=== PATIENT | male | born 1955 | race Caucasian/White ===

== ENCOUNTER → 2018-03-23 09:02 | Outpatient (CLI) | payer MEDICARE, OTHER, SELFPAY ==
[2018-03-23 09:40] LABS: Hemoglobin A1C 6.4 % (4.5-6.2)
[2018-03-23 10:36] LABS: ALT 44 U/L (12-78); AST 21 U/L (15-37); Albumin 3.8 g/dL (3.4-5.0); Alkaline Phosphatase 40 U/L (46-116); Anion Gap 7.9 mmol/L (3-11); BUN 16 mg/dL (7-18); Bilirubin, Total 0.5 mg/dL (0.2-1.0); CO2 30.1 mmol/L (21.0-32.0); CREATININE 1.22 mg/dL (0.70-1.30); Chloride 102 mmol/L (98-107); Cholesterol 139 mg/dL (50-200); Estimated GFR 59.62 (mL/min/1.73m2); Glucose 121 mg/dL (70-100); HDL Cholesterol 32 mg/dL (40-60); LDL CHOLESTEROL 90 mg/dL (<100); Potassium 4.6 mmol/L (3.5-5.1); Sodium 140 mmol/L (136-145); Total Protein 6.8 g/dL (6.4-8.2); Triglyceride 160 mg/dL (30-150)
[2018-03-23 10:56] LABS: TSH 2.64 uIU/mL (0.358-3.74)
== END ==
PROVIDERS: PCP Family Medicine; Visit Provider Family Medicine
DX: I10 Essential (primary) hypertension (principal); E78.5 Hyperlipidemia, unspecified; E03.9 Hypothyroidism, unspecified; R73.01 Impaired fasting glucose
CPT/HCPCS: 36415; 80053; 80061; 83721; 83036; 84443

== ENCOUNTER → 2018-04-04 10:09 | Outpatient (CLI) | payer MEDICARE, OTHER, SELFPAY ==
[2018-04-05 11:27] LABS: Hepatitis C Ab w Rflx HCV PCR Negative (NEGAT)
== END ==
PROVIDERS: PCP Family Medicine; Visit Provider Family Medicine
DX: Z11.59 Encounter for screening for other viral diseases (principal)
CPT/HCPCS: 36415; 86803

== ENCOUNTER → 2018-05-01 08:03 | Outpatient (BNVA) | payer MEDICARE, OTHER, SELFPAY | PROVIDERS: Visit Provider Psychiatry & Neurology Neurology | DX: G56.03 Carpal tunnel syndrome, bilateral upper limbs (principal); G56.23 Lesion of ulnar nerve, bilateral upper limbs; I10 Essential (primary) hypertension | CPT/HCPCS: 95911; 99215 ==

== ENCOUNTER → 2018-05-04 08:03 | Outpatient (BNVA) | payer MEDICARE, OTHER, SELFPAY | PROVIDERS: Visit Provider Psychiatry & Neurology Neurology | DX: R69 Illness, unspecified (principal) ==

== ENCOUNTER → 2018-05-14 09:46 | Outpatient (BNVA) | payer MEDICARE, OTHER, SELFPAY | PROVIDERS: PCP Family Medicine; Referring Provider Family Medicine; Visit Provider Orthopaedic Surgery | DX: G56.01 Carpal tunnel syndrome, right upper limb (principal); G56.02 Carpal tunnel syndrome, left upper limb | CPT/HCPCS: 99211; 99213; L3908 ==

== ENCOUNTER → 2018-06-11 08:57 | Outpatient (BNVA) | payer MEDICARE, OTHER, SELFPAY | PROVIDERS: PCP Family Medicine; Referring Provider Family Medicine; Visit Provider Orthopaedic Surgery | DX: G56.03 Carpal tunnel syndrome, bilateral upper limbs (principal); G56.23 Lesion of ulnar nerve, bilateral upper limbs | CPT/HCPCS: 99211; 99213 ==

== ENCOUNTER 2018-07-06 06:09 | Day surgery (SDC) | payer MEDICARE, OTHER, SELFPAY ==
[2018-07-06] VITALS (7 sets, daily range): BP systolic 72–121; BP diastolic 41–70; PULSE 63–68; RESP 11–20; TEMP 36.4–36.7; O2SAT 95–98
[2018-07-06] MEDS: Lactated Ringers 1,000 ML 80 ML IV ×2 (07:07→09:39)
[2018-07-06] MEDS: Bupivacaine 0.5% Pres-Free 30 ML VIAL IJ (08:20)
[2018-07-06] MEDS: Lidocaine 2% Pres-Free 5 ML VIAL (08:20)
--- NOTE | 2018-07-06 08:54 | W.PM.DSUDISC ---
Discharge Plan Disposition Patient Disposition: HOME Condition: Improving Discharge Details Reason For Visit: (L) CTS Attending Provider: Jermaine Mullen Primary Care Provider: Jaky Ritchie Home Meds and New Rx's Prescriptions: No Action aspirin [Aspirin Low-Strength] 81 MG tablet,chewable 81 mg PO DAILY RF: 0 multivitamin 1 EACH capsule 1 cap PO BID RF: 0 riboflavin (vitamin B2) 100 MG tablet 2 cap PO BID RF: 0 multivitamin, stress formula [Stress Formula] 1 EACH tablet 1 tab-cap PO DAILY RF: 0 coenzyme Q10 100 MG capsule 1 cap PO TID RF: 0 omega-3 fatty acids-fish oil 1 EACH capsule 3 cap PO DAILY RF: 0 Lactobacillus acidophilus 1 EACH capsule 2 cap PO DAILY RF: 0 Bioplasme 4 cap PO DAILY RF: 0 calcium carbonate 600 MG tablet 600 tab PO DAILY RF: 0 alpha lipoic acid 300 MG capsule 600 mg PO DAILY RF: 0 naproxen sodium 550 MG tablet 550 mg PO BID PRNRF: 0 magnesium oxide 500 MG tablet 3 tab PO DAILY RF: 0 cholecalciferol (vitamin D3) [Vitamin D3] 1,000 UNIT capsule 1,000 unit PO DAILY RF: 0 Varicella-Zoster Ge/As01b/Pf [Shingrix Vial Kit] 50 MCG INJ 50 mcg IM ONCE Qty: 1 RF: 1 metformin 500 mg tablet 500 mg PO DAILY Qty: 90 RF: 1 metoprolol succinate 50 mg tablet extended release 24 hr 50 mg PO DAILY Qty: 90 RF: 4 levothyroxine 75 mcg tablet 75 mcg PO DAILY Qty: 90 RF: 4 pravastatin 40 mg tablet 40 mg PO DAILY Qty: 90 RF: 4 lisinopril-hydrochlorothiazide 20-12.5 mg tablet 1 tab PO DAILY Qty: 90 RF: 4 duloxetine 60 mg capsule,delayed release(DR/EC) 60 mg PO DAILY RF: 0 gabapentin 300 mg capsule 300 mg PO BID Qty: 180 RF: 2 Discharge Instructions Additional Instructions: KEEP YOUR LEFT ARM IN THE SPLINT/SLING AND WRIST SPLINT FOR THE NEXT [address] AN ICE PACK OVER THE INNER ASPECT OF YOUR ELBOW 20 MINUTES EVERY HOUR FOR DISCOMFORT. YOU MAY LOOSEN THE 6 INCH CAM BANDAGE OVER YOUR LONG ARM SPLINT AND YOUR UNDERLYING WRIST SPLINT IF THEY FEEL TOO TIGHT. YOU MAY USE YOUR LEFT HAND AND FINGERS MUCH COMFORT ALLOWS EVEN TODAY. ON 07/07/18, YOU MAY REMOVE ALL OF YOUR BANDAGES AND GET YOUR WOUNDS WET IN THE SHOWER WITH SOAP AND WATER. GENTLY PAT YOUR STITCHES DRY AND COVER THEM WITH GAUZE. RESUME NORMAL USE OF YOUR LEFT HAND TOLERATED, GOING WITHOUT THE WRIST SPLINT SOON YOU ARE COMFORTABLE. YOU MAY FLEX AND EXTEND YOUR LEFT ELBOW MUCH YOU WANT ON 07/07/18 AFTER SHOWERING. IF YOU FIND THAT UNCOMFORTABLE, YOU MAY USE THE SLING BUT GO WITHOUT THE FIBERGLASS SPLINT. FOR SLEEPING, STARTING MONDAY EVENING, PLACE A FOLDED PILLOW ABOUT THE LEFT ELBOW AND SAFETY PIN IT LOOSELY TO PROTECT THE ELBOW FROM TRAUMA DURING SLEEP.YOU DO NOT NEED TO USE THE PILLOW SPLINT DURING THE DAY. FOLLOW-UP WITH DR. MULLEN IN 1 WEEK FOR WOUND CHECK. Stand Alone Forms: DSU Post op Instructions, Marlene Echols (DSU) Equipment/Supplies: Brace Activity:: Elevate Remove Dressings/Wound Care:: 48 hours Shower/Bathe:: 48 hours Diet:: As Tolerated Discharge Orders Discharge Orders: Discharge Order (Routine); Ordered 07/06/18 Ordered By: Jermaine Mullen
--- NOTE | 2018-07-06 09:10 | W.PM.DS.N ---
Discharge Plan Disposition Patient Disposition: HOME Condition: Improving Discharge Details Reason For Visit: (L) CTS Attending Provider: Jermaine Mullen Primary Care Provider: Jaky Ritchie Home Meds and New Rx's Prescriptions: No Action aspirin [Aspirin Low-Strength] 81 MG tablet,chewable 81 mg PO DAILY RF: 0 multivitamin 1 EACH capsule 1 cap PO BID RF: 0 riboflavin (vitamin B2) 100 MG tablet 2 cap PO BID RF: 0 multivitamin, stress formula [Stress Formula] 1 EACH tablet 1 tab-cap PO DAILY RF: 0 coenzyme Q10 100 MG capsule 1 cap PO TID RF: 0 omega-3 fatty acids-fish oil 1 EACH capsule 3 cap PO DAILY RF: 0 Lactobacillus acidophilus 1 EACH capsule 2 cap PO DAILY RF: 0 Bioplasme 4 cap PO DAILY RF: 0 calcium carbonate 600 MG tablet 600 tab PO DAILY RF: 0 alpha lipoic acid 300 MG capsule 600 mg PO DAILY RF: 0 naproxen sodium 550 MG tablet 550 mg PO BID PRNRF: 0 magnesium oxide 500 MG tablet 3 tab PO DAILY RF: 0 cholecalciferol (vitamin D3) [Vitamin D3] 1,000 UNIT capsule 1,000 unit PO DAILY RF: 0 Varicella-Zoster Ge/As01b/Pf [Shingrix Vial Kit] 50 MCG INJ 50 mcg IM ONCE Qty: 1 RF: 1 metformin 500 mg tablet 500 mg PO DAILY Qty: 90 RF: 1 metoprolol succinate 50 mg tablet extended release 24 hr 50 mg PO DAILY Qty: 90 RF: 4 levothyroxine 75 mcg tablet 75 mcg PO DAILY Qty: 90 RF: 4 pravastatin 40 mg tablet 40 mg PO DAILY Qty: 90 RF: 4 lisinopril-hydrochlorothiazide 20-12.5 mg tablet 1 tab PO DAILY Qty: 90 RF: 4 duloxetine 60 mg capsule,delayed release(DR/EC) 60 mg PO DAILY RF: 0 gabapentin 300 mg capsule 300 mg PO BID Qty: 180 RF: 2 Discharge Instructions Additional Instructions: KEEP YOUR LEFT ARM IN THE SPLINT/SLING AND WRIST SPLINT FOR THE NEXT [address] AN ICE PACK OVER THE INNER ASPECT OF YOUR ELBOW 20 MINUTES EVERY HOUR FOR DISCOMFORT. YOU MAY LOOSEN THE 6 INCH CAM BANDAGE OVER YOUR LONG ARM SPLINT AND YOUR UNDERLYING WRIST SPLINT IF THEY FEEL TOO TIGHT. YOU MAY USE YOUR LEFT HAND AND FINGERS MUCH COMFORT ALLOWS EVEN TODAY. ON 07/07/18, YOU MAY REMOVE ALL OF YOUR BANDAGES AND GET YOUR WOUNDS WET IN THE SHOWER WITH SOAP AND WATER. GENTLY PAT YOUR STITCHES DRY AND COVER THEM WITH GAUZE. RESUME NORMAL USE OF YOUR LEFT HAND TOLERATED, GOING WITHOUT THE WRIST SPLINT SOON YOU ARE COMFORTABLE. YOU MAY FLEX AND EXTEND YOUR LEFT ELBOW MUCH YOU WANT ON 07/07/18 AFTER SHOWERING. IF YOU FIND THAT UNCOMFORTABLE, YOU MAY USE THE SLING BUT GO WITHOUT THE FIBERGLASS SPLINT. FOR SLEEPING, STARTING MONDAY EVENING, PLACE A FOLDED PILLOW ABOUT THE LEFT ELBOW AND SAFETY PIN IT LOOSELY TO PROTECT THE ELBOW FROM TRAUMA DURING SLEEP.YOU DO NOT NEED TO USE THE PILLOW SPLINT DURING THE DAY. FOLLOW-UP WITH DR. MULLEN IN 1 WEEK FOR WOUND CHECK. TAKE YOUR USUAL MEDICATIONS BEFORE. TAKE TYLENOL, ADVIL OR ALEVE FOR MILDER PAIN. TYLENOL JUD BE TAKEN AT THE SAME TIME ADVIL OR AT THE SAME TIME ALEVE THEY ARE METABOLIZED DIFFERENTLY AND ARE NOT CROSS TOXIC. FOR MORE SERIOUS PAIN TAKE NORCO(HYDROCODONE 5/325MG) 1-2 EVERY 4 HOURS NEEDED. [facility] [place] REGULATIONS LIMIT THE AMOUNT OF HYDROCODONE THAT CAN BE PRESCRIBED TO 18 TABLETS. Stand Alone Forms: DSU Post op Jude, Marlene Echols (DSU) Equipment/Supplies: Brace Activity:: Elevate Remove Dressings/Wound Care:: 48 hours Shower/Bathe:: 48 hours Diet:: As Tolerated Discharge Orders Discharge Orders: Discharge Order (Routine); Ordered 07/06/18 Ordered By: Jermaine Mullen DS: Data Vitals/I&O Vitals and I&O: Vital Signs Temperature 98.1 F 07/06/18 06:18 Pulse 63 07/06/18 06:18 Pulse Rhythm Regular 07/06/18 06:18 Respiratory Rate 20 07/06/18 06:18 Respiratory Depth Normal 07/06/18 06:18 Blood Pressure 121/70 07/06/18 06:18 Pulse Oximetry 95 07/06/18 06:18 Oxygen Delivery Method Room Air 07/06/18 06:18 Oxygen Flow Rate 0 07/06/18 06:18 Pain Level 5 07/06/18 06:18 Intake & Output 07/05/18 07/05/18 07/06/18 11:59 23:59 11:59 Intake Total 50 / 50 Balance 50 / 50 Weight 229 lb 0.964 oz Intake: IV 50 50 [facility] Social History Smoking/Tobacco Use Status: Former Tobacco Use alcohol intake: current alcohol intake frequency: 3 or more drinks per day substance use type: does not use
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
== END 2018-07-06 11:15 | disposition home or self-care (01) ==
PROVIDERS: PCP Family Medicine; Visit Provider Orthopaedic Surgery
PROC: (CPT 29848; principal; 2018-07-06 07:30)
PROC: (CPT 64721; 2018-07-06 07:30)
DX: G56.02 Carpal tunnel syndrome, left upper limb (principal); G56.22 Lesion of ulnar nerve, left upper limb
CPT/HCPCS: 29848; 64718; NC; J0690; J1885; L3908

== ENCOUNTER → 2018-07-12 14:33 | Outpatient (BNVA) | payer MEDICARE, OTHER, SELFPAY | PROVIDERS: PCP Family Medicine; Referring Provider Family Medicine; Visit Provider Orthopaedic Surgery | DX: Z47.89 Encounter for other orthopedic aftercare (principal); G56.02 Carpal tunnel syndrome, left upper limb ==

== ENCOUNTER → 2018-07-26 09:08 | Outpatient (BNVA) | payer MEDICARE, OTHER, SELFPAY | PROVIDERS: PCP Family Medicine; Referring Provider Family Medicine; Visit Provider Orthopaedic Surgery | DX: Z47.89 Encounter for other orthopedic aftercare (principal); G56.02 Carpal tunnel syndrome, left upper limb ==

== ENCOUNTER 2018-08-17 06:07 | Day surgery (SDC) | payer MEDICARE, OTHER, SELFPAY ==
[2018-08-17] VITALS (7 sets, daily range): BP systolic 78–128; BP diastolic 41–83; PULSE 54–62; RESP 12–18; TEMP 35.8–36.5; O2SAT 93–96
[2018-08-17] MEDS: Lactated Ringers 1,000 ML 80 ML IV ×2 (06:47→09:48)
[2018-08-17] MEDS: Bupivacaine 0.5% Pres-Free 30 ML VIAL (08:28)
[2018-08-17] MEDS: Lidocaine 2% Multi-Dose 50 ML VIAL (08:28)
--- NOTE | 2018-08-17 08:52 | PDOC.DSDIS_ITS ---
Discharge Plan Disposition Patient Disposition: HOME Condition: Improving Discharge Details Reason For Visit: right cubital tunnel and carpal tunnel syndrome Attending Provider: Jermaine Pack Primary Care Provider: Jaky Ritchie Home Meds and New Rx's Prescriptions: No Action aspirin [Aspirin Low-Strength] 81 MG tablet,chewable 81 mg PO DAILY RF: 0 multivitamin 1 EACH capsule 1 cap PO BID RF: 0 riboflavin (vitamin B2) 100 MG tablet 2 cap PO BID RF: 0 coenzyme Q10 100 MG capsule 1 cap PO TID RF: 0 omega-3 fatty acids-fish oil 1 EACH capsule 3 cap PO DAILY RF: 0 Lactobacillus acidophilus 1 EACH capsule 2 cap PO DAILY RF: 0 Bioplasme 4 cap PO DAILY RF: 0 calcium carbonate 600 MG tablet 600 tab PO DAILY RF: 0 alpha lipoic acid 300 MG capsule 600 mg PO DAILY RF: 0 naproxen sodium 550 MG tablet 550 mg PO BID PRNRF: 0 magnesium oxide 500 MG tablet 3 tab PO DAILY RF: 0 cholecalciferol (vitamin D3) [Vitamin D3] 1,000 UNIT capsule 1,000 unit PO DAILY RF: 0 Varicella-Zoster Ge/As01b/Pf [Shingrix Vial Kit] 50 MCG INJ 50 mcg IM ONCE Qty: 1 RF: 1 metformin 500 mg tablet 500 mg PO DAILY Qty: 90 RF: 1 metoprolol succinate 50 mg tablet extended release 24 hr 50 mg PO DAILY Qty: 90 RF: 4 levothyroxine 75 mcg tablet 75 mcg PO DAILY Qty: 90 RF: 4 pravastatin 40 mg tablet 40 mg PO DAILY Qty: 90 RF: 4 lisinopril-hydrochlorothiazide 20-12.5 mg tablet 1 tab PO DAILY Qty: 90 RF: 4 duloxetine 60 mg capsule,delayed release(DR/EC) 60 mg PO DAILY RF: 0 gabapentin 300 mg capsule 300 mg PO BID Qty: 180 RF: 2 Discharge Instructions Additional Instructions: Keep your long arm splint and wrist splint on for the next 48 hours. However, you may loosen the 6 inch esequiel bandage if it feels too tight. You may loosen the velcro straps of the wrist splint or the 3 inch esequiel bandage below it if they feel too tight as well. Expect a small amount of bloody drainage on the underlying gauze bandages. Use the sling to help suspend the weight of the long arm splint. Remove the sling at night and wrap the arm in a pillow splint (bed pillow folded over the splint with a safety pin to secure it) to help elevate the wounds while you are sleeping. On 08/19/18, you may remove all of your bandages and splint and get your wounds wet in the shower with soap and water. Gently pat the stitches dry and cover them with gauze. Resume normal use of your arm and hand as tolerated. You may use the velcro wrist splint for continued hand pain and you may use the sling for the elbow. Follow up with Dr. Pack in 1 week for stitch removal and wound check. Take your usual medications as before. Take tylenol, advil or aleve for milder pain. Tylenol may be taken at the same time as advil, or at the same time as aleve as they are metabolized differently and are not cros toxic. Take norco (hydrocodone 5/325mg) 1-2 every 4 hours for more serious pain. [facility] [place] limit the amount of norco that can be prescribed to 18 tablets. Equipment/Supplies: Brace Activity:: Elevate Remove Dressings/Wound Care:: 48 hours Shower/Bathe:: 48 hours Diet:: As Tolerated Discharge Orders Discharge Orders: Discharge Order (Routine); Ordered 08/17/18 Ordered By: Jermaine Pack
--- NOTE | 2018-08-17 10:02 | ROE_ITS ---
REPORT OF OPERATIVE PROCEDURE DATE OF SURGERY August 17, 2018 PREOPERATIVE DIAGNOSES Right cubital tunnel syndrome and right carpal tunnel syndrome. POSTOPERATIVE DIAGNOSES Right cubital tunnel syndrome and right carpal tunnel syndrome. PROCEDURES 1. Decompression ulnar nerve at cubital tunnel. 2. Open carpal tunnel release. SURGEON Jermaine Pack M.D. FEATHER WASHER Nurse. ANESTHETIC General via LMA by Yudy Agrawal CRNA PREP ChloraPrep. INDICATIONS This patient has had bilateral elbow symptomatology for several years. He also has diabetic neuropath y. He was seen by Dr. Davidson, who diagnosed cubital tunnel syndrome and carpal tunnel syndrome o f both upper extremities. Approximately 6 weeks ago, he underwent surgery with successful decompress ion of the left ulnar nerve at the cubital tunnel along with open carpal tunnel release. He has had a good result from that. He now returns to have identical procedure done on the right upper extremity. There were symptoms of involvement of the ulnar nerve and it was unclear if the majority of it was c oming from compression of the nerve at the cubital tunnel or at Guyon's canal. I felt that doing a ca rpal tunnel release would also decompress Guyon canal in concert with the cubital tunnel release. I r eviewed the planned procedure with the patient and his in the Day Surgery holding area. I marked his right upper extremity. He consented and wished to proceed. PROCEDURE DESCRIPTION He was brought to the Operating Suite. He underwent general anesthesia via LMA using Propofol only. T his is because he had a history of posttraumatic stress disorder from a closed head injury. This work ed well from his previous procedure with no untoward effects from the anesthesia. 2 grams of Ancef we re given as a prophylactic intravenous antibiotic. A pneumatic tourniquet was applied to the proximal brachium. Timeout was instituted and then the right upper extremity was prepped with ChloraPrep. The tourniquet was elevated after exsanguinating the limb for 2 minutes. I approached the ulnar nerve a t the cubital tunnel first by making a curvilinear incision in between the interval between the media l epicondyle and the olecranon. The skin and subcutaneous tissues were incised and hemostasis control led by electrocautery on a low setting. Loupe magnification was used throughout. The ulnar nerve was identified without difficulty. A no-touch technique was employed and the nerve was encircled with a P enrose drain, with the Eagle drain functioning as a handle on the nerve to prevent instrumentation trauma. The nerve was completely decompressed over the posterior aspect of the humerus and then acros s to the forearm releasing Burch's ligament. After making sure there were no bands of tissue compre ssing the ulnar nerve, I flex and extended the elbow and noted that the nerve was stable and did not tend to subluxate in the groove. I then proceeded to do a [place] Carpal tunnel incision over the h and. This was centered over the ring finger ray. Care was taken to deviate the incision in an ulnar d irection as it crossed the flexion crease of the wrist, so as to prevent injury to the palmar cutaneo us branch and the median nerve. The incision was carried sharply down through the palmar fascia and t he transverse carpal ligament was incised with a #15-scalpel blade under direct vision. There was mod erate flattening of the median nerve in the mid portion of the carpal tunnel. There was mild tenosyno vitis. I did not find any loose bodies, foreign bodies or ganglion cysts within the tunnel. The tourn iquet was then deflated. Hemostasis was under control. I first closed the subcutaneous tissue at the elbow with sutures of #3-0 Vicryl. Then I closed the skin with simple sutures of 4-0 Ethilon. The car pal tunnel incision was closed with sutures of 4-0 Ethilon in an alternating fashion between simple s utures and [id number]-zkk-dyz-near retention sutures. Both wounds were dressed with Xeroform gauze, 4x4s, a nd conforming gauze bandage, followed by the application of a 3-inch Telly wrap for the carpal tunnel, and a commercial wrist immobilizer, a long-arm fiberglass splint with cotton padding was then fabric ated for the elbow, holding the elbow in 90 degrees of flexion and avoiding any direct compression ov er the medial epicondylar area. This was suspended by a sling. The patient tolerated the procedure we ll. ESTIMATED BLOOD LOSS 2 cc. Marcaine was used in the cubital tunnel incision approximately 7 cc and 10 cc of 2% lidocaine was use d in the carpal tunnel incision for postoperative analgesia.
== END 2018-08-17 11:10 | disposition home or self-care (01) ==
PROVIDERS: PCP Family Medicine; Visit Provider Orthopaedic Surgery
PROC: (CPT 64718; principal; 2018-08-17 07:30)
PROC: (CPT 64721; 2018-08-17 07:30)
DX: G56.21 Lesion of ulnar nerve, right upper limb (principal); G56.01 Carpal tunnel syndrome, right upper limb
CPT/HCPCS: 64718; 64721; J1885; L3650; L3908

== ENCOUNTER → 2018-08-23 14:13 | Outpatient (BNVA) | payer MEDICARE, OTHER, SELFPAY | PROVIDERS: PCP Family Medicine; Referring Provider Family Medicine; Visit Provider Orthopaedic Surgery | DX: G56.03 Carpal tunnel syndrome, bilateral upper limbs (principal); Z47.89 Encounter for other orthopedic aftercare ==

== ENCOUNTER 2018-08-25 10:23 | Emergency (ER) | payer MEDICARE, OTHER, SELFPAY ==
[2018-08-25 10:31] VITALS: BP 149/86; PULSE 73; RESP 18; TEMP 36.3; O2SAT 100
--- NOTE | 2018-08-25 11:01 | ED.GENADUL_ITS ---
Discharge Plan Disposition Patient Disposition: HOME Condition: Improving Discharge Details Chief Complaint: Orthopedic Clinical Impression: Dehiscence of surgical wound Primary Care Provider: Jaky Ritchie ED Provider: Garrett Lancaster Home Meds and New Rx's Prescriptions: Continued aspirin [Aspirin Low-Strength] 81 MG tablet,chewable 81 mg PO DAILY RF: 0 multivitamin 1 EACH capsule 1 cap PO BID RF: 0 riboflavin (vitamin B2) 100 MG tablet 2 cap PO BID RF: 0 coenzyme Q10 100 MG capsule 1 cap PO TID RF: 0 omega-3 fatty acids-fish oil 1 EACH capsule 3 cap PO DAILY RF: 0 Lactobacillus acidophilus 1 EACH capsule 2 cap PO DAILY RF: 0 Bioplasme 4 cap PO DAILY RF: 0 calcium carbonate 600 MG tablet 600 tab PO DAILY RF: 0 alpha lipoic acid 300 MG capsule 600 mg PO DAILY RF: 0 naproxen sodium 550 MG tablet 550 mg PO BID PRNRF: 0 magnesium oxide 500 MG tablet 3 tab PO DAILY RF: 0 cholecalciferol (vitamin D3) [Vitamin D3] 1,000 UNIT capsule 1,000 unit PO DAILY RF: 0 Varicella-Zoster Ge/As01b/Pf [Shingrix Vial Kit] 50 MCG INJ 50 mcg IM ONCE Qty: 1 RF: 1 metformin 500 mg tablet 500 mg PO DAILY Qty: 90 RF: 1 metoprolol succinate 50 mg tablet extended release 24 hr 50 mg PO DAILY Qty: 90 RF: 4 levothyroxine 75 mcg tablet 75 mcg PO DAILY Qty: 90 RF: 4 pravastatin 40 mg tablet 40 mg PO DAILY Qty: 90 RF: 4 lisinopril-hydrochlorothiazide 20-12.5 mg tablet 1 tab PO DAILY Qty: 90 RF: 4 duloxetine 60 mg capsule,delayed release(DR/EC) 60 mg PO DAILY RF: 0 gabapentin 300 mg capsule 300 mg PO BID Qty: 180 RF: 2 Discharge Instructions Instructions: Acute Wound Care (ED), Steristrips (ED) Additional Instructions: Return immediately to the emergency department for any signs of infection such as purulent drainage, streaking redness, any significant worsening of swelling o r pain. Otherwise keep wound clean and dry and keep new dressing on for at least the next 24 hours and then you may change dressings as needed. If no signs of infection occur please call orthopedic office for any need of change in your follow-up appointment. Referrals: Jermaine Pack MD [ [facility] STAFF PHYSICIAN] - Discharge Data Discharge Date/Time-TO BE ENTERED AT DEPARTURE: 08/25/18 11:06 Medical Decision Making Patient presenting to the emergency department for chief complaint of postsurgical wound complication. Patient states that he had carpal tunnel surgery a week ago Monday and saw orthopedist 2 days ago which remove stitches and placed on Steri-Strips. Patient states that he excellently got his bandage wet and removed the scabbing causing the wound to open up this morning. Patient denies any fever chills, streaking redness, purulent drainage. Patient has approximately a 4-1/2 cm surgical laceration to the palmar aspect of the right hand. There is no purulent drainage noted on exam no visible deep structure exposure no streaking redness or unexpected erythema postsurgically. Using ster ile technique wound was cleansed with Betadine and irrigated with sterile saline, and reapproximated with Steri-Strips. Wound was then covered with sterile gauze. Patient was encouraged to minimally use hand over the next week and to attempt to protect the wound to minimize further reopening of the wound. I do not see signs of infections I do not feel that patient needs antibiotic therapy at this time but he was encouraged to watch wound closely and return immediately for any signs of infection which were thoroughly discussed. After discussion of diagnosis and plan of care patient has no further needs, questions, or concerns and states clear understanding to return to the emergency department for any worsening symptoms. HPI General Mode of arrival: ambulatory . Date/Time Provider Initiated Documentation: 08/25/18 10:28 . Limitations to Documentation: no limitations . Information obtained by: patient, RN notes reviewed and old records reviewed . History of Present Illness 63 year old M presents to the emergency department with the chief complaint of Postsurgical wound issue, Quality is described as other (denies pain), and is localized to the right and upper extremity. Patient started experiencing this day(s) (1) and it has been constant. No relieving factors improve symptom(s), No exacerbating factors reported . Patient notes no other symptoms.. Patient did receive the following treatments prior to arrival, none Related Data Home Medications Medication Instructions Recorded Confirmed aspirin [Aspirin Low-Strength] 81 mg PO DAILY tab-cap 12/21/12 08/17/18 multivitamin 1 cap PO BID 12/21/12 08/17/18 Bioplasme 4 cap PO DAILY 01/26/17 08/17/18 Lactobacillus acidophilus 2 cap PO DAILY 01/26/17 08/17/18 alpha lipoic acid 600 mg PO DAILY 01/26/17 08/17/18 calcium carbonate 600 tab PO DAILY 01/26/17 08/17/18 coenzyme Q10 1 cap PO TID 01/26/17 08/17/18 naproxen sodium 550 mg PO BID PRN 01/26/17 08/17/18 omega-3 fatty acids-fish oil 3 cap PO DAILY 01/26/17 08/17/18 riboflavin (vitamin B2) 2 cap PO BID 01/26/17 08/17/18 cholecalciferol (vitamin D3) 1,000 unit PO DAILY 02/21/17 08/17/18 [Vitamin D3] magnesium oxide 3 tab PO DAILY 02/21/17 08/17/18 metformin 500 mg tablet 500 mg PO DAILY #90 tab 04/13/18 08/17/18 levothyroxine 75 mcg tablet 75 mcg PO DAILY #90 tab 04/16/18 08/17/18 lisinopril 20 1 tab PO DAILY #90 tab 04/16/18 08/17/18 mg-hydrochlorothiazide 12.5 mg tablet metoprolol succinate ER 50 mg 50 mg PO DAILY #90 tab 04/16/18 08/17/18 tablet,extended release 24 hr pravastatin 40 mg tablet 40 mg PO DAILY #90 tab 04/16/18 08/17/18 duloxetine 60 mg capsule,delayed 60 mg PO DAILY 05/03/18 08/17/18 release gabapentin 300 mg capsule 300 mg PO BID #180 cap 06/26/18 08/17/18 Previous Rx's Medication Instructions Recorded metformin 500 mg tablet 500 mg PO DAILY #90 tab 04/13/18 levothyroxine 75 mcg tablet 75 mcg PO DAILY #90 tab 04/16/18 lisinopril 20 1 tab PO DAILY #90 tab 04/16/18 mg-hydrochlorothiazide 12.5 mg tablet metoprolol succinate ER 50 mg 50 mg PO DAILY #90 tab 04/16/18 tablet,extended release 24 hr pravastatin 40 mg tablet 40 mg PO DAILY #90 tab 04/16/18 gabapentin 300 mg capsule 300 mg PO BID #180 cap 06/26/18 Allergies Allergy/AdvReac Type Severity Reaction Status Date / Time zonisamide AdvReac Mild Verified 08/17/18 06:24 GRASS Allergy Unknown Uncoded 08/17/18 06:24 MOLDS AND SMUTS Allergy Unknown Uncoded 08/17/18 06:24 General Stated Complaint: Orthopedic RADHA: 4 Review of Systems Constitutional Denies chills and Denies fever(s) Musculoskeletal Reports as per HPI and Denies joint swelling Integumentary/Breasts Reports as per HPI, Denies new lesions, Denies rash, Denies skin swelling, Denies sores and Reports wounds [facility] Medical History Sensorineural hearing loss, bilateral (Chronic 07/16/15) Sciatica (Chronic 07/06/01) Postconcussion syndrome (Chronic 12/25/13) Hypothyroidism (Chronic 12/24/12) Hyperlipidemia (Chronic 12/24/12) Essential hypertension (Chronic 08/30/13) Anxiety (Chronic 12/20/11) Allergic rhinitis (Chronic) Acute appendicitis (Resolved) Excessive drinking alcohol (Chronic) Prediabetes (Chronic) Surgical History Appendectomy (07/07/16) Repair, Tendon or Muscle (~06/2010) Tonsillectomy and adenoidectomy (~10/1960) Tooth extraction Family History Mother Essential hypertension Neoplasm Father Essential hypertension Heart disease Hyperlipidemia Sister Blood glucose abnormal Sister Graves' disease Essential hypertension Hyperlipidemia Sister Heart disease Sister Heart disease Brother Stroke Grandfather No problems noted. Grandfather Heart disease Grandmother No problems noted. Grandmother Heart disease Son Essential hypertension Daughter No problems noted. Maternal Uncle Leukemia Social History Smoking/Tobacco Use Status: Never alcohol intake: current alcohol intake frequency: 3 or more drinks per day substance use type: does not use Exam Const General: cooperative, healthy appearing, no acute distress and not ill appearing Orientation: alert, awake and oriented x3 Resp Effort & Inspection: normal respiratory effort and able to speak in complete se ntences Cardio Rate: regular rate Rhythm: regular rhythm Skin Trauma: laceration ( approximately 4-1/2 cm laceration to the palmar aspect R hand) Course Vital Signs Temperature 36.3 C L 08/25/18 10:31 Pulse 73 08/25/18 10:31 Respiratory Rate 18 08/25/18 10:31 Blood Pressure 149/86 H 08/25/18 10:31 Pulse Oximetry 100 08/25/18 10:31 Temperature 36.3 C L 08/25/18 10:31 Temperature Source Temporal Artery Scan 08/25/18 10:31 Pulse 73 08/25/18 10:31 Respiratory Rate 18 08/25/18 10:31 Respiratory Effort 08/25/18 10:33 Blood Pressure 149/86 H 08/25/18 10:31 Blood Pressure Position Sitting 08/25/18 10:31 Pulse Oximetry 100 08/25/18 10:31 Oxygen Delivery Method Room Air 08/25/18 10:31 Oxygen Flow Rate 0 08/25/18 10:31 Pain Level 0 08/25/18 10:31
== END 2018-08-25 11:06 | disposition home or self-care (01) ==
PROVIDERS: Emergency Provider Nurse Practitioner Family; PCP Family Medicine
DX: T81.31XA Disruption of external operation (surgical) wound, not elsewhere classified, initial encounter (principal)
CPT/HCPCS: 99282

== ENCOUNTER → 2018-09-06 11:14 | Outpatient (BNVA) | payer MEDICARE, OTHER, SELFPAY | PROVIDERS: PCP Family Medicine; Referring Provider Family Medicine; Visit Provider Orthopaedic Surgery | DX: Z47.89 Encounter for other orthopedic aftercare (principal); G56.03 Carpal tunnel syndrome, bilateral upper limbs; E11.9 Type 2 diabetes mellitus without complications; Z79.84 Long term (current) use of oral hypoglycemic drugs ==

== ENCOUNTER 2019-02-13 11:10 | Emergency (ER) | payer MEDICARE, OTHER, SELFPAY ==
[2019-02-13 11:14] VITALS: BP 162/94; PULSE 67; RESP 16; TEMP 36.6; O2SAT 94
--- NOTE | 2019-02-13 11:27 | ED.GENADUL_ITS ---
Discharge Plan Disposition Patient Disposition: HOME Condition: Stable Discharge Details Chief Complaint: Orthopedic Clinical Impression: Cellulitis of thumb, left Primary Care Provider: Jaky Ritchie ED Provider: Saul Lopez [place] Meds and New Rx's Prescriptions: New amoxicillin-pot clavulanate [Augmentin] 875-125 mg tablet 1 tab PO BID Qty: 14 RF: 0 Continued Stress B-Complex 500 mg-400 mcg- 24 mg-3 mg tablet 1 tab PO DAILY RF: 0 aspirin [Aspirin Low-Strength] 81 MG tablet,chewable 81 mg PO DAILY RF: 0 multivitamin 1 EACH capsule 1 cap PO BID RF: 0 riboflavin (vitamin B2) 100 MG tablet 2 cap PO BID RF: 0 Lactobacillus acidophilus 1 EACH capsule 2 cap PO DAILY RF: 0 Bioplasme 4 cap PO DAILY RF: 0 calcium carbonate 600 MG tablet 600 tab PO DAILY RF: 0 alpha lipoic acid 300 MG capsule 600 mg PO DAILY RF: 0 naproxen sodium 550 MG tablet 550 mg PO BID PRNRF: 0 cholecalciferol (vitamin D3) [Vitamin D3] 1,000 UNIT capsule 1,000 unit PO DAILY RF: 0 Varicella-Zoster Ge/As01b/Pf [Shingrix Vial Kit] 50 MCG INJ 50 mcg IM ONCE Qty: 1 RF: 1 duloxetine 60 mg capsule,delayed release(DR/EC) 60 mg PO DAILY Qty: 90 RF: 4 gabapentin 300 mg capsule 300 mg PO BID Qty: 180 RF: 2 metformin 500 mg tablet 500 mg PO DAILY Qty: 90 RF: 1 metoprolol succinate 50 mg tablet extended release 24 hr 50 mg PO DAILY Qty: 90 RF: 4 pravastatin 40 mg tablet 40 mg PO DAILY Qty: 90 RF: 4 levothyroxine 75 mcg tablet 75 mcg PO DAILY Qty: 90 RF: 4 lisinopril-hydrochlorothiazide 20-12.5 mg tablet 1 tab PO DAILY Qty: 90 RF: 4 coenzyme Q10 100 mg capsule 400 mg PO DAILY RF: 0 magnesium oxide 500 mg tablet See Patient Comments PO DAILY RF: 0 omega-3 fatty acids-fish oil 300-1,000 mg capsule 3 cap PO DAILY RF: 0 Discharge Instructions Instructions: Cellulitis (ED) Additional Instructions: You are being treated for a skin infection. If not better in 5 days have your primary care providers office reevaluate it. if redness spreads to the hand, you have severe pain or high fevers return to the emergency department Medical Decision Making 63 yo male states for a few days now has had nontraumatic left distal thumb pain. He states he did have a small abrasion of the thumb and has had progressive swelling and pain so came here for an evaluation. He does have redness and mild swelling of left thumb, intact sensation and full rom. It is not significantly warm to touch but given the redness and swelling will tx as cellulitis. Has no severe pain, fevers or crepitus so douubt nec fasc or sepsis at this time. Differential Diagnosis cellulitis, overuse syndrome HPI General Mode of arrival: ambulatory . Date/Time Provider Initiated Documentation: 02/13/19 11:16 . Limitations to Documentation: no limitations . Information obtained by: patient . History of Present Illness 63 year old M presents to the emergency department with the chief complaint of left thumb pain, described as moderate, Quality is described as aching, and is localized to the left and upper extremity. Patient reports no radiation. Patient started experiencing this day(s) (5) and it has been constant. No relieving factors improve symptom(s), No exacerbating factors reported . Patient notes no other symptoms.. Patient did receive the following treatments prior to arrival, none Related Data Home Medications Medication Instructions Recorded Confirmed aspirin [Aspirin Low-Strength] 81 mg PO DAILY tab-cap 12/21/12 09/18/18 multivitamin 1 cap PO BID 12/21/12 09/18/18 Bioplasme 4 cap PO DAILY 01/26/17 09/18/18 Lactobacillus acidophilus 2 cap PO DAILY 01/26/17 09/18/18 alpha lipoic acid 600 mg PO DAILY 01/26/17 09/18/18 calcium carbonate 600 tab PO DAILY 01/26/17 09/18/18 naproxen sodium 550 mg PO BID PRN 01/26/17 09/18/18 riboflavin (vitamin B2) 2 cap PO BID 01/26/17 09/18/18 cholecalciferol (vitamin D3) 1,000 unit PO DAILY 02/21/17 09/18/18 [Vitamin D3] duloxetine 60 mg capsule,delayed 60 mg PO DAILY #90 cap 09/05/18 09/18/18 release gabapentin 300 mg capsule 300 mg PO BID #180 cap 09/05/18 09/18/18 levothyroxine 75 mcg tablet 75 mcg PO DAILY #90 tab 09/05/18 09/18/18 metformin 500 mg tablet 500 mg PO DAILY #90 tab 09/05/18 09/18/18 metoprolol succinate ER 50 mg 50 mg PO DAILY #90 tab 09/05/18 09/18/18 tablet,extended release 24 hr pravastatin 40 mg tablet 40 mg PO DAILY #90 tab 09/05/18 09/18/18 lisinopril 20 1 tab PO DAILY #90 tab 09/17/18 09/18/18 mg-hydrochlorothiazide 12.5 mg tablet B complex-C 500 mg-folic 400 1 tab PO DAILY tab 09/18/18 09/18/18 mcg-zinc 24 mg-copper 3 mg-vit E tablet coenzyme Q10 100 mg capsule 400 mg PO DAILY cap 09/18/18 09/18/18 magnesium oxide 500 mg tablet See Rx Instructions PO DAILY 09/18/18 09/18/18 omega-3 fatty acids-fish oil 300 3 cap PO DAILY 09/18/18 09/18/18 mg-1,000 mg capsule amoxicillin-pot clavulanate 1 tab PO BID #14 tab 02/13/19 [Augmentin] Previous Rx's Medication Instructions Recorded duloxetine 60 mg capsule,delayed 60 mg PO DAILY #90 cap 09/05/18 release gabapentin 300 mg capsule 300 mg PO BID #180 cap 09/05/18 levothyroxine 75 mcg tablet 75 mcg PO DAILY #90 tab 09/05/18 metformin 500 mg tablet 500 mg PO DAILY #90 tab 09/05/18 metoprolol succinate ER 50 mg 50 mg PO DAILY #90 tab 09/05/18 tablet,extended release 24 hr pravastatin 40 mg tablet 40 mg PO DAILY #90 tab 09/05/18 lisinopril 20 1 tab PO DAILY #90 tab 09/17/18 mg-hydrochlorothiazide 12.5 mg tablet amoxicillin-pot clavulanate 1 tab PO BID #14 tab 02/13/19 [Augmentin] Allergies Allergy/AdvReac Type Severity Reaction Status Date / Time zonisamide AdvReac Mild Verified 09/18/18 10:14 GRASS Allergy Unknown Uncoded 09/18/18 10:14 MOLDS AND SMUTS Allergy Unknown Uncoded 09/18/18 10:14 General Stated Complaint: Orthopedic RADHA: 4 Review of Systems Review of Systems All systems reviewed & are unremarkable except as noted in HPI and below Constitutional Denies chills, Denies fever(s) and Denies weakness ENT Denies change in voice Cardiovascular Denies chest pain and Denies dyspnea Respiratory Denies dyspnea Gastrointestinal Denies abdominal pain, Denies nausea and Denies vomiting Musculoskeletal Denies joint swelling Neurologic Denies weakness PFS Social History Smoking/Tobacco Use Status: Never Alcohol Intake: current Alcohol Intake frequency: 3 or more drinks per day Drug use: Never Substance use type: does not use Do you feel safe at home: Yes Do you feel safe in your relationship?: Yes Exam Const General: no acute distress Orientation: alert HENMT Head: normal to inspection Ears: external ears normal General nose exam: external nose normal Mouth: moist mucous membranes Eyes General: appearance normal, both eyes and all related structures Neck Neck: normal visual inspection Resp Effort & Inspection: normal respiratory effort and able to speak in complete sentences Cardio Rate: regular rate Skin General skin exam: elasticity normal Neuro General: alert and oriented x3 Extrem General: full ROM and normal capillary refill Psych Mental Status: mental status grossly normal Course Vital Signs Temperature 36.6 C 02/13/19 11:14 Pulse 67 02/13/19 11:14 Respiratory Rate 16 02/13/19 11:14 Blood Pressure 162/94 H 02/13/19 11:14 Pulse Oximetry 94 L 02/13/19 11:14 Temperature 36.6 C 02/13/19 11:14 Temperature Source Temporal Artery Scan 02/13/19 11:14 Pulse 67 02/13/19 11:14 Respiratory Rate 16 02/13/19 11:14 Respiratory Effort Non-Labored 02/13/19 11:16 Blood Pressure 162/94 H 02/13/19 11:14 Pulse Oximetry 94 L 02/13/19 11:14 Oxygen Delivery Method Room Air 02/13/19 11:14 Oxygen Flow Rate 0 02/13/19 11:14 Pain Level 7 02/13/19 11:17
[2019-02-13 15:27] VITALS: BP 162/94; PULSE 67; RESP 16; TEMP 36.6; O2SAT 94
== END 2019-02-13 11:40 | disposition home or self-care (01) ==
LOC: ER 11:51
PROVIDERS: Emergency Provider Emergency Medicine; PCP Family Medicine
DX: L03.012 Cellulitis of left finger (principal); I10 Essential (primary) hypertension
CPT/HCPCS: 99283

== ENCOUNTER 2019-03-21 07:39 | Outpatient (CLI) | payer MEDICARE, OTHER, SELFPAY ==
[2019-03-21 08:46] LABS: Hemoglobin A1C 6.5 % (4.5-6.2)
[2019-03-21 08:49] LABS: COMMENT (LAB VIEW ONLY) 173.56 mg/dL
[2019-03-21 09:29] LABS: ALT 47 U/L (12-78); AST 22 U/L (15-37); Albumin 3.9 g/dL (3.4-5.0); Alkaline Phosphatase 48 U/L (46-116); Anion Gap 11.2 mmol/L (3-11); BUN 19 mg/dL (7-18); Bilirubin, Total 0.4 mg/dL (0.2-1.0); CO2 27.8 mmol/L (21.0-32.0); Calcium 8.9 mg/dL (8.5-10.1); Chloride 102 mmol/L (98-107); Glucose 120 mg/dL (70-100); Potassium 4.5 mmol/L (3.5-5.1); Sodium 141 mmol/L (136-145); TSH 5.01 uIU/mL (0.36-3.74); Total Protein 7.2 g/dL (6.4-8.2)
[2019-03-23 07:18] LABS: Gabapentin 1.2 mcg/mL (2.0-20.0)
== END 2019-03-21 07:59 ==
PROVIDERS: PCP Family Medicine; Visit Provider Family Medicine
DX: E03.9 Hypothyroidism, unspecified (principal); R73.03 Prediabetes; G43.909 Migraine, unspecified, not intractable, without status migrainosus
CPT/HCPCS: 36415; 80053; 80171; 82043; 82570; 83036; 84443

== ENCOUNTER → 2019-04-25 09:58 | Outpatient (BNVA) | payer MEDICARE, OTHER, SELFPAY | PROVIDERS: PCP Family Medicine; Visit Provider Nurse Practitioner Adult Health | DX: G56.03 Carpal tunnel syndrome, bilateral upper limbs (principal); G56.23 Lesion of ulnar nerve, bilateral upper limbs | CPT/HCPCS: 95911; 99213 ==

== ENCOUNTER 2019-05-27 13:48 | Outpatient (CLI) | payer MEDICARE, OTHER, SELFPAY ==
[2019-05-27 15:08] LABS: TSH 2.48 uIU/mL (0.36-3.74)
== END 2019-05-27 14:08 ==
PROVIDERS: PCP Family Medicine; Visit Provider Family Medicine
DX: E03.9 Hypothyroidism, unspecified (principal); I10 Essential (primary) hypertension; G56.03 Carpal tunnel syndrome, bilateral upper limbs; G56.23 Lesion of ulnar nerve, bilateral upper limbs; Z47.89 Encounter for other orthopedic aftercare
CPT/HCPCS: 36415; 99214; 84443

== ENCOUNTER 2019-07-15 11:28 | Outpatient (CLI) | payer MEDICARE, OTHER, SELFPAY ==
--- NOTE | 2019-07-15 11:24 | DI.RAD_ITS ---
EXAM: XR CHEST 2V PA LATERAL INDICATION: cough, upper respiratory infection acute, J06.9. COMPARISON: CHEST 2 VIEWS PA,LAT from 10/16/2013 TECHNIQUE: 2D digital imaging was performed. FINDINGS: The heart size is normal. The lungs are clear. No infiltrate or effusion is seen. There are no vis ible emphysematous or fibrotic changes. IMPRESSION: Negative chest x-ray.
[2019-07-15 11:59] LABS: Abs Immature Grans 0.11 k/cumm (0.0-0.09); Absolute Basophil Count 0.08 k/cumm (0.0-0.2); Absolute Eosinophil Count 0.25 k/cumm (0.0-0.7); Absolute Lymphocyte Count 2.06 k/cumm (1.2-3.4); Absolute Monocyte Count 0.55 k/cumm (0.11-0.7); Absolute Neutrophil Count 3.04 k/cumm (1.2-6.7); Basophils % 1.3; Eosinophils % 4.1; HCT 41.4 % (40.0-50.0); HGB 14.7 g/dL (13.5-17.5); Immature Grans % 1.8; Lymphocytes % 33.8; Mean Corp. HGB Concentration 35.5 g/dL (32.0-36.0); Mean Corpuscular Hemoglobin 32.5 pg (27.0-33.0); Mean Corpuscular Volume 91.4 fL (80-95); Mean Platelet Volume 9.8 fL (8.0-11.0); Platelet Count 282 x1000/uL (130-400); RBC 4.53 m/cumm (4.50-6.00); RBC Distribution Width 12.2 % (11.8-14.1); White Blood Cell Count 6.09 k/cumm (4.4-10.8)
== END 2019-07-15 11:48 ==
PROVIDERS: PCP Family Medicine; Visit Provider Internal Medicine
DX: R05 Cough (principal); R50.9 Fever, unspecified; J06.9 Acute upper respiratory infection, unspecified
CPT/HCPCS: 36415; 71046; 85025

== ENCOUNTER 2019-08-10 01:03 | Outpatient (CLI) | payer MEDICARE, OTHER, SELFPAY ==
[2019-08-11 08:13] LABS: Hemoglobin A1C 6.7 % (3.8-5.6)
== END 2019-08-10 01:23 ==
PROVIDERS: PCP Family Medicine; Visit Provider Family Medicine
DX: E11.9 Type 2 diabetes mellitus without complications (principal)
CPT/HCPCS: 36415; 83036

== ENCOUNTER 2019-12-25 01:09 | Outpatient (CLI) | payer MEDICARE, OTHER, SELFPAY ==
[2019-12-25 09:48] LABS: Hemoglobin A1C 6.5 % (3.8-5.6)
[2019-12-25 10:17] LABS: ALT 52 U/L (16-63); AST 28 U/L (15-37); Albumin 4.1 g/dL (3.4-5.0); Alkaline Phosphatase 50 U/L (46-116); BUN 23 mg/dL (7-18); Bilirubin, Total 0.7 mg/dL (0.2-1.0); CREATININE 1.12 mg/dL (0.70-1.30); Calcium 8.9 mg/dL (8.5-10.1); Calculated LDL 86 mg/dL (<100); Chloride 100 mmol/L (98-107); Cholesterol 163 mg/dL (<200); Glucose 124 mg/dL (74-106); HDL Cholesterol 37 mg/dL (40-60); Potassium 4.2 mmol/L (3.5-5.1); Sodium 138 mmol/L (136-145); TSH 3.48 uIU/mL (0.36-3.74); Total Protein 7.3 g/dL (6.4-8.2); Triglyceride 204 mg/dL (<150)
== END 2019-12-25 01:29 ==
PROVIDERS: PCP Family Medicine; Visit Provider Family Medicine
DX: E03.9 Hypothyroidism, unspecified (principal); E11.9 Type 2 diabetes mellitus without complications; F41.9 Anxiety disorder, unspecified
CPT/HCPCS: 36415; 80053; 80061; 83036; 84443

== ENCOUNTER 2020-04-23 04:24 | Outpatient (CLI) | payer MEDICARE, OTHER, SELFPAY ==
[2020-04-23 10:40] LABS: Hemoglobin A1C 6.4 % (<5.7)
[2020-04-23 10:57] LABS: Anion Gap 5.2 mmol/L (3-11); BUN 19 mg/dL (7-18); CO2 32.8 mmol/L (21.0-32.0); CREATININE 1.15 mg/dL (0.70-1.30); Chloride 102 mmol/L (98-107); Glucose 117 mg/dL (74-106); Potassium 4.7 mmol/L (3.5-5.1); Sodium 140 mmol/L (136-145)
[2020-04-23 11:30] LABS: COMMENT (LAB VIEW ONLY) 51.97 mg/dL; Microalb ug/mg Crea 7.5 ug/mg Cr
== END 2020-04-23 04:44 ==
PROVIDERS: PCP Family Medicine; Visit Provider Family Medicine
DX: E11.9 Type 2 diabetes mellitus without complications (principal)
CPT/HCPCS: 36415; 80048; 82043; 82570; 83036

== ENCOUNTER 2020-06-02 00:41 | Outpatient (CLI) | payer MEDICARE, SELFPAY ==
--- NOTE | 2020-06-02 09:00 | ETT_ITS ---
APPROVED REPORT Exam: Exercise Treadmill Patient Location: Out-Patient Room/Bed: Stress Nurse: Ruby Carson RN BMI: 34.20 Baseline Rhythm: Sinus Rhythm Comment: occ PVC Indications: Dyspnea on exertion with new onset 4/10 dull right lower chest discomfort. Medical History Medical History: HTN. HLD. Prediabetes. Hx Smoking. Anxiety. ETOH. Post concussion Syndrome. Neuropat hy. Sleep apnea. Cardiac Medications: ASA. Co-Q 10. Magnesium Oxide. Lisinopril - Hydrochlorothiazide. Metformin. Meto prolol Succinate. Pravastatin. , Allergies: Zonisamide. Cardiac Risk Factors: HTN, Hyperlipidemia, FHX of CAD, Diabetes (non-insulin), Smoking (former) Previous Cardiac Procedures: None. Pretest Chest Pain Characteristics: None. Exercise History: Physically active Physical Disabilities: None. Lung Sounds: Clear to auscultation Heart Sounds: Regular Stress Test Details Test: Exercise stress testing was performed using a Aren protocol. Rest Stress HR Resting HR Supine: 70 bpm Max Heart Rate (APMHR): 153 bpm Resting HR Standin bpm Target HR (85% APMHR): 130 bpm Max HR Achieved: 154 bpm % of APMHR: 100 Recovery HR: 92 bpm HR response to stress: Normal HR response to stress BP Resting BP Supine: 160/88 mmHg Resting BP Standin/90 mmHg Max BP: 218/68 mmHg Recovery BP: 174/80 mmHg BP response to stress: Normal blood pressure response to stress. ECG Resting ECG: Sinus Rhythm Ectopy: occasional PVC Stress ECG: Sinus Tachycardia ST Change: no significant ST segment changes Arrhythmia: occasional PVC Recovery ECG: Sinus Rhythm Recovery ST Change: no significant ST segment changes Recovery Arrhythmia: PVCs Clinical Reason for Termination: Fatigue Exercise duration: 12 min12 sec Highest Stage Reached: Stage 5: 5.0 mph at 18% grade. Exercise capacity: 13.62 METs Stress ECG Conclusion 1. Resting electrocardiogram shows left anterior fascicular block 2. The patient exercised on the Aren protocol. He completed a workload of 13.62 METS 3. Normal heart rate response to exercise. The patient achieved 100% of predicted heart rate for age 4. Hypertensive blood pressure response to exercise 5. Sporadic PVCs were seen 6. Electrocardiographically the test was negative for myocardial ischemia 7. Ramirez treadmill score is 12, low probability Stress Test Summary STAGE Time (mins) Speed (mph) Grade (%) HR BP SYMPTOMS METS Supine 70 160/88 Standing 77 154/90 1 3 1.7 10 103 162/86 4.6 2 6 2.5 12 121 174/78 7 3 9 3.4 14 130 190/72 10.2 4 12 4.2 16 150 SOB 12.9 1 min recovery 145 218/68 3 min recovery 104 210/70 6 min recovery 92 174/80
== END 2020-06-02 01:01 ==
PROVIDERS: PCP Family Medicine; Visit Provider Nurse Practitioner Family
DX: R07.9 Chest pain, unspecified (principal); R06.09 Other forms of dyspnea; I10 Essential (primary) hypertension; E78.5 Hyperlipidemia, unspecified; Z82.49 Family history of ischemic heart disease and other diseases of the circulatory system; Z87.891 Personal history of nicotine dependence; E11.9 Type 2 diabetes mellitus without complications
CPT/HCPCS: 93016; 93018; 93017

== ENCOUNTER 2020-06-22 04:13 | Outpatient (CLI) | payer MEDICARE, SELFPAY ==
[2020-06-24 17:23] LABS: SARS-CoV-2 RNA Not Detected (NotDetected); SARS-CoV-2 RNA Source Nasal/Nares
== END 2020-06-22 04:33 ==
PROVIDERS: PCP Family Medicine; Visit Provider Family Medicine
DX: Z11.59 Encounter for screening for other viral diseases (principal); Z01.811 Encounter for preprocedural respiratory examination
CPT/HCPCS: U0003

== ENCOUNTER 2020-06-25 05:16 | Outpatient (CLI) | payer MEDICARE, SELFPAY ==
[2020-06-25] MEDS: Albuterol HFA 18 GM 200 PUFF INH IH (09:24)
[2020-06-25] MEDS: Inhaler, Assist Device 1 EACH MC (09:25)
--- NOTE | 2020-06-29 08:19 | W.PFT ---
Date of service: 06/25/20 Time of Service: 08:10 Pulmonary Function Test Result Interpretation Spirometry: No evidence of obstructive airways disease, no bronchodilator response. Somewhat suboptimal patient effort for prebronchodilator testing Lung Volumes: No evidence of restriction Diffusion Capacity: Normal Airway Pressure: Normal Impression Normal pulmonary function study. Somewhat suboptimal patient effort for prebronchodilator Spirometry Clinical Correlation therefore is recommended.
== END 2020-06-25 05:36 ==
PROVIDERS: PCP Family Medicine; Visit Provider Nurse Practitioner Family
DX: R06.02 Shortness of breath (principal)
CPT/HCPCS: 94060; 94726; 94729

== ENCOUNTER 2020-08-04 08:10 | Outpatient (CLI) | payer MEDICARE, SELFPAY ==
[2020-08-05 14:50] LABS: COVID-19 RT-PCR UVMMC Result Negative (Negative)
== END 2020-08-04 08:30 ==
PROVIDERS: PCP Family Medicine; Visit Provider Nurse Practitioner Family
DX: Z20.828 Contact with and (suspected) exposure to other viral communicable diseases (principal)
CPT/HCPCS: U0003

== ENCOUNTER → 2020-08-20 12:31 | Outpatient (BNVA) | payer MEDICARE, SELFPAY | PROVIDERS: PCP Family Medicine; Referring Provider Family Medicine; Visit Provider Internal Medicine Cardiovascular Disease | DX: R06.02 Shortness of breath (principal); R07.89 Other chest pain; I10 Essential (primary) hypertension; F41.9 Anxiety disorder, unspecified; Z87.820 Personal history of traumatic brain injury | CPT/HCPCS: 99203; 99214 ==

== ENCOUNTER 2021-05-31 09:46 | Outpatient (CLI) | payer MEDICARE, SELFPAY ==
[2021-05-31 12:33] LABS: Microalb ug/mg Crea 5.9 ug/mg Cr
[2021-05-31 12:45] LABS: ALT 54 U/L (16-63); AST 27 U/L (15-37); Albumin 4.1 g/dL (3.4-5.0); Alkaline Phosphatase 54 U/L (46-116); Anion Gap 11.7 mmol/L (3-11); BUN 23 mg/dL (7-18); Bilirubin, Total 0.3 mg/dL (0.2-1.0); CO2 26.3 mmol/L (21.0-32.0); CREATININE 1.1 mg/dL (0.70-1.30); Calculated LDL 72 mg/dL (<100); Chloride 104 mmol/L (98-107); Cholesterol 173 mg/dL (<200); Glucose 109 mg/dL (74-106); HDL Cholesterol 33 mg/dL (40-60); Potassium 4.8 mmol/L (3.5-5.1); Sodium 142 mmol/L (136-145); TSH 2.56 uIU/mL (0.36-3.74); Total Protein 7.4 g/dL (6.4-8.2); Triglyceride 342 mg/dL (<150)
[2021-05-31 12:55] LABS: Hemoglobin A1C 6.8 % (<5.7)
[2021-05-31 22:33] LABS: PSA, Screening 0.8 ng/mL (0.0-4.5)
== END 2021-05-31 09:47 | disposition home or self-care (01) ==
LOC: LOS 09:47
PROVIDERS: PCP Family Medicine; Referring Provider Family Medicine; Visit Provider Family Medicine
DX: E03.9 Hypothyroidism, unspecified (principal); E11.9 Type 2 diabetes mellitus without complications; N40.0 Benign prostatic hyperplasia without lower urinary tract symptoms; Z12.5 Encounter for screening for malignant neoplasm of prostate
CPT/HCPCS: 36415; 80053; 80061; 84153; 82043; 82570; 83036; 84443

== ENCOUNTER 2021-09-14 02:01 | Outpatient (CLI) | payer MEDICARE, SELFPAY ==
[2021-09-14 14:16] LABS: Hemoglobin A1C 6.8 % (<5.7)
[2021-09-14 15:34] LABS: Anion Gap 8.6 mmol/L (3-11); BUN 20 mg/dL (7-18); CO2 29.4 mmol/L (21.0-32.0); CREATININE 1.2 mg/dL (0.70-1.30); Calcium 9.2 mg/dL (8.5-10.1); Chloride 100 mmol/L (98-107); Glucose 117 mg/dL (74-106); Potassium 4.6 mmol/L (3.5-5.1); Sodium 138 mmol/L (136-145)
== END 2021-09-14 02:02 | disposition home or self-care (01) ==
LOC: LBO 02:01
PROVIDERS: PCP Family Medicine; Visit Provider Family Medicine
DX: E11.9 Type 2 diabetes mellitus without complications (principal)
CPT/HCPCS: 36415; 80048; 83036

== ENCOUNTER 2022-01-10 14:54 | Outpatient (REF) | payer MEDICARE, SELFPAY ==
[2022-01-10 15:40] LABS: Uric Acid 7.6 mg/dL (3.5-7.2)
== END 2022-01-10 14:55 | disposition home or self-care (01) ==
LOC: LBN 14:54
PROVIDERS: PCP Nurse Practitioner Family; Visit Provider Nurse Practitioner Family
DX: M25.562 Pain in left knee (principal)
CPT/HCPCS: 84550

== ENCOUNTER → 2022-01-13 01:52 | Outpatient (CLI) | payer MEDICARE, SELFPAY ==
--- NOTE | 2022-01-13 06:45 | DI.US_ITS ---
Exam(s) US LOWER EXTREMITY VENOUS LT EXAM: US LOWER EXTREMITY VENOUS LT CLINICAL HISTORY: new left leg ededma/pain, ? DVT,r60.0 TECHNIQUE: Grayscale, color, and doppler imaging of the deep venous system of the left lower extremi ty was performed. COMPARISON: No exams were available for comparison FINDINGS: There is no evidence of intraluminal thrombus and there is normal compression and augmentation demons trated within the common femoral vein, femoral vein, and popliteal vein. In the ipsilateral calf the interrogated veins also exhibit normal compression/ augmentation properti es. The ipsilateral saphenofemoral junction is patent. IMPRESSION: 1. No evidence of DVT in the left lower extremity. DATA REPOSITORY:
== END ==
PROVIDERS: PCP Nurse Practitioner Family; Visit Provider Family Medicine
DX: R60.0 Localized edema (principal); M79.605 Pain in left leg
CPT/HCPCS: 93971

== ENCOUNTER 2022-02-16 14:46 | Outpatient (REF) | payer MEDICARE, SELFPAY ==
--- NOTE | 2022-02-16 14:15 | LIPBX_PTH ---
PATIENT: Jeff Mullins LOC: [facility] U#:[id number] AGE/SX: 66/M ROOM: RE02/16/[address]: Anselmo Champagne MD : [id number] BED: DIS: 02/16/2022 SPEC #: [id number] RECD: 02/16/22 17:09 STATUS: NINA REBharat #: [id number] CAROLE: 02/16/22 14:[address]: Anselmo Champagne DEPT: Surgical Specimen RECD BY: Rosa Elena Cordon ENTERED: 02/16/22 17:10 SP TYPE: LIPBX OTHR DR: Sgiifredo Ray, CONCEPCIÓN Tissues: 1 - LIP BIOPSY/RESECTION Procedures: GROSS AND MICRO LEVEL 4 Comments: [id number]
== END 2022-02-16 14:47 | disposition home or self-care (01) ==
LOC: LBN 14:46
PROVIDERS: PCP Nurse Practitioner Family; Visit Provider Otolaryngology
DX: D10.0 Benign neoplasm of lip (principal)
CPT/HCPCS: 88305

== ENCOUNTER 2022-03-04 14:09 | Emergency (ER) | payer MEDICARE, SELFPAY ==
[2022-03-04 14:13] VITALS: BP 151/77; PULSE 65; RESP 14; TEMP 36.8; O2SAT 97
--- NOTE | 2022-03-04 15:06 | DI.CT_ITS ---
Exam(s) CT ABDOMEN PELVIS WO EXAM: CT ABDOMEN PELVIS WO CLINICAL HISTORY: LLQ pain, diarrhea, concern for diverticulitis. TECHNIQUE: Imaging Protocol: Axial computed tomography images with coronal and sagittal reformatted images were created and reviewed. COMPARISON: CT ABD PELVIS WITH CONTRAST from 07/07/2016 FINDINGS: ABDOMEN: Lung Bases: Normal where visualized. Liver: Fatty infiltration. No measurable mass. Gallbladder and biliary tract: No radiodense calculus or biliary ductal dilation. Pancreas: Normal density, no abnormal calcifications or inflammatory process. Spleen: Normal. Kidneys: Normal size, contour and axis.No radiodense stones or obstructive uropathy. There is again s een a left renal cyst. No follow-up is recommended. Adrenal glands: No mass is seen. Lymph nodes: Within normal limits. Abdominal Aorta: Abdominal portion non-dilated. Atherosclerosis is present. PELVIS: Bladder:Symmetric distention, no gross wall thickening. Bowel: No evidence of obstruction. There is bowel wall thickening seen in the proximal sigmoid colon . Associated diverticula are noted. There is also inflammatory changes around this segment of bowel . Findings are most suggestive of acute diverticulitis. No abscess or free air. No evidence of maite endicitis. Peritoneal cavity: No ascites, collection or mesenteric inflammatory response. No free air. Reproductive organs: Unremarkable as visualized. Bones: Within normal limits. Soft Tissues: Within normal limits. IMPRESSION: 1. Acute proximal sigmoid diverticulitis. No abscess or free air. A follow-up examination may be co nsidered to document resolution. 2. Results of this exam have been verbally communicated with provider. RADIATION DOSE DELIVERED: 1,147.9mGy.cm Total DLP DATA REPOSITORY: All CT scans at this facility are submitted to the National Radiology Data Registry (NRDR) Dose Index Registry (DIR) with the [employer] (ACR). RADIATION OPTIMIZATION: All CT scans at this facility use at least one of these dose optimization te chniques: automated exposure control; mA and/or kV adjustment per patient size (includes targeted exa ms where dose is matched to clinical indication); or iterative reconstruction.
--- NOTE | 2022-03-04 15:25 | W.ED.GENAD ---
Discharge Plan Disposition Patient Disposition: STILL A PATIENT Condition: Stable Discharge Details Chief Complaint: Abd Prob Primary Care Provider: Sigifredo Ray ED Provider: James Bowie Home Meds and New Rx's Prescriptions: No Action levothyroxine 88 mcg tablet 88 mcg PO DAILY Qty: 90 3RF Rx Instructions: /take one tablet daily mometasone 0.1 % cream 1 applic TP DAILY PRN (Reason: skin irritation) Qty: 15 2RF Rx Instructions: local application in thin layer on ear once a day as needed aspirin [Aspirin Low-Strength] 81 MG tablet,chewable 81 mg PO DAILY multivitamin 1 EACH capsule 1 cap PO BID riboflavin (vitamin B2) 100 MG tablet 2 cap PO BID Lactobacillus acidophilus 1 EACH capsule 2 cap PO DAILY Bioplasme 4 cap PO DAILY alpha lipoic acid 300 MG capsule 600 mg PO DAILY naproxen sodium 550 MG tablet 550 mg PO BID PRN cholecalciferol (vitamin D3) [Vitamin D3] 1,000 UNIT capsule 1,000 unit PO DAILY duloxetine 60 mg capsule,delayed release(DR/EC) 60 mg PO DAILY Qty: 90 4RF coenzyme Q10 100 mg capsule 400 mg PO DAILY omega-3 fatty acids-fish oil 300-1,000 mg capsule 3 cap PO DAILY Label Comments: 1000 units EPA ascorbic acid (vitamin C) 1,000 mg tablet 2 g PO DAILY calcium carbonate 600 mg calcium (1,500 mg) tablet 1,800 mg PO DAILY magnesium glycinate 100 mg tablet 200 mg PO DAILY Qty: 7 0RF Rx Instructions: otc gabapentin 300 mg capsule 300 mg PO BID Qty: 180 3RF hydrochlorothiazide 25 mg tablet 25 mg PO QAM Qty: 90 3RF lisinopril 40 mg tablet 40 mg PO DAILY Qty: 90 3RF metoprolol succinate 50 mg tablet extended release 24 hr 50 mg PO DAILY Qty: 90 3RF pravastatin 40 mg tablet 40 mg PO DAILY Qty: 90 3RF metformin 500 mg tablet 500 mg PO DAILY Qty: 90 3RF Medical Decision Making 66-year-old male presents with left lower abdominal pain over the past several days, associate with diarrhea. Tender on examination without guarding or rebounding, denies urinary symptoms denies back pain. Generally nontoxic well-hydrated. Patient does not want any medication for pain or nausea at this time. Clinical suspicion for diverticulitis versus colitis versus less likely kidney stone versus unlikely pyelonephritis. Screening labs imaging disposition pending results. Consider home with p.o. antibiotics if in fact diverticulitis uncomplicated. 15: 59 patient resting comfortably nontoxic awaiting labs and imaging. HPI General Date/Time Provider Initiated Documentation: 03/04/22 14:43. HPI Narrative: 66-year-old male history of diabetes hypertension hyperlipidemia, presents with left lower quadrant abdominal discomfort and diarrhea over the past several days, history of appendectomy, denies urinary symptoms denies back pain. Related Data Home Medications Medication Instructions Recorded Confirmed aspirin 81 mg chewable tablet 81 mg PO DAILY 12/21/12 03/04/22 (Aspirin Low-Strength) multivitamin 1 cap PO BID 12/21/12 03/04/22 Bioplasme 4 cap PO DAILY 01/26/17 03/04/22 Lactobacillus acidophilus 100 2 cap PO DAILY 01/26/17 03/04/22 million cell capsule alpha lipoic acid 300 mg capsule 600 mg PO DAILY 01/26/17 03/04/22 naproxen sodium 550 mg tablet 550 mg PO BID PRN 01/26/17 03/04/22 riboflavin (vitamin B2) 100 mg 2 cap PO BID 01/26/17 03/04/22 tablet cholecalciferol (vitamin D3) 25 1,000 unit PO DAILY 02/21/17 03/04/22 mcg (1,000 unit) capsule (Vitamin D3) duloxetine 60 mg capsule,delayed 60 mg PO DAILY #90 caps 09/05/18 03/04/22 release coenzyme Q10 100 mg capsule 400 mg PO DAILY 09/18/18 03/04/22 omega-3 fatty acids-fish oil 300 3 cap PO DAILY 09/18/18 03/04/22 mg-1,000 mg capsule mometasone 0.1 % topical cream 1 applic topical DAILY PRN skin 01/08/20 03/04/22 irritation #15 grams ascorbic acid (vitamin C) 1,000 mg 2 g PO DAILY 11/27/20 03/04/22 tablet calcium carbonate 600 mg calcium 1,800 mg PO DAILY 11/27/20 03/04/22 (1,500 mg) tablet magnesium glycinate 100 mg tablet 200 mg PO DAILY #7 tabs 11/27/20 03/04/22 gabapentin 300 mg capsule 300 mg PO BID #180 caps 08/16/21 03/04/22 hydrochlorothiazide 25 mg tablet 25 mg PO QAM #90 tabs 08/16/21 03/04/22 lisinopril 40 mg tablet 40 mg PO DAILY #90 tabs 08/16/21 03/04/22 metoprolol succinate 50 mg 50 mg PO DAILY #90 tabs 08/16/21 03/04/22 tablet,extended release 24 hr pravastatin 40 mg tablet 40 mg PO DAILY #90 tabs 08/16/21 03/04/22 metformin 500 mg tablet 500 mg PO DAILY #90 tabs 08/20/21 03/04/22 levothyroxine 88 mcg tablet 88 mcg PO DAILY #90 tabs 09/20/21 03/04/22 Previous Rx's Medication Instructions Recorded duloxetine 60 mg capsule,delayed 60 mg PO DAILY #90 caps 09/05/18 release mometasone 0.1 % topical cream 1 applic topical DAILY PRN skin 01/08/20 irritation #15 grams magnesium glycinate 100 mg tablet 200 mg PO DAILY #7 tabs 11/27/20 gabapentin 300 mg capsule 300 mg PO BID #180 caps 08/16/21 hydrochlorothiazide 25 mg tablet 25 mg PO QAM #90 tabs 08/16/21 lisinopril 40 mg tablet 40 mg PO DAILY #90 tabs 08/16/21 metoprolol succinate 50 mg 50 mg PO DAILY #90 tabs 08/16/21 tablet,extended release 24 hr pravastatin 40 mg tablet 40 mg PO DAILY #90 tabs 08/16/21 metformin 500 mg tablet 500 mg PO DAILY #90 tabs 08/20/21 levothyroxine 88 mcg tablet 88 mcg PO DAILY #90 tabs 09/20/21 Allergies Allergy/AdvReac Type Severity Reaction Status Date / Time zonisamide AdvReac Mild Verified 03/04/22 14:16 GRASS Allergy Unknown Uncoded 03/04/22 14:16 MOLDS AND SMUTS Allergy Unknown Uncoded 03/04/22 14:16 General Stated Complaint: Abd Prob RADHA: 4 Review of Systems Narrative: Review of Systems Constitutional: negative Eyes: negative ENT: negative Cardiovascular: negative Respiratory: negative Gastrointestinal: Abdominal pain, diarrhea : negative Musculoskeletal: negative Skin: negative Neurologic: negative Psych: negative PFSH All Active Problems Lip lesion (Acute) COVID-19 (Acute) 12/01/21, URI symptoms Type 2 diabetes mellitus with diabetic neuropathy, unspecified (Acute) Atypical chest pain (Acute) 2020-negative ETT Diabetes mellitus (Chronic) Sensorineural hearing loss, bilateral (Chronic 07/16/15) Sciatica (Chronic 07/06/01) Postconcussion syndrome (Chronic 12/25/13) managed at [facility] Hypothyroidism (Chronic 12/24/12) Hyperlipidemia (Chronic 12/24/12) Essential hypertension (Chronic 08/30/13) Anxiety (Chronic 12/20/11) s/p concussion Allergic rhinitis (Chronic) Medical History Acute appendicitis Excessive drinking alcohol Prediabetes Smoker hist tobacco abuse Surgical History Appendectomy (07/07/16) History of carpal tunnel surgery bilat Repair, Tendon or Muscle (~06/2010) repair of right achilles tendon Tonsillectomy and adenoidectomy (~10/1960) Tooth extraction 07/2014; TOOTH EXTRACTION Family History Mother Essential hypertension Breast cancer Father Essential hypertension Heart disease MURMUR Hyperlipidemia Sister Blood glucose abnormal Sister Graves' disease Essential hypertension Hyperlipidemia Sister Heart disease MURMUR Sister Heart disease MURMUR Brother Stroke Maternal Grandfather No problems noted. Paternal Grandfather Heart disease Maternal Grandmother No problems noted. Paternal Grandmother Heart disease Son Essential hypertension Daughter No problems noted. Maternal Uncle Leukemia Social History Smoking/Tobacco Use Status: Former Tobacco Use Quit Date: 08/07/13 Tobacco: How many years used: 10 Second Hand Exposure: Yes Smoking risk assessment performed?: Yes Alcohol Intake: current Alcohol Intake frequency: 0-2 drinks per day Alcohol type: beer and wine Drug use: Daily Substance use type: marijuana Caregiver/Support person: No Household members: spouse Housing: house Communication Needs: Hard of Hearing Do you need help understanding health information?: Rarely Pets and animals: Yes Pets and animals: cat(s) Sexually active: Yes Do you think of yourself as: straight/heterosexual Current gender identity: female What is your relationship status?: How often do you talk on the phone with friends or family?: twice per week How often do you get together with friends or relatives?: once per week How often do you attend sikhism or buddhist services?: decline to answer Do you belong to any clubs or organized social groups?: no Panel score (0-1 are the most socially isolated patients): 2 What type of physical activity do you participate in: walking Duration: 45-60 minutes/day Frequency: daily Na/Oriental Orthodox: None Special na needs: No Seatbelt use: always Helmet use: Yes Helmet use: always Drive intox or ride w/intox taxicab driver: No Do you feel safe at home: Yes Do you feel safe in your relationship?: Yes Exam Narrative Exam Narrative: Physical Examination General: alert, awake, cooperative, resting comfortably, no acute distress HEENT: normocephalic, atraumatic; PERRL, EOM intact, conjunctiva normal; no nasal discharge; moist mucous membranes, oral and pharyngeal mucosa normal, tolerating secretions Neck: supple, trachea midline; full ROM Chest: normal to inspection Respiratory: normal respiratory effort, speaking in full sentences, clear to auscultation, no wheezing, rales or rhonchi Cardiac: regular rate, regular rhythm, S1S2 intact, no murmurs rubs or gallops GI: abdomen soft, Left lower quadrant abdominal pain nonperitoneal, non-distended; no palpable mass or hepatosplenomegaly Skin: no lesions, rashes or trauma appreciated Neuro: AAOx3, normal speech, moving all extremities Extremities: Psych: Appropriate mood and affect Course Vital Signs Vital signs: Vital Signs Temperature 36.8 C 03/04/22 14:13 Pulse 65 03/04/22 14:13 Respiratory Rate 14 03/04/22 14:13 Blood Pressure 151/77 H 03/04/22 14:13 Pulse Oximetry 97 03/04/22 14:13 Temperature 36.8 C 03/04/22 14:13 Temperature Source Temporal Artery Scan 03/04/22 14:13 Pulse 65 03/04/22 14:13 Respiratory Rate 14 03/04/22 14:13 Blood Pressure 151/77 H 03/04/22 14:13 Blood Pressure Position Sitting 03/04/22 14:13 Pulse Oximetry 97 03/04/22 14:13 Oxygen Delivery Method Room Air 03/04/22 14:13 Oxygen Flow Rate 0 03/04/22 14:13 Pain Level 7 03/04/22 14:13
[2022-03-04] MEDS: Amoxicillin 875/Clav. 125 TAB PO (16:28)
== END 2022-03-04 16:28 | disposition home or self-care (01) ==
PROVIDERS: Emergency Provider Student in an Organized Health Care Education/Training Program; PCP Nurse Practitioner Family
DX: K57.92 Diverticulitis of intestine, part unspecified, without perforation or abscess without bleeding (principal); I10 Essential (primary) hypertension; E11.9 Type 2 diabetes mellitus without complications; Z79.84 Long term (current) use of oral hypoglycemic drugs; Z90.49 Acquired absence of other specified parts of digestive tract; Z87.891 Personal history of nicotine dependence; Z77.22 Contact with and (suspected) exposure to environmental tobacco smoke (acute) (chronic)
CPT/HCPCS: 80053; 96360; 99284; 74176; 85025

== ENCOUNTER → 2022-03-18 00:16 | Outpatient (CLI) | payer MEDICARE, SELFPAY ==
--- NOTE | 2022-03-18 07:00 | DI.CT_ITS ---
Exam(s) CT ABDOMEN PELVIS WO EXAM: CT ABDOMEN PELVIS WO CLINICAL HISTORY: F/U DIVERTICULITIS, K57.92. TECHNIQUE: Imaging Protocol: Axial computed tomography images with coronal and sagittal reformatted images were created and reviewed. Oral: yes / COMPARISON: CT CT ABDOMEN PELVIS WO from 03/04/2022 FINDINGS: ABDOMEN: Lung Bases: Normal where visualized. Liver: Severe hepatic steatosis. No measurable mass. Gallbladder and biliary tract: No radiodense calculus or dilation. Pancreas: Normal density, no abnormal calcifications or inflammatory process. Spleen: Normal. Kidneys: Normal size, contour and axis. No radiodense stones or obstructive uropathy. Left renal cyst . No masses seen. Adrenal glands: No masses seen. Lymph nodes: Within normal limits. Abdominal Aorta: Abdominal portion non-dilated. Mild calcification. PELVIS: Bladder: Symmetric distention, no gross wall thickening. Bowel: Status post appendectomy. Diverticulosis lower descending and proximal sigmoid colon. Resolu tion of previously noted diverticulitis. No obstruction or bowel wall thickening. Peritoneal cavity: No ascites, collection or mesenteric inflammatory response. Reproductive organs: Within normal limits. Bones: Degenerative changes. IMPRESSION: Interval clearing of previously noted diverticulitis. RADIATION DOSE DELIVERED: 1,117.8mGy.cm Total DLP DATA REPOSITORY: All CT scans at this facility are submitted to the National Radiology Data Registry (NRDR) Dose Index Registry (DIR) with the [employer] ([employer]). RADIATION OPTIMIZATION: All CT scans at this facility use at least one of these dose optimization te chniques: automated exposure control; mA and/or kV adjustment per patient size (includes targeted exa ms where dose is matched to clinical indication); or iterative reconstruction.
[2022-03-18] MEDS: Barium Sulfate 2% W/V-Berry Smoothie 450 ML BTL 900 ML PO (09:38)
== END ==
PROVIDERS: PCP Family Medicine; Visit Provider Nurse Practitioner Family
DX: K57.92 Diverticulitis of intestine, part unspecified, without perforation or abscess without bleeding (principal)
CPT/HCPCS: 74176

== ENCOUNTER 2022-06-07 03:59 | Outpatient (CLI) | payer MEDICARE, SELFPAY ==
[2022-06-07 14:18] LABS: COMMENT (LAB VIEW ONLY) 86.59 mg/dL; Microalb ug/mg Crea 1.8 ug/mg Cr
[2022-06-07 14:28] LABS: Anion Gap 7.4 mmol/L (3-11); BUN 20 mg/dL (7-18); CO2 29.6 mmol/L (21.0-32.0); CREATININE 1.2 mg/dL (0.70-1.30); Calcium 9.5 mg/dL (8.5-10.1); Chloride 100 mmol/L (98-107); Estimated GFR 65.46 (mL/min/1.73m2); Glucose 131 mg/dL (74-106); Potassium 3.9 mmol/L (3.5-5.1); Sodium 137 mmol/L (136-145)
== END 2022-06-07 04:00 | disposition home or self-care (01) ==
PROVIDERS: PCP Family Medicine; Visit Provider Family Medicine
DX: E11.40 Type 2 diabetes mellitus with diabetic neuropathy, unspecified (principal); E03.9 Hypothyroidism, unspecified
CPT/HCPCS: 36415; 80048; 82043; 82570; 84443

== ENCOUNTER → 2022-07-14 15:10 | Outpatient (CLI) | payer MEDICARE, SELFPAY ==
--- NOTE | 2022-07-14 14:15 | DI.RAD_ITS ---
Exam(s) XR FOOT LT COMPLETE EXAM: XR FOOT LT COMPLETE CLINICAL HISTORY: Red/swollen foot/signif neuropathy, lt foot pain, M79.672. TECHNIQUE: 2D digital imaging was performed of the left foot. Three images were obtained. AP, obli que and lateral views were obtained. COMPARISON: No exams were available for comparison FINDINGS: BONES: No acute fracture is present. No bony destructive lesion is seen. JOINTS: No dislocation present. Mild degenerative changes are present. SOFT TISSUE: There is diffuse soft tissue swelling of the foot. Vascular calcifications are present. IMPRESSION: No acute fracture or dislocation. DATA REPOSITORY: RADIATION DOSE DELIVERED:
--- NOTE | 2022-07-14 15:15 | DI.US_ITS ---
Exam(s) US LOWER EXTREMITY VENOUS LT EXAM: US LOWER EXTREMITY VENOUS LT CLINICAL HISTORY: Acute swelling/discoloration/neg xr, lt foot pain, M79.672 TECHNIQUE: Left lower extremity venous ultrasound performed using grayscale, color-flow, and spectra l Doppler analysis. COMPARISON: US US LOWER EXTREMITY VENOUS LT from 01/13/2022 FINDINGS: The left common femoral, femoral and popliteal veins demonstrate normal compressibility, augmentation , and color Doppler. The posterior tibial veins are patent. There is thrombus seen in the left peron eal vein approximately 2.2 cm in length. It does appear to be calcific and may be chronic. The saph enofemoral junction is unremarkable. There is no evidence of a Yuen cyst. The soft tissues are unr emarkable. IMPRESSION: 1. 2.2 cm thrombus in the left peroneal vein. It is partially calcific and may be chronic. 2. No other thrombus is seen in the deep veins of the left lower extremity. DATA REPOSITORY:
== END ==
PROVIDERS: PCP Family Medicine; Visit Provider Nurse Practitioner Family
DX: I82.452 Acute embolism and thrombosis of left peroneal vein (principal)
CPT/HCPCS: 73630; 93971

== ENCOUNTER 2022-07-17 11:23 | Emergency (ER) | payer MEDICARE, SELFPAY ==
[2022-07-17 11:27] VITALS: BP 135/97; PULSE 87; RESP 18; TEMP 37; O2SAT 98
--- NOTE | 2022-07-17 12:00 | DI.RAD_ITS ---
Exam(s) XR KNEE LT 3V AP,LAT,CRISTIANA EXAM: XR KNEE LT 3V AP,LAT,CRISTIANA CLINICAL HISTORY: pain. TECHNIQUE: 2D digital imaging was performed of the left knee. Four images were obtained. AP, later al and PA tunnel views were obtained. COMPARISON: CR XR CHEST 2V PA LATERAL from 07/15/2019 FINDINGS: BONES: No acute fracture is present. No bony destructive lesion is seen. JOINTS: The knee is normally aligned. There may be a small joint effusion. SOFT TISSUE: Normal. IMPRESSION: 1. No acute fracture or dislocation. 2. Small joint effusion. DATA REPOSITORY: RADIATION DOSE DELIVERED:
--- NOTE | 2022-07-17 12:08 | W.ED.GENAD ---
Discharge Plan Disposition Patient Disposition: Home Condition: Stable Discharge Details Clinical Impression: Left knee pain Primary Care Provider: Nany Mao ED Provider: Saul Lopez Home Meds and New Rx's Prescriptions: Continued B-100 Complex 100 mg tablet extended release PO DAILY metformin 500 mg tablet 500 mg PO BID Qty: 180 3RF mometasone 0.1 % cream 1 applic TP DAILY PRN (Reason: skin irritation) Qty: 15 2RF Rx Instructions: local application in thin layer on ear once a day as needed aspirin [Aspirin Low-Strength] 81 MG tablet,chewable 81 mg PO DAILY multivitamin 1 EACH capsule 1 cap PO BID riboflavin (vitamin B2) 100 MG tablet 2 cap PO BID Lactobacillus acidophilus 1 EACH capsule 2 cap PO DAILY Bioplasme 4 cap PO DAILY alpha lipoic acid 300 MG capsule 600 mg PO DAILY naproxen sodium 550 MG tablet 550 mg PO BID PRN cholecalciferol (vitamin D3) [Vitamin D3] 1,000 UNIT capsule 1,000 unit PO DAILY duloxetine 60 mg capsule,delayed release(DR/EC) 60 mg PO DAILY Qty: 90 4RF coenzyme Q10 100 mg capsule 400 mg PO DAILY omega-3 fatty acids-fish oil 300-1,000 mg capsule 3 cap PO DAILY Label Comments: 1000 units EPA ascorbic acid (vitamin C) 1,000 mg tablet 2 g PO DAILY calcium carbonate 600 mg calcium (1,500 mg) tablet 1,800 mg PO DAILY magnesium glycinate 100 mg tablet 200 mg PO DAILY Qty: 7 0RF Rx Instructions: otc gabapentin 300 mg capsule 300 mg PO BID Qty: 180 3RF lisinopril 40 mg tablet 40 mg PO DAILY Qty: 90 3RF metoprolol succinate 50 mg tablet extended release 24 hr 50 mg PO DAILY Qty: 90 3RF pravastatin 40 mg tablet 40 mg PO DAILY Qty: 90 3RF hydrochlorothiazide 25 mg tablet 25 mg PO QAM Qty: 90 3RF pantoprazole 40 mg tablet,delayed release (DR/EC) 40 mg PO DAILY Qty: 30 1RF levothyroxine 88 mcg tablet 88 mcg PO DAILY Qty: 90 3RF Rx Instructions: /take one tablet daily apixaban 5 mg tablet 5 mg PO BID Qty: 120 0RF Discharge Instructions Instructions: Knee Pain (ED) Additional Instructions: your xray shows a small joint effusion and you likely have arthritis follow up with your primary care provider within 1-2 weeks if you feel more ill, have severe worsening pain, fevers or difficulty breathing return to the emergency department Medical Decision Making 67 yo male with hx of t2dm, hypothyroidism, who has had left foot and left knee pain for over a week. denies any falls or trauma, no fevers or chills. He saw his pcp and had an xray of his left foot that was negative on 07/14 and also had a dvt study of his left leg and found to have chronic appearing clot in the left peroneal vein. He comes in with continued left knee pain. He has no redness or noticeable swelling of the knee and no warmth to touch of the knee. He has full rom. He has tenderness to the anterior patella, medial and lateral joint lines, intact distal sensation and pulses. Suspect arthritis, will obtain xray, no findings on exam to suggest infectious etiology such as septic joint. Differential Diagnosis Differential Diagnosis: arthritis, strain, sprain Imaging Data Radiologic Study: Attestation: I personally reviewed and interpreted this imaging study as follows: Imaging: X-Ray Radiologist's impression: IMPRESSION: 1. No evidence for acute bony injury. If clinical symptoms persist recommend followup film in 7-10 days. 2. Small joint effusion Sign Out No HPI General Mode of arrival: ambulatory. Date/Time Provider Initiated Documentation: 07/17/22 11:37. Limitations to Documentation: no limitations. Information obtained by: patient. History of Present Illness 67 year old M presents to the emergency department with the chief complaint of left knee pain, described as moderate, Quality is described as aching, Patient started experiencing this week(s) (1) and it has been constant. No relieving factors improve symptom(s), No exacerbating factors reported . Patient notes denies fever/chills. Patient did receive the following treatments prior to arrival, none Related Data Home Medications Medication Instructions Recorded Confirmed aspirin 81 mg chewable tablet 81 mg PO DAILY 12/21/12 07/17/22 (Aspirin Low-Strength) multivitamin 1 cap PO BID 12/21/12 07/17/22 Bioplasme 4 cap PO DAILY 01/26/17 07/17/22 Lactobacillus acidophilus 100 2 cap PO DAILY 01/26/17 07/17/22 million cell capsule alpha lipoic acid 300 mg capsule 600 mg PO DAILY 01/26/17 07/17/22 naproxen sodium 550 mg tablet 550 mg PO BID PRN 01/26/17 07/17/22 riboflavin (vitamin B2) 100 mg 2 cap PO BID 01/26/17 07/17/22 tablet cholecalciferol (vitamin D3) 25 1,000 unit PO DAILY 02/21/17 07/17/22 mcg (1,000 unit) capsule (Vitamin D3) duloxetine 60 mg capsule,delayed 60 mg PO DAILY #90 caps 09/05/18 07/17/22 release coenzyme Q10 100 mg capsule 400 mg PO DAILY 09/18/18 07/17/22 omega-3 fatty acids-fish oil 300 3 cap PO DAILY 09/18/18 07/17/22 mg-1,000 mg capsule mometasone 0.1 % topical cream 1 applic topical DAILY PRN skin 01/08/20 07/17/22 irritation #15 grams ascorbic acid (vitamin C) 1,000 mg 2 g PO DAILY 11/27/20 07/14/22 tablet calcium carbonate 600 mg calcium 1,800 mg PO DAILY 11/27/20 07/17/22 (1,500 mg) tablet magnesium glycinate 100 mg tablet 200 mg PO DAILY #7 tabs 11/27/20 07/17/22 gabapentin 300 mg capsule 300 mg PO BID #180 caps 08/16/21 07/17/22 lisinopril 40 mg tablet 40 mg PO DAILY #90 tabs 08/16/21 07/17/22 metoprolol succinate 50 mg 50 mg PO DAILY #90 tabs 08/16/21 07/17/22 tablet,extended release 24 hr pravastatin 40 mg tablet 40 mg PO DAILY #90 tabs 08/16/21 07/17/22 metformin 500 mg tablet 500 mg PO BID #180 tabs 06/03/22 07/17/22 vit B complex 100 combo no.2 100 tab PO DAILY 06/03/22 07/14/22 mg tablet,extended release (B-100 Complex ER) hydrochlorothiazide 25 mg tablet 25 mg PO QAM #90 tabs 06/09/22 07/17/22 pantoprazole 40 mg tablet,delayed 40 mg PO DAILY #30 tabs 06/20/22 07/17/22 release levothyroxine 88 mcg tablet 88 mcg PO DAILY #90 tabs 07/08/22 07/17/22 apixaban 5 mg tablet 5 mg PO BID #120 tabs 07/15/22 07/17/22 Previous Rx's Medication Instructions Recorded duloxetine 60 mg capsule,delayed 60 mg PO DAILY #90 caps 09/05/18 release mometasone 0.1 % topical cream 1 applic topical DAILY PRN skin 01/08/20 irritation #15 grams magnesium glycinate 100 mg tablet 200 mg PO DAILY #7 tabs 11/27/20 gabapentin 300 mg capsule 300 mg PO BID #180 caps 08/16/21 lisinopril 40 mg tablet 40 mg PO DAILY #90 tabs 08/16/21 metoprolol succinate 50 mg 50 mg PO DAILY #90 tabs 08/16/21 tablet,extended release 24 hr pravastatin 40 mg tablet 40 mg PO DAILY #90 tabs 08/16/21 metformin 500 mg tablet 500 mg PO BID #180 tabs 06/03/22 hydrochlorothiazide 25 mg tablet 25 mg PO QAM #90 tabs 06/09/22 pantoprazole 40 mg tablet,delayed 40 mg PO DAILY #30 tabs 06/20/22 release levothyroxine 88 mcg tablet 88 mcg PO DAILY #90 tabs 07/08/22 apixaban 5 mg tablet 5 mg PO BID #120 tabs 07/15/22 Allergies Allergy/AdvReac Type Severity Reaction Status Date / Time zonisamide AdvReac Mild Verified 07/17/22 11:31 GRASS Allergy Unknown Uncoded 07/17/22 11:31 MOLDS AND SMUTS Allergy Unknown Uncoded 07/17/22 11:31 General Stated Complaint: Vascular RADHA: 3 Review of Systems All systems reviewed & are unremarkable except as noted in HPI and below Constitutional Constitutional: Denies chills and Denies fever(s) Cardiovascular Cardiovascular: Denies chest pain and Denies dyspnea Respiratory Respiratory: Denies cough and Denies dyspnea Gastrointestinal Gastrointestinal: Denies abdominal pain, Denies nausea and Denies vomiting Musculoskeletal Musculoskeletal: Denies joint swelling PFSH All Active Problems (Updated 07/17/22 @ 13:17 by Saul Lopez MD) Left knee pain (Acute) Foot pain, left (Acute) Anxiety (Chronic 12/20/11) s/p concussion Essential hypertension (Chronic 08/30/13) Hyperlipidemia (Chronic 12/24/12) Hypothyroidism (Chronic 12/24/12) Postconcussion syndrome (Chronic 12/25/13) [place] [facility] [place]ensorineural hearing loss, bilateral (Chronic 07/16/15) has hearing aids Type 2 diabetes mellitus with diabetic neuropathy, unspecified (Acute) Medical History (Updated 07/17/22 @ 13:17 by Saul Lopez MD) Allergic rhinitis Atypical chest pain 2020-negative ETT COVID-19 12/01/21, URI symptoms Excessive drinking alcohol History of tobacco use quit 2013 Sciatica (07/06/01) Surgical History (Updated 06/03/22 @ 10:30 by Nany Mao MD) History of carpal tunnel surgery bilat S/P Achilles tendon repair S/P appendectomy S/P carpal tunnel release S/P cubital tunnel release S/P tonsillectomy and adenoidectomy Family History (Updated 06/03/22 @ 10:31 by Nany Mao MD) Mother , age 90 Essential hypertension Breast cancer Father , age 85 Essential hypertension Heart disease MURMUR Hyperlipidemia Sister Blood glucose abnormal Sister Graves' disease Essential hypertension Hyperlipidemia Sister Heart disease MURMUR Sister Heart disease MURMUR Brother Stroke Maternal Grandfather No problems noted. Paternal Grandfather Heart disease Maternal Grandmother No problems noted. Paternal Grandmother Heart disease Son Essential hypertension Daughter No problems noted. Maternal Uncle Leukemia Social History (Updated 06/09/22 @ 08:02 by Cecelia Chavarria) Smoking/Tobacco Use Status: Former Tobacco Use tobacco type: cigarettes and cigars Quit Date: 08/07/13 Tobacco: How many years used: 10 Second Hand Exposure: Yes Smoking risk assessment performed?: Yes Alcohol Intake: current Alcohol Intake frequency: a few times a week Alcohol type: beer, wine and hard liquor Drug use: Occasionally Substance use type: marijuana Caregiver/Support person: No Household members: spouse Housing: house Number of Children: 2 Communication Needs: Hard of Hearing and Corrective Lenses Do you need help understanding health information?: Rarely current occupation: Retired banker at [employer] Pets and animals: Yes Pets and animals: cat(s) Sexually active: Yes Do you think of yourself as: straight/heterosexual Current gender identity: male What is your relationship status?: How often do you talk on the phone with friends or family?: once per week How often do you get together with friends or relatives?: once per week Do you belong to any clubs or organized social groups?: no Panel score (0-1 are the most socially isolated patients): 1 What type of physical activity do you participate in: walking and yoga Duration: 60-90 minutes/day Frequency: 1-2 times per week Na/Evangelical: None Special na needs: No Seatbelt use: always Helmet use: Yes Helmet use: always Drive intox or ride w/intox cmv driver: No Do you feel safe at home: Yes Do you feel safe in your relationship?: Yes Additional Social history: Enjoys being outside; hopes to start travelling more. Exam Const General: no acute distress Orientation: alert HENMT Head: normal to inspection Ears: external ears normal General nose exam: external nose normal Mouth: moist mucous membranes Eyes General: appearance normal, both eyes and all related structures Neck Neck: normal visual inspection Resp Effort & Inspection: normal respiratory effort and able to speak in complete sentences Cardio Rate: regular rate Neuro General: patient alert and patient oriented x3 Extrem General: normal to inspection, full ROM and capillary refill normal Psych Mental Status: mental status grossly normal Course Vital Signs Vital signs: Vital Signs Temperature 37.0 C 07/17/22 11:27 Pulse 87 07/17/22 11:27 Respiratory Rate 18 07/17/22 11:27 Blood Pressure 135/97 H 07/17/22 11:27 Pulse Oximetry 98 07/17/22 11:27 Temperature 37.0 C 07/17/22 11:27 Temperature Source Temporal Artery Scan 07/17/22 11:27 Pulse 87 07/17/22 11:27 Respiratory Rate 18 07/17/22 11:27 Respiratory Effort Non-Labored 07/17/22 11:32 Blood Pressure 135/97 H 07/17/22 11:27 Blood Pressure Position Sitting 07/17/22 11:27 Pulse Oximetry 98 07/17/22 11:27 Oxygen Delivery Method Room Air 07/17/22 11:27 Oxygen Flow Rate 0 07/17/22 11:27
--- NOTE | 2022-07-17 13:05 | DI.VRAD_ITS ---
PROCEDURE INFORMATION: Exam: XR Left Knee Exam date and time: 07/17/2022 12:38 PM Age: 67 years old Clinical indication: Pain; Knee; Left TECHNIQUE: Imaging protocol: Radiologic exam of the Left knee. Views: 3 views. COMPARISON: No relevant comparison study. FINDINGS: Bones/joints: Small joint effusion. No fracture or dislocation. Soft tissues: Unremarkable. Vasculature: Atherosclerotic disease. IMPRESSION: 1. No evidence for acute bony injury. If clinical symptoms persist recommend followup film in 7-10 days. 2. Small joint effusion. Dictated and Authenticated by: Mary Alice Self MD. Ordering:MARK Hughes MD
[2022-07-17 13:26] VITALS: RESP 18
[2022-07-17 13:27] VITALS: BP 154/86; PULSE 86; RESP 18; O2SAT 96
== END 2022-07-17 13:26 | disposition home or self-care (01) ==
PROVIDERS: Emergency Provider Emergency Medicine; PCP Family Medicine
DX: M25.562 Pain in left knee (principal); E11.9 Type 2 diabetes mellitus without complications; Z79.82 Long term (current) use of aspirin; Z86.16 Personal history of COVID-19; Z79.84 Long term (current) use of oral hypoglycemic drugs
CPT/HCPCS: 73562; 99283; 99281

== ENCOUNTER 2023-03-24 16:31 | Emergency (ER) | payer MEDICARE, SELFPAY ==
--- NOTE | 2023-03-24 16:32 | W.ED.GENAD ---
Discharge Plan Disposition Patient Disposition: Home Discharge Details Clinical Impression: Localized swelling of left lower leg Primary Care Provider: Nany Mao ED Provider: Joel Nichols Brewer Meds and New Rx's Prescriptions: New rivaroxaban 15 mg tablet 15 mg PO BID 21 Days Qty: 42 0RF Rx Instructions: must administer with evening meal Continued B-100 Complex 100 mg tablet extended release 1 tab PO DAILY metformin 500 mg tablet 500 mg PO BID Qty: 180 3RF pravastatin 40 mg tablet 40 mg PO DAILY Qty: 90 3RF lisinopril 40 mg tablet 40 mg PO DAILY Qty: 90 3RF gabapentin 300 mg capsule 300 mg PO BID Qty: 180 3RF galcanezumab-gnlm 120 mg/mL pen injector 120 mg subcut QMONTH metoprolol succinate 100 mg tablet extended release 24 hr 100 mg PO DAILY Qty: 90 3RF mometasone 0.1 % cream 1 applic TP DAILY PRN (Reason: skin irritation) Qty: 15 2RF Rx Instructions: local application in thin layer on ear once a day as needed Nurtec ODT 75 mg tablet,disintegrating 75 mg PO ONCE PRN Rx Instructions: as a single dose aspirin [Aspirin Low-Strength] 81 MG tablet,chewable 81 mg PO DAILY multivitamin 1 EACH capsule 1 cap PO BID riboflavin (vitamin B2) 100 MG tablet 2 cap PO BID Lactobacillus acidophilus 1 EACH capsule 2 cap PO DAILY Bioplasme 4 cap PO DAILY alpha lipoic acid 300 MG capsule 600 mg PO DAILY cholecalciferol (vitamin D3) [Vitamin D3] 1,000 UNIT capsule 1,000 unit PO DAILY duloxetine 60 mg capsule,delayed release(DR/EC) 60 mg PO DAILY Qty: 90 4RF coenzyme Q10 100 mg capsule 400 mg PO DAILY omega-3 fatty acids-fish oil 300-1,000 mg capsule 3 cap PO DAILY Patient Comments: 1000 units EPA ascorbic acid (vitamin C) 1,000 mg tablet 2 g PO DAILY calcium carbonate 600 mg calcium (1,500 mg) tablet 1,800 mg PO DAILY hydrochlorothiazide 25 mg tablet 25 mg PO QAM Qty: 90 3RF levothyroxine 88 mcg tablet 88 mcg PO DAILY Qty: 90 3RF Rx Instructions: /take one tablet daily magnesium glycinate 100 mg tablet 200 mg PO TID Rx Instructions: otc Discharge Instructions Additional Instructions: Please read all of the information that accompanies these instructions. You were seen in the emergency department for your leg pain and swelling. Your blood work was concerning for the possibility of a DVT for which an outpatient ultrasound has been ordered next week. You are also starting back on rivaroxaban (Xarelto). Please take 15 mg twice a day for 21 days. Please please schedule an appointment with your primary care provider next week as your dose of rivaroxaban well change after 21 days. Please take your rivaroxaban with food. Please also discuss following up with a steamboat captain after seeing her primary care provider. Please return to the emergency department if chest pain shortness of breath or any other difficulties. Discharge Data Discharge Date/Time-TO BE ENTERED AT DEPARTURE: 03/24/23 18:47 Medical Decision Making This is an overall very well-appearing normothermic and not tachycardic nor hypoxic 68-year-old male with left calf pain swelling and history of DVT concerning for recurrent DVT. No pain out of proportion to suggest necrotizing soft tissue infection. Left foot warm and well perfused so I am not concerned for critical limb ischemia so I did not feel that the patient required a CT angiogram of his lower extremities. Patient is not hypoxic nor tachycardic so my suspicion is low for PE. If his ultrasound is negative and if his D-dimer is negative will defer empiric rivaroxaban however if his ultrasound or DVT is positive we will treat with rivaroxaban. No chest pain to suggest ACS. No reported trauma to ankle so will defer plain films. Compartment soft so I am not concerned for compartment syndrome. No fluctuance to suggest abscess. No significant erythema to suggest cellulitis.No bilateral lower extremity swelling to suggest CHF and no crackles on lungs. No phlegmasia changes. 5:53 PM Negative troponin. Comprehensive metabolic panel with no DANISH mild hyperglycemia no anion gap. Not consistent with DKA. No LFT abnormalities. Venous blood gas with no hypercarbia nor any acidemia. Reassuring negative proBNP. positive D-dimer. CBC with no anemia and mild normocytic anemia and thrombocytosis. 7:24 PM Given positive dimer and concerning clinical exam will treat empirically for DVT with rivaroxaban 15 mg twice daily for 21 days. I have requested that health mechanical unit repairer [place] have the patient seen within the next week by his primary care provider. I have also ordered the patient a left lower extremity duplex study to be performed on Monday, in 3 days. I did advise him to return to the emergency department if he developed shortness of breath or chest pain. I do feel that given his lack of malignancy and now 2 unprovoked DVTs he will likely benefit from an evaluation with hematology and possibly a contralateral right lower extremity ultrasound but will defer this decisions to his primary care provider pending reassessment next week. Patient understood his return indications and he was discharged with an empiric trial of expectant management. Chronic conditions affecting the care of the patient: Mild cognitive impairment borderline diabetes History obtained from an outside historian: N/A External record review: [facility] [place] EMR Diagnostic interpretations performed by me: [Per my independent interpretation chest x-ray shows:] No acute cardiopulmonary process Per my independent interpretation EKG shows: Narrow complex normal sinus rhythm at a rate of 65. Normal axis. Intervals within normal limits. No ST segment abnormalities. No T wave inversions. No prior for comparison. Medications: Rivaroxaban Social determinants of health affecting disposition: N/A Management discussed with: N/A Treatment/interventions considered: Hospitalization but deferred given low suspicion for PE given no chest pain no tachycardia no hypoxia Response to therapies provided: N/A HPI General Date/Time Provider Initiated Documentation: 03/24/23 16:32. HPI Narrative: This is a 68-year-old male with a history of hypertension and prior DVT now in the emergency department in the setting of left ankle swelling. Patient swabbed positive at home for COVID 9 days ago. For the past 1 week he has had left ankle swelling. He reports that his swelling is reminiscent of prior episode of DVT which he had 9 months ago for which he was treated initially with apixaban and subsequently with rivaroxaban. He is not currently on anticoagulants. He took a total of 90 days of rivaroxaban. He never saw hematology. He has no history of malignancy and cancer. He endorses chest congestion but denies shortness of breath. He denies chest pain and history of heart failure. He denies any trauma to his left lower extremity. He has received his COVID vaccines. He denies any trauma to his left lower extremity. He has had no fevers nor chills. Related Data Home Medications Medication Instructions Recorded Confirmed aspirin 81 mg chewable tablet 81 mg PO DAILY 12/21/12 03/24/23 (Aspirin Low-Strength) multivitamin 1 cap PO BID 12/21/12 03/24/23 Bioplasme 4 cap PO DAILY 01/26/17 02/23/23 Lactobacillus acidophilus 100 2 cap PO DAILY 01/26/17 03/24/23 million cell capsule alpha lipoic acid 300 mg capsule 600 mg PO DAILY 01/26/17 03/24/23 riboflavin (vitamin B2) 100 mg 2 cap PO BID 01/26/17 03/24/23 tablet cholecalciferol (vitamin D3) 25 1,000 unit PO DAILY 02/21/17 03/24/23 mcg (1,000 unit) capsule (Vitamin D3) duloxetine 60 mg capsule,delayed 60 mg PO DAILY #90 caps 09/05/18 03/24/23 release coenzyme Q10 100 mg capsule 400 mg PO DAILY 09/18/18 03/24/23 omega-3 fatty acids-fish oil 300 3 cap PO DAILY 09/18/18 03/24/23 mg-1,000 mg capsule mometasone 0.1 % topical cream 1 applic topical DAILY PRN skin 01/08/20 03/24/23 irritation #15 grams ascorbic acid (vitamin C) 1,000 mg 2 g PO DAILY 11/27/20 03/24/23 tablet calcium carbonate 600 mg calcium 1,800 mg PO DAILY 11/27/20 03/24/23 (1,500 mg) tablet metformin 500 mg tablet 500 mg PO BID #180 tabs 06/03/22 03/24/23 vit B complex 100 combo no.2 100 1 tab PO DAILY 06/03/22 03/24/23 mg tablet,extended release (B-100 Complex ER) hydrochlorothiazide 25 mg tablet 25 mg PO QAM #90 tabs 06/09/22 03/24/23 levothyroxine 88 mcg tablet 88 mcg PO DAILY #90 tabs 07/08/22 03/24/23 gabapentin 300 mg capsule 300 mg PO BID #180 caps 09/30/22 03/24/23 lisinopril 40 mg tablet 40 mg PO DAILY #90 tabs 09/30/22 03/24/23 pravastatin 40 mg tablet 40 mg PO DAILY #90 tabs 09/30/22 03/24/23 rimegepant 75 mg disintegrating 75 mg PO ONCE PRN 12/21/22 03/24/23 tablet (Nurtec ODT) galcanezumab-gnlm 120 mg/mL 120 mg subcut QMONTH Headaches 01/03/23 03/24/23 subcutaneous pen injector from concussion metoprolol succinate 100 mg 100 mg PO DAILY #90 tabs 01/03/23 03/24/23 tablet,extended release 24 hr magnesium glycinate 100 mg tablet 200 mg PO TID 03/24/23 03/24/23 rivaroxaban 15 mg tablet 15 mg PO BID 21 days #42 tabs 03/24/23 Previous Rx's Medication Instructions Recorded duloxetine 60 mg capsule,delayed 60 mg PO DAILY #90 caps 09/05/18 release mometasone 0.1 % topical cream 1 applic topical DAILY PRN skin 01/08/20 irritation #15 grams metformin 500 mg tablet 500 mg PO BID #180 tabs 06/03/22 hydrochlorothiazide 25 mg tablet 25 mg PO QAM #90 tabs 06/09/22 levothyroxine 88 mcg tablet 88 mcg PO DAILY #90 tabs 07/08/22 gabapentin 300 mg capsule 300 mg PO BID #180 caps 09/30/22 lisinopril 40 mg tablet 40 mg PO DAILY #90 tabs 09/30/22 pravastatin 40 mg tablet 40 mg PO DAILY #90 tabs 09/30/22 metoprolol succinate 100 mg 100 mg PO DAILY #90 tabs 01/03/23 tablet,extended release 24 hr rivaroxaban 15 mg tablet 15 mg PO BID 21 days #42 tabs 03/24/23 Allergies Allergy/AdvReac Type Severity Reaction Status Date / Time apixaban [From Eliquis] AdvReac Intermediate Swelling/Ed Verified 03/24/23 16:39 caroline zonisamide AdvReac Mild Verified 03/24/23 16:39 General RADHA: 3 PFSH All Active Problems (Updated 03/24/23 @ 18:04 by Joel Nichols MD) Localized swelling of left lower leg (Acute) Anxiety (Chronic 12/20/11) s/p concussion Essential hypertension (Chronic 08/30/13) Hyperlipidemia (Chronic 12/24/12) Hypothyroidism (Chronic 12/24/12) Postconcussion syndrome (Chronic 12/25/13) managed at [facility] [place] Sensorineural hearing loss, bilateral (Chronic 07/16/15) has hearing aids Type 2 diabetes mellitus with diabetic neuropathy, unspecified (Acute) Medical History (Updated 03/24/23 @ 18:04 by Joel Nichols MD) Allergic rhinitis Atypical chest pain 2020-negative ETT COVID-19 12/01/21, URI symptoms Deep venous thrombosis of left peroneal vein (~07/2022) managed with 3 mos of xarelto Excessive drinking alcohol History of tobacco use quit 2013 Sciatica (07/06/01) Surgical History (Updated 06/03/22 @ 10:30 by Nany Mao MD) History of carpal tunnel surgery bilat S/P Achilles tendon repair S/P appendectomy S/P carpal tunnel release S/P cubital tunnel release S/P tonsillectomy and adenoidectomy Family History (Updated 06/03/22 @ 10:31 by Nany Mao MD) Mother , age 90 Essential hypertension Breast cancer Father , age 85 Essential hypertension Heart disease MURMUR Hyperlipidemia Sister Blood glucose abnormal Sister Graves' disease Essential hypertension Hyperlipidemia Sister Heart disease MURMUR Sister Heart disease MURMUR Brother Stroke Maternal Grandfather No problems noted. Paternal Grandfather Heart disease Maternal Grandmother No problems noted. Paternal Grandmother Heart disease Son Essential hypertension Daughter No problems noted. Maternal Uncle Leukemia Social History (Updated 06/09/22 @ 08:02 by Cecelia Chavarria) Smoking/Tobacco Use Status: Former Tobacco Use tobacco type: cigarettes and cigars Quit Date: 08/07/13 Tobacco: How many years used: 10 Second Hand Exposure: Yes Smoking risk assessment performed?: Yes Alcohol Intake: current Alcohol Intake frequency: a few times a week Alcohol type: beer, wine and hard liquor Drug use: Occasionally Substance use type: marijuana Caregiver/Support person: No Household members: spouse Housing: house Number of Children: 2 Communication Needs: Hard of Hearing and Corrective Lenses Do you need help understanding health information?: Rarely current occupation: Retired banker at [employer] Pets and animals: Yes Pets and animals: cat(s) Sexually active: Yes Do you think of yourself as: straight/heterosexual Current gender identity: male What is your relationship status?: How often do you talk on the phone with friends or family?: once per week How often do you get together with friends or relatives?: once per week Do you belong to any clubs or organized social groups?: no Panel score (0-1 are the most socially isolated patients): 1 What type of physical activity do you participate in: walking and yoga Duration: 60-90 minutes/day Frequency: 1-2 times per week Na/Sikh: None Special na needs: No Seatbelt use: always Helmet use: Yes Helmet use: always Drive intox or ride w/intox courtesy car driver: No Do you feel safe at home: Yes Do you feel safe in your relationship?: Yes Additional Social history: Enjoys being outside; hopes to start travelling more. Exam Narrative Exam Narrative: General: Well-appearing in no acute distress speaking in complete sentences. Head: Normocephalic, atraumatic. Eye: Extraocular eye movements intact. No conjunctival injection. No scleral icterus. Ear, nose, mouth, throat: Grossly normal inspection. Normal voice, handling secretions normally. Neck: Trachea midline. Cardiovascular: Well-perfused distal extremities. Respiratory: Nonlabored respiration. Gastrointestinal: Nondistended abdomen. Musculoskeletal: Left lower extremity with diffuse swelling below knee. Left lower extremity with 2+ PT and DP pulses. Left foot warm and well-perfused. No pain out of proportion. 5 out of 5 strength in dorsi and plantarflexion. No palpable cords. Negative Homans' sign. Sensation slightly decreased in the dorsal webspace between the left first and second toes compared to contralateral foot. No pain in knee. No fluctuance. No erythema. Skin: Normal for age and race, grossly normal temperature and turgor. No acute rash. Neurologic: Alert and appropriate, no apparent acute deficits. Psychiatric: Mood and manner are appropriate. Grooming and personal hygiene are appropriate. POCUS Exam (ED) Limited Vascular Exam DATE OF EXAM: 03/24/23 TIME OF EXAM: 17:39 Vascular Exam: Left lower extremity REASON FOR EXAM: Concern for DVT left lower extremity VISUALIZED STRUCTURES: Left common femoral vein, Left popliteal vein and Left greater saphenous vein PERTINENT FINDINGS/IMPRESSION: Compressible veins left leg and Other impression: Negative limited bedside left lower extremity DVT study Exam Complete
[2023-03-24 16:36] VITALS: BP 149/64; PULSE 68; RESP 16; O2SAT 96
--- NOTE | 2023-03-24 16:45 | RT.EKG_ITS ---
APPROVED REPORT Exam: Resting ECG Reason for Exam: Shortness of breath Patient Location: E HR:65 bpm ECG Measurements Heart Rate 65 AXIS UT 160 P 54 QRSd 97 QRS -11 QT 400 T 19 QTc 413 Conclusion Sinus rhythm...normal P axis, V-rate 60- 99 Atrial premature complex...SV complex w/ short R-R interval Narrow complex normal sinus rhythm at a rate of 65. Normal axis. Intervals within normal limits. N o ST segment abnormalities. No T wave inversions. No prior for comparison.
--- NOTE | 2023-03-24 16:45 | DI.RAD_ITS ---
Exam(s) XR PORTABLE CHEST AP EXAM: XR PORTABLE CHEST AP CLINICAL HISTORY: Shortness of breath TECHNIQUE: 2D digital imaging was performed. COMPARISON: CR XR CHEST 2V PA LATERAL from 07/15/2019 FINDINGS: LUNGS: Clear. No pleural abnormality seen. HEART: Enlarged. AORTA: Normal diameter. BONES: Unremarkable for age. Soft tissues: Unremarkable. IMPRESSION: No acute findings. DATA REPOSITORY: RADIATION DOSE DELIVERED:
[2023-03-24 17:14] LABS: BE (Venous) 2 mmol/L (-2-3); HCO3 (Venous) 28 mmol/L (23-28); O2 Sat (Venous) 45 %; TCO2 (Venous) 26 mmol/L (24-29); pCO2 (Venous) 49 mmHg (41-51); pH (Venous) 7.36 (7.31-7.41); pO2 (Venous) 28 mmHg
[2023-03-24 17:15] LABS: Abs Immature Grans 0.17 10^3/uL (0.0-0.06); Absolute Basophil Count 0.07 10^3/uL (0.0-0.2); Absolute Eosinophil Count 0.24 10^3/uL (0.0-0.7); Absolute Lymphocyte Count 2.19 10^3/uL (1.2-3.4); Absolute Monocyte Count 0.78 10^3/uL (0.1-0.8); Absolute Neutrophil Count 8.03 10^3/uL (1.2-6.7); Basophils % 0.6; Eosinophils % 2.1; HCT 33.6 % (40.0-50.0); HGB 11.5 g/dL (13.5-17.5); Immature Grans % 1.5; Lymphocytes % 19.1; MCH 32.6 pg (27.0-33.0); MCHC 34.2 % (32.0-36.0); MCV 95 fL (80-95); MPV 9.7 fL (8.0-11.0); Monocytes % 6.8; Neutrophils % 69.9; Platelet Count 407 10^3/uL (130-400); RBC 3.53 10^6/uL (4.36-5.78); RDW 12.3 % (11.8-14.1); RDW-SD 43.3 fL; WBC 11.49 10^3/uL (4.4-10.8)
[2023-03-24 17:42] LABS: ALT 47 U/L (16-63); AST 17 U/L (15-37); Albumin 3.1 g/dL (3.4-5.0); Alkaline Phosphatase 87 U/L (46-116); Anion Gap 10.3 mmol/L (3-11); BUN 27 mg/dL (7-18); Bilirubin, Total 0.4 mg/dL (0.2-1.0); CO2 27.7 mmol/L (21.0-32.0); CREATININE 1.2 mg/dL (0.70-1.30); Calcium 9.4 mg/dL (8.5-10.1); Chloride 98 mmol/L (98-107); Estimated GFR 65.06 (mL/min/1.73m2); Glucose 111 mg/dL (74-106); NT-proBNP 63 pg/mL (<300); Potassium 4.4 mmol/L (3.5-5.1); Sodium 136 mmol/L (136-145); Total Protein 8.1 g/dL (6.4-8.2); Troponin I < 50 ng/L (<or=60)
[2023-03-24 17:46] LABS: D-Dimer 1361 ng/mlFEU (<500)
--- NOTE | 2023-03-24 18:03 | NUR.NOTE ---
Nursing Note: PT needs follow up with PCP next week for Left Lower extremity swelling; concern for DVT. Corrina, ED
[2023-03-24 18:44] VITALS: RESP 16; TEMP 37.1
[2023-03-24] MEDS: Rivaroxaban 15 MG TABLET PO (18:50)
== END 2023-03-24 18:47 | disposition home or self-care (01) ==
PROVIDERS: Emergency Provider Emergency Medicine; PCP Family Medicine
DX: R22.42 Localized swelling, mass and lump, left lower limb (principal)
CPT/HCPCS: 80053; 82805; 93005; 93971; 99285; 71045; 83880; 84484; 85025; 85379; 93010; 99284

== ENCOUNTER → 2023-03-28 03:28 | Outpatient (CLI) | payer MEDICARE, SELFPAY ==
--- NOTE | 2023-03-28 | DI.US_ITS ---
Exam(s) US LOWER EXTREMITY VENOUS LT EXAM: US LOWER EXTREMITY VENOUS LT CLINICAL HISTORY: LT LEG SWELLING, R22.42 TECHNIQUE: Grayscale, color, and doppler imaging of the deep venous system of the left lower extremi ty was performed. COMPARISON: US POCUS EXAM from 03/24/2023 FINDINGS: There is no evidence of intraluminal thrombus and there is normal compression and augmentation demons trated within the common femoral vein, femoral vein, and popliteal vein. In the ipsilateral calf the interrogated veins also exhibit normal compression/ augmentation properti es. The ipsilateral saphenofemoral junction is patent. IMPRESSION: 1. No evidence of DVT in the left lower extremity. DATA REPOSITORY:
== END ==
PROVIDERS: PCP Family Medicine; Visit Provider Emergency Medicine
DX: R22.42 Localized swelling, mass and lump, left lower limb (principal)
CPT/HCPCS: 93971

== ENCOUNTER → 2023-03-29 15:27 | Outpatient (CLI) | payer MEDICARE, SELFPAY ==
--- NOTE | 2023-03-29 12:45 | DI.RAD_ITS ---
Exam(s) XR KNEE LT 3V AP,LAT,CRISTIANA EXAM: XR KNEE LT 3V AP,LAT,CRISTIANA CLINICAL HISTORY: left knee pain, unable to flex M25.562 PAIN LEFT KNEE. TECHNIQUE: 2D digital imaging was performed of the left knee. Three images were obtained. AP, late ral and PA tunnel views were obtained. COMPARISON: CR,XR XR KNEE LT 3V AP,LAT,CRISTIANA from 07/17/2022 FINDINGS: BONES: No acute fracture is present. No bony destructive lesion is seen. JOINTS: There is mild joint space narrowing. The joints are otherwise well maintained. No joint eff usion is seen. No loose body. SOFT TISSUE: Normal. IMPRESSION: Mild degenerative changes of the knee. DATA REPOSITORY: RADIATION DOSE DELIVERED:
== END ==
PROVIDERS: PCP Family Medicine; Visit Provider Family Medicine
DX: M17.12 Unilateral primary osteoarthritis, left knee (principal)
CPT/HCPCS: 73562

== ENCOUNTER 2023-03-30 14:09 | Outpatient (CLI) | payer MEDICARE, SELFPAY ==
--- NOTE | 2023-03-30 13:45 | DI.RAD_ITS ---
Exam(s) XR ANKLE LT COMPLETE EXAM: XR ANKLE LT COMPLETE CLINICAL HISTORY: left ankle pain. TECHNIQUE: 2D digital imaging was performed. COMPARISON: No exams were available for comparison FINDINGS: 3 views There is soft tissue swelling around both sides of the ankle. There is vascular calcification noted in the anterior tibial artery and dorsalis pedis artery. There is edema in the deep soft tissues als o evident. Cannot exclude subtle gas. Fractures nor widening of the ankle mortise. Talar dome unremarkable. No obvious degenerative huff es in the ankle and subtalar joints. There is no obvious radiographic evidence of osteomyelitis. IMPRESSION: Soft tissue findings as above. No radiographic evidence of osteomyelitis. Bone density normal. No fractures. DATA REPOSITORY: RADIATION DOSE DELIVERED:
--- NOTE | 2023-03-30 13:45 | DI.RAD_ITS ---
Exam(s) XR KNEE LT 1V EXAM: XR KNEE LT 1V CLINICAL HISTORY: eval L knee pain. TECHNIQUE: 2D digital imaging was performed. COMPARISON: CR XR KNEE LT 3V AP,LAT,CRISTIANA from 03/29/2023 FINDINGS: Single sunrise/merchant's view. No evidence of patellar fracture nor patellar displacement on this single view. There is also no sig nificant thinning of the retropatellar space. No degenerative changes evident. No osteochondral def ects evident. IMPRESSION: No significant radiographic findings on this single merchant's view of the left knee. DATA REPOSITORY: RADIATION DOSE DELIVERED:
== END 2023-03-30 14:10 | disposition home or self-care (01) ==
LOC: DIORS 14:09
PROVIDERS: PCP Family Medicine; Referring Provider Family Medicine; Visit Provider Student in an Organized Health Care Education/Training Program
DX: R22.42 Localized swelling, mass and lump, left lower limb; M76.52 Patellar tendinitis, left knee
CPT/HCPCS: 20610; 99214; 73560; 73610; J1040

== ENCOUNTER 2023-05-24 04:09 | Outpatient (CLI) | payer MEDICARE, SELFPAY ==
[2023-05-24 10:19] LABS: Hemoglobin A1C 7.1 % (<5.7)
[2023-05-24 10:32] LABS: ALT 55 U/L (16-63); AST 27 U/L (15-37); Alkaline Phosphatase 49 U/L (46-116); Anion Gap 6.9 mmol/L (3-11); BUN 23 mg/dL (7-18); Bilirubin, Total 0.3 mg/dL (0.2-1.0); CO2 28.1 mmol/L (21.0-32.0); CREATININE 1.2 mg/dL (0.70-1.30); Calcium 9.7 mg/dL (8.5-10.1); Calculated LDL 42 mg/dL (<100); Chloride 100 mmol/L (98-107); Cholesterol 160 mg/dL (<200); Estimated GFR 65.06 (mL/min/1.73m2); Glucose 128 mg/dL (74-106); HDL Cholesterol 39 mg/dL (40-60); Potassium 4.4 mmol/L (3.5-5.1); Sodium 135 mmol/L (136-145); Total Protein 7.5 g/dL (6.4-8.2); Triglyceride 396 mg/dL (<150)
[2023-05-24 10:57] LABS: COMMENT (LAB VIEW ONLY) 105.25 mg/dL; Microalb ug/mg Crea 7.1 ug/mg Cr
== END 2023-05-24 04:10 | disposition home or self-care (01) ==
LOC: LBO 04:09
PROVIDERS: PCP Family Medicine; Visit Provider Family Medicine
DX: E11.40 Type 2 diabetes mellitus with diabetic neuropathy, unspecified (principal)
CPT/HCPCS: 36415; 80053; 80061; 82043; 82570; 83036

== ENCOUNTER 2023-10-25 10:49 | Outpatient (CLI) | payer MEDICARE, SELFPAY ==
[2023-10-25 12:55] LABS: TSH (W/Ref FT4) 1.85 uIU/mL (0.36-3.74)
[2023-10-25 14:13] LABS: Hemoglobin A1C 7.7 % (<5.7)
== END 2023-10-25 10:50 | disposition home or self-care (01) ==
LOC: LOS 10:49
PROVIDERS: PCP Family Medicine; Referring Provider Family Medicine; Visit Provider Family Medicine
DX: E03.9 Hypothyroidism, unspecified (principal); E11.9 Type 2 diabetes mellitus without complications
CPT/HCPCS: 36415; 83036; 84443

== ENCOUNTER 2024-05-10 10:26 | Outpatient (CLI) | payer MEDICARE, SELFPAY ==
[2024-05-10 12:48] LABS: ALT 35 U/L (16-63); AST 20 U/L (15-37); Albumin 3.8 g/dL (3.4-5.0); Alkaline Phosphatase 59 U/L (46-116); Anion Gap 10.8 mmol/L (3-11); BUN 32 mg/dL (7-18); Bilirubin, Total 0.43 mg/dL (0.2-1.0); CO2 25.2 mmol/L (21.0-32.0); CREATININE 2.8 mg/dL (0.70-1.30); Calcium 9.3 mg/dL (8.5-10.1); Calculated LDL 54 mg/dL (<100); Chloride 99 mmol/L (98-107); Cholesterol 124 mg/dL (<200); Estimated GFR 23.39 (mL/min/1.73m2); Glucose 128 mg/dL (74-106); HDL Cholesterol 36 mg/dL (40-60); Potassium 4.5 mmol/L (3.5-5.1); Sodium 135 mmol/L (136-145); Total Protein 7.3 g/dL (6.4-8.2); Triglyceride 173 mg/dL (<150); Vitamin B12 956 pg/mL (193-986)
[2024-05-10 17:39] LABS: Lab Add On Test DONE
[2024-05-10 17:43] LABS: Bilirubin Negative (Negative); Blood Negative (Negative); Clarity Sl Cloudy (Clear); Glucose 100 mg/dL (Negative); Ketones 15 mg/dL (Negative); Leukocyte Esterase Negative (Negative); Nitrite Negative (Negative); Specific Gravity >= 1.030 (1.005-1.025); Urobilinogen 0.2 mg/dL (Up to 0.2)
== END 2024-05-10 10:27 | disposition home or self-care (01) ==
LOC: LOS 10:26
PROVIDERS: PCP Family Medicine; Referring Provider Family Medicine; Visit Provider Family Medicine
DX: E11.3299 Type 2 diabetes mellitus with mild nonproliferative diabetic retinopathy without macular edema, unspecified eye; N17.9 Acute kidney failure, unspecified; Z23 Encounter for immunization; F10.20 Alcohol dependence, uncomplicated; L03.012 Cellulitis of left finger
CPT/HCPCS: 36415; 80053; 80061; 81003; 82043; 82570; 82607

== ENCOUNTER 2024-05-17 03:00 | Outpatient (CLI) | payer MEDICARE, SELFPAY ==
[2024-05-17 11:38] LABS: Anion Gap 8.4 mmol/L (3-11); BUN 21 mg/dL (7-18); CO2 28.6 mmol/L (21.0-32.0); CREATININE 1.1 mg/dL (0.70-1.30); Calcium 9.4 mg/dL (8.5-10.1); Chloride 104 mmol/L (98-107); Estimated GFR 71.77 (mL/min/1.73m2); Glucose 105 mg/dL (74-106); Potassium 4.2 mmol/L (3.5-5.1); Sodium 141 mmol/L (136-145)
== END 2024-05-17 03:01 | disposition home or self-care (01) ==
LOC: LBO 03:00
PROVIDERS: PCP Family Medicine; Visit Provider Family Medicine
DX: N17.9 Acute kidney failure, unspecified (principal)
CPT/HCPCS: 36415; 80048

== ENCOUNTER 2024-06-10 03:12 | Outpatient (CLI) | payer MEDICARE, SELFPAY ==
[2024-06-10 17:27] LABS: Anion Gap 8.9 mmol/L (3-11); BUN 19 mg/dL (7-18); CO2 32.1 mmol/L (21.0-32.0); CREATININE 1.4 mg/dL (0.70-1.30); Calcium 9.4 mg/dL (8.5-10.1); Chloride 102 mmol/L (98-107); Estimated GFR 53.74 (mL/min/1.73m2); Glucose 81 mg/dL (74-106); Potassium 4.2 mmol/L (3.5-5.1); Sodium 143 mmol/L (136-145)
== END 2024-06-10 03:13 | disposition home or self-care (01) ==
PROVIDERS: PCP Family Medicine; Visit Provider Family Medicine
DX: I10 Essential (primary) hypertension (principal); N17.9 Acute kidney failure, unspecified
CPT/HCPCS: 36415; 80048

== ENCOUNTER → 2024-08-29 13:32 | Outpatient (BNVA) | payer MEDICARE, SELFPAY | PROVIDERS: PCP Family Medicine; Referring Provider Family Medicine; Visit Provider Physical Therapy Assistant | DX: Z12.11 Encounter for screening for malignant neoplasm of colon (principal); E11.9 Type 2 diabetes mellitus without complications ==

== ENCOUNTER 2024-09-20 07:37 | Day surgery (SDC) | payer MEDICARE, SELFPAY ==
--- NOTE | 2024-09-19 14:21 | PDOC.DSDIS_ITS ---
Date of service: 09/20/24 Discharge Plan Disposition Patient Disposition: Home Condition: Good Discharge Details Reason For Visit: screening colonoscopy Attending Provider: Gurvinder Dewitt Primary Care Provider: Nany Mao Home Meds and New Rx's Prescriptions: Continued galcanezumab-gnlm 120 mg/mL pen injector 120 mg subcut QMONTH mometasone 0.1 % cream 1 applic TP DAILY PRN (Reason: skin irritation) Qty: 15 2RF Rx Instructions: local application in thin layer on ear once a day as needed multivitamin Capsule 1 cap PO DAILY Nurtec ODT 75 mg tablet,disintegrating 75 mg PO ONCE PRN Rx Instructions: as a single dose aspirin [Aspirin Low-Strength] 81 MG tablet,chewable 81 mg PO DAILY riboflavin (vitamin B2) 100 MG tablet 2 cap PO BID Lactobacillus acidophilus 1 EACH capsule 2 cap PO DAILY alpha lipoic acid 300 MG capsule 600 mg PO DAILY cholecalciferol (vitamin D3) [Vitamin D3] 1,000 UNIT capsule 1,000 unit PO DAILY duloxetine 60 mg capsule,delayed release(DR/EC) 60 mg PO DAILY Qty: 90 4RF coenzyme Q10 100 mg capsule 400 mg PO DAILY calcium carbonate 600 mg calcium (1,500 mg) tablet 1,800 mg PO DAILY omega-3 fatty acids-fish oil 300-1,000 mg capsule 1 cap PO DAILY Patient Comments: 1000 units EPA magnesium citrate 100 mg tablet 100 mg PO DAILY ascorbic acid (vitamin C) 1,000 mg capsule 1 g PO BID Stress B-Complex 500 mg-400 mcg- 23.9 mg-3 mg tablet 1 tab PO DAILY Qty: 90 0RF levothyroxine 88 mcg tablet 88 mcg PO DAILY Qty: 90 3RF Rx Instructions: /take one tablet daily lisinopril 40 mg tablet 40 mg PO DAILY Qty: 90 3RF metformin 500 mg tablet 500 mg PO BID Qty: 180 3RF metoprolol succinate 100 mg tablet extended release 24 hr 100 mg PO DAILY Qty: 90 3RF pravastatin 40 mg tablet 40 mg PO DAILY Qty: 90 3RF semaglutide 2 mg/dose (8 mg/3 mL) pen injector 2 mg subcut QWEEK Qty: 9 3RF Rx Instructions: for 4 weeks gabapentin 300 mg capsule 300 mg PO BID Qty: 180 11RF Discontinued bisacodyl [Dulcolax (bisacodyl)] 5 mg tablet,delayed release (DR/EC) 5 mg PO ONCE Qty: 4 0RF Rx Instructions: Take per colonoscopy instructions provided by ordering providers office polyethylene glycol 3350 17 gram/dose powder 17 g PO ONCE Qty: 238 0RF Rx Instructions: Take per colonoscopy instructions provided by ordering providers office Discharge Instructions Additional Instructions: Time, I enjoyed meeting you today, and I hope you are comfortable through the colonoscopy. Everything went very smoothly. I could see everything fine today. There were no tumors, polyps, or any other worrisome pathology. With a negative colonoscopy today, I would encourage you to consider another 1 in 10 years. If you need anything, or have any questions, please do not hesitate to ask. 1. If tolerated, consume a soft, low fiber diet for 1-2 days. [address] Do not drive, drink alcohol, operate machinery, make critical decisions, or do activities that require coordination or balance for 24 hours. 3. Because air was put into your colon during the procedure, expelling air from your rectum (passing gas or farting) is normal. 4. You may not have a bowel movement for 1-3 days because of the colonoscopy pre p. This is normal. 5. Go directly to the emergency room if you notice any of the following: Develop chills (warm to touch), or if you have a thermometer and your temperature is above 101 Difficulty breathing or difficultly swallowing Persistent vomiting Severe abdominal pain, other than gas cramps Severe chest pain Black, tarry stools Any bleeding ? exceeding one tablespoon 6. Call your physician if the site where your intravenous was started becomes red, swollen, painful, and warm to touch. 7. Your physician has reviewed your pre-procedure medications. Please continue to take those medications as previously ordered. You will be given specific information/education regarding any changes to your medications before leaving. Activity:: Activity as Tolerated Diet:: As Tolerated Discharge Orders Discharge Orders: Discharge Order (Routine); Ordered 09/19/24 Ordered By: Gurvinder Dewitt DS: Diagnosis Discharge Diagnosis (1) Encounter for screening colonoscopy: Status: Acute Asessment and Plan: Negative screening colonoscopy; 10-year follow-up
--- NOTE | 2024-09-19 14:22 | W.COLOREPORT ---
Date of service: 09/20/24 Time of Service: 10:06 Colonoscopy Report Date of procedure: 09/20/24 Pre-op diagnosis general: screening colonoscopy Post-op diagnosis procedure note: other (Negative screening colonoscopy) Procedure: colonoscopy Surgeon: Gurvinder Dewitt Anesthesia Type: General:No Airway Estimated blood loss (mL): 0 Pathology: none sent Complications: None Disposition: same day Indications: Vishnu is a 69 year old man who needs his next screening colonoscopy Prep: Miralax/Dulcolax Procedure Start Time: 09:30 Procedure End Time: 09:55 Retraction Time: 7 Findings: Negative screening colonoscopy Procedure Description: After the induction of anesthesia, and with the patient in left lateral decubitus position, I began by performing an external anorectal exam.? Perineum and skin were normal, as was the anal verge.? Next, I performed a digital rectal exam.? I did not appreciate any abnormal findings.? Next, I advanced a colonoscope into the rectal vault.? I performed retroflexion.? This appeared normal.? Using insufflation, I then advanced the colonoscope beyond the rectal folds and into the sigmoid colon before advancing towards the cecum.? The quality of the prep was excellent.? The scope was noted to be in the cecum by identification of the ileocecal valve and appendiceal orifice.? I then began withdrawing the colonoscope using repeated irrigation as necessary for full evaluation of the colonic mucosa. ?Once the scope was withdrawn to the level of the rectum, great care was taken to examine portions of the rectal folds. I saw no signs of tumors, polyps, or any other significant pathology.? Finally, the scope was withdrawn and the patient was brought to the same-day surgery recovery unit as the anesthetic wore off. ?The findings and instructions were shared with the patient prior to discharge. [place] Bowel Prep Philadelphia Bowel Prep Right Colon: 3 Left Colon: 3 Transverse Colon: 3 Total Score: 9
[2024-09-20 08:05] VITALS: BP 123/87; PULSE 63; RESP 16; TEMP 36; O2SAT 97
[2024-09-20] MEDS: Lactated Ringers 1,000 ML 80 ML IV (08:21)
--- NOTE | 2024-09-20 09:10 | ANES.PREOP_ITS ---
General Info Date of Service Date Performed: 09/20/24 Height: 5 ft 8 in Weight: 99.1 kg Body Mass Index (BMI): 33.2 Surgical Procedure: Operation Date: 09/20/24 09:05 Proposed Procedure Side Surgeon p Colonoscopy Gurvinder Dewitt MD Actual Procedure Side Surgeon p Colonoscopy Not Applicable Gurvinder Dewitt MD Pre-Op Diagnosis Post-Op Diagnosis screening colonoscopy Meds Allergies and Home Medications Allergies Allergy/AdvReac Type Severity Reaction Status Date / Time apixaban (From Eliquis) AdvReac Intermediate Swelling/Ed Verified 09/20/24 08:13 caroline zonisamide AdvReac Mild Confusion Verified 09/20/24 08:13 Home Medication ?Medication ?Instructions ?Recorded aspirin 81 mg chewable tablet 81 mg PO DAILY 12/21/12 (Aspirin Low-Strength) Lactobacillus acidophilus 100 2 cap PO DAILY 01/26/17 million cell capsule alpha lipoic acid 300 mg capsule 600 mg PO DAILY 01/26/17 riboflavin (vitamin B2) 100 mg 2 cap PO BID 01/26/17 tablet cholecalciferol (vitamin D3) 25 1,000 unit PO DAILY 02/21/17 mcg (1,000 unit) capsule (Vitamin D3) duloxetine 60 mg capsule,delayed 60 mg PO DAILY #90 caps 09/05/18 release coenzyme Q10 100 mg capsule 400 mg PO DAILY 09/18/18 mometasone 0.1 % topical cream 1 applic topical DAILY PRN skin 01/08/20 irritation #15 grams calcium carbonate 1,800 mg PO DAILY 11/27/20 rimegepant 75 mg disintegrating 75 mg PO ONCE PRN 12/21/22 tablet (Nurtec ODT) galcanezumab-gnlm 120 mg/mL 120 mg subcut QMONTH Headaches 01/03/23 subcutaneous pen injector from concussion multivitamin 1 cap PO DAILY 06/07/23 omega-3 fatty acids-fish oil 300 1 cap PO DAILY 06/07/23 mg-1,000 mg capsule B complex-C 500 mg-folic 400 1 tab PO DAILY #90 tabs 06/24/24 mcg-zinc 23.9 mg-copper 3 mg-vit E tablet (Stress B-Complex) ascorbic acid (vitamin C) 1,000 mg 1 g PO BID 06/24/24 capsule magnesium citrate 100 mg tablet 100 mg PO DAILY 06/24/24 levothyroxine 88 mcg tablet 88 mcg PO DAILY #90 tabs 09/12/24 lisinopril 40 mg tablet 40 mg PO DAILY #90 tabs 09/12/24 metformin 500 mg tablet 500 mg PO BID #180 tabs 09/12/24 metoprolol succinate 100 mg 100 mg PO DAILY #90 tabs 09/12/24 tablet,extended release 24 hr pravastatin 40 mg tablet 40 mg PO DAILY #90 tabs 09/12/24 semaglutide 2 mg/dose (8 mg/3 mL) 2 mg (0.75 mL) subcut QWEEK #9 mL 09/12/24 subcutaneous pen injector gabapentin 300 mg capsule 300 mg PO BID #180 caps 09/18/24 Current Visit Medications: Current Medications Generic Name Dose Route Start Last Admin Trade Name Freq PRN Reason Stop Dose Admin Ringer's Solution 1,000 mls @ 80 mls/hr 09/20/24 06:00 09/20/24 08:21 IV 09/20/24 23:59 80 mls/hr INFUSION ARMAND Administration IV Miscellaneous Supplies 1 each 09/20/24 06:00 Iv Access IV 09/20/24 23:59 DIRECTED ARMAND Ondansetron HCl 4 mg 09/19/24 14:23 Ondansetron 4 Mg/2 Ml Vial IVP 10/19/24 14:22 Q4H PRN PRN Nausea / Vomiting Sodium Chloride 0 ml 09/20/24 06:00 Normal Saline Flush 10 Ml Syr IV 09/20/24 23:59 PRN PRN Sodium Chloride 0 ml 09/20/24 06:00 Normal Saline 10 Ml Vial IJ 09/20/24 23:59 DIRECTED PRN Sterile Water 0 ml 09/20/24 06:00 Water,Injection,Sterile 10 Ml Vial IJ 09/20/24 23:59 DIRECTED PRN PFSH Active Problems Active Problems: Problem Status Onset Code Stage 3a chronic kidney disease (CKD) Acute N18.31 Alcohol use disorder, moderate, dependence Acute F10.20 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 Acute ~04/07/23 E11.3299 Patellar tendinitis, left knee Acute M76.52 Left anterior knee pain Acute M25.562 Type 2 diabetes mellitus with diabetic neuropathy, unspecified Acute E11.40 Sensorineural hearing loss, bilateral Chronic 07/16/15 H90.3 Postconcussion syndrome Chronic 05/21/14 F07.81 Hypothyroidism Chronic 12/24/12 E03.9 Hyperlipidemia Chronic 12/24/12 E78.5 Essential hypertension Chronic 08/30/13 I10 Anxiety Chronic 12/20/11 F41.9 Medical History Medical History Allergic rhinitis Atypical chest pain 2020-negative ETT COVID-19 12/01/21, URI symptoms; 03/2023 Deep venous thrombosis of left peroneal vein (~07/2022) managed with 3 mos of xarelto Excessive drinking alcohol History of tobacco use quit 2014 Sciatica (07/06/01) Surgical History Surgical History History of carpal tunnel surgery bilat S/P Achilles tendon repair S/P appendectomy S/P carpal tunnel release S/P cubital tunnel release S/P tonsillectomy and adenoidectomy Tobacco Smoking/Tobacco Use Status: Former Tobacco Use Passive smoking exposure: No Second hand exposure: Yes Alcohol Alcohol Intake: current Alcohol intake frequency: a few times a week Alcohol type: beer, wine and hard liquor Substance Use Substance use: Daily Substance use type: marijuana and other Details: edibles Vital Signs and Lab Results Vital Signs Most Recent Vital Signs in EMR: Most Recent Vital Signs Temp Pulse Resp BP Pulse Ox 36 C L 63 16 123/87 97 09/20/24 08:05 09/20/24 08:05 09/20/24 08:05 09/20/24 08:05 09/20/24 08:05 Lab Results Blood Type / Crossmatch: No Data to Display Complete Blood Count: No Data to Display Complete Metabolic Panel: No Data to Display Liver Function Panel: No Data to Display Coagulation Panel: No Data to Display Cardiac Panel: No Data to Display Arterial Blood Gas: No Data to Display Venous Blood Gas: No Data to Display Pancreas Panel: No Data to Display Thyroid Panel: No Data to Display Infectious Disease: No Data to Display Blood Cultures: No Data to Display Toxicology Panel: No Data to Display Imaging and Studies Imaging and Studies Study information below may be from another EMR and interpreted by another provider. Please see original notes in EMR for more complete details. EKG Summary: EKG PATIENT NAME: Ruby Pagan UNIT #: [id number] ORDERING PROVIDER: Joel Nichols M.D. PRIMARY CARE PROVIDER: LIAM ARREAGA MD DATE/TIME OF SERVICE: 03/24/231702 : 1955 PERFORMING LOCATION: ER APPROVED REPORT Exam: Resting ECG Reason for Exam: Shortness of breath Patient Location: E HR:65 bpm ECG Measurements Heart Rate 65 AXIS ND 160 P 54 QRSd 97 QRS -11 QT 400 T19 QTc 413 Conclusion Sinus rhythm...normal P axis, V-rate 60- 99 Atrial premature complex...SV complex w/ short R-R interval Narrow complex normal sinus rhythm at a rate of 65. Normal axis. Intervals within normal limits. No ST segment abnormalities. No T wave inversions. No prior for comparison. <Electronically signed by Joel Nichols M.D. in [place]> E-Sign Date: 03/24/23 E-Sign Time: 1846 ADDENDUM APPROVED REPORT Exam: Resting ECG Reason for Exam: Shortness of breath Patient Location: E HR:65 bpm ECG Measurements Heart Rate 65 AXIS ND 160 P 54 QRSd 97 QRS -11 QT 400 T19 QTc 413 Conclusion Sinus rhythm...normal P axis, V-rate 60- 99 Atrial premature complex...SV complex w/ short R-R interval Narrow complex normal sinus rhythm at a rate of 65. Normal axis. Intervals within normal limits. No ST segment abnormalities. No T wave inversions. No prior for comparison. I have reviewed and I agree with the emergency room physician's ECG inter pretation. Electronically signed by: <Electronically signed by Rani Melgar M.D. in [place]> 03/27/23 0826 Cosigned by: Stress Test Summary: STRESS TEST PATIENT NAME: RUBY PAGAN UNIT #: [id number] ADMITTING PROVIDER: RANI MELGAR MD PRIMARY CARE PROVIDER: Pedro Ritchie M.D. DATE OF SERVICE: 06/02/20 : 1955 APPROVED REPORT Exam: Exercise Treadmill Patient Location: Out-Patient Room/Bed: Stress Nurse: Ruby Carson RN BMI: 34.20 Baseline Rhythm: Sinus Rhythm Comment: occ PVC Indications: Dyspnea on exertion with new onset 4/10 dull right lower chest discomfort. Medical History Medical History: HTN. HLD. Prediabetes. Hx Smoking. Anxiety. ETOH. Post concussion Syndrome. Neuropathy. Sleep apnea. Cardiac Medications: ASA. Co-Q 10. Magnesium Oxide. Lisinopril - Hydrochlorothiazide. Metformin. Metoprolol Succinate. Pravastatin. , Allergies: Zonisamide. Cardiac Risk Factors: HTN, Hyperlipidemia, FHX of CAD, Diabetes (non-insulin), Smoking (former) Previous Cardiac Procedures: None. Pretest Chest Pain Characteristics: None. Exercise History: Physically active Physical Disabilities: None. Lung Sounds: Clear to auscultation Heart Sounds: Regular Stress Test Details Test: Exercise stress testing was performed using a Aren protocol. Rest Stress HR Resting HR Supine: 70 bpmMax Heart Rate (APMHR): 153 bpm Resting HR Standin bpmTarget HR (85% APMHR): 130 bpm Max HR Achieved: 154 bpm % of APMHR: 100 Recovery HR: 92 bpm HR response to stress: Normal HR response to stress BP Resting BP Supine: 160/88 mmHg Resting BP Standin/90 mmHg Max BP: 218/68 mmHg Recovery BP: 174/80 mmHg BP response to stress: Normal blood pressure response to stress. ECG Resting ECG: Sinus Rhythm Ectopy: occasional PVC Stress ECG: Sinus Tachycardia ST Change: no significant ST segment changes Arrhythmia: occasional PVC Recovery ECG: Sinus Rhythm Recovery ST Change: no significant ST segment changes Recovery Arrhythmia: PVCs Clinical Reason for Termination: Fatigue Exercise duration: 12 min12 sec Highest Stage Reached: Stage 5: 5.0 mph at 18% grade. Exercise capacity: 13.62 METs Stress ECG Conclusion 1. Resting electrocardiogram shows left anterior fascicular block 2. The patient exercised on the Aren protocol. He completed a workload of 13.62 METS 3. Normal heart rate response to exercise. The patient achieved 100% of predicted heart rate for age 4. Hypertensive blood pressure response to exercise 5. Sporadic PVCs were seen 6. Electrocardiographically the test was negative for myocardial ischemia 7. Ramirez treadmill score is 12, low probability Stress Test Summary STAGETime (mins)Speed (mph)Grade (%)HRBPSYMPTOMSMETS [id number]/88 Ulozjmrd15626/90 [id number]/864.6 [id number]/787 [id number]/7210.2 [id number] 1 min [id number]/68 3 min minwbnij877018/70 6 min [id number]/80 Dictated by: RANI MELGAR MDROD Dictated:: 06/02/20 0958 <Electronically signed by Rani Melgar M.D. in [place]> 06/02/20 1031 Transcribed Date: Transcribed Time: By: JUAN This is privileged, confidential information, intended only for the provider named. Any use or distribution by any person other than this provider is stri ctly prohibited. If you receive this report in error, please notify us immediately at [phone] and return the original report to us at the address above. Thank you. Echocardiogram Summary: ECHOCARDIOGRAM REPORT PATIENT NAME: RUBY PAGAN UNIT #: [id number] ADMITTING PROVIDER: KISHAN TIPTON MD PRIMARY CARE PROVIDER: FADIA THEODORE MD DATE OF SERVICE: 10/24/13 : [birth year] OUTPATIENT ORDERING PHYSICIAN: Fadia Theodore MD HEIGHT: 5 FT 8 IN WEIGHT: 220 LBS BSA: 2.1 m2 STUDY INDICATIONS: Shortness of breath. FINDINGS: LEFT VENTRICLE: Normal size and systolic function. Estimated LVEF 65%. RIGHT VENTRICLE: Normal size and systolic function. AORTIC VALVE: Trileaflet, opens well, without regurgitation. MITRAL VALVE: Opens well, with trace regurgitation. TRICUSPID VALVE: Trace regurgitation. RSV/PA PRESSURE: RSV pressure 34 mmHg. PULMONIC VALVE: Normal. LEFT/RIGHT ATRIA: Normal biatrial size. DIASTOLIC INDICES: Normal. GREAT VESSELS: Normal. PERICARDIUM: No effusion. RHYTHM: SUMMARY: Rhythm is sinus, with occasional single PVCs. The left ventricle shows normal size and systolic function. Estimated LVEF 65%. LV diastolic function also appears to be normal. Normal LA size. No significant aortic, mitral, or tricuspid valve disease is present. The right ventricle is normal, with normal pulmonary artery pressures. MEASUREMENTS: LVESD 29 mm LVEDD 58 mm IVS 10 mm PW 10 mm Ascending Aorta 34 mm AO Root AV AO Velocity LA 15 cm sq. RA 9 cm sq. Right atrial pressure AV-PK/M LVOT size LVOT gradient Deceleration time Isovolumic relaxation time E/A ratio IVC collapses Yes. Dictated by: KISHAN TIPTON MD Dictated:: 10/24/13 1453 <Electronically signed by KISHAN TIPTON MD> 11/07/13 0756 Transcribed Date: 10/25/13 Transcribed Time: 920 By: This is privileged, confidential information, intended only for the provider named. Any use or distribution by any person other than this provider is strictly prohibited. If you receive this report in error, please notify us immediately at [phone] and return the original report to us at the address above. Thank you. Pulmonary Function Summary: Pulmonary Function Test PATIENT NAME: RUBY PAGAN UNIT #: [id number] ADMITTING PROVIDER: Manisha Hernández M.D. PRIMARY CARE PROVIDER: PEDRO RITCHIE MD DATE OF ADMIT: 06/25/20 : 1955 Date of service: 06/25/20 Time of Service: 08:10 Pulmonary Function Test Result Interpretation Spirometry: No evidence of obstructive airways disease, no bronchodilator response. Somewhat suboptimal patient effort for prebronchodilator testing Lung Volumes: No evidence of restriction Diffusion Capacity: Normal Airway Pressure: Normal Impression Normal pulmonary function study. Somewhat suboptimal patient effort for prebronchodilator Spirometry Clinical Correlation therefore is recommended. cc: Dictated by: MANISHA HERNÁNDEZ MD Dictated: 06/29/20 Time: 818 <Electronically signed by Manisha Hernández M.D.> Date: 06/29/20819 Date: Anesthesia Assessment and Plan Anesthesia History Personal History: No History of Anesthesia Complications Family History: No Family History of Anesthesia Complications Exercise Tolerance Exercise Tolerance: Metabolic Equivalents>4 Pertinent Negatives Pertinent Negatives: No Symptoms of GERD Cardiac & Pulmonary Exam Cardiac Exam: Normal S1/S2 Heart Sounds Pulmonary Exam: Clear Bilateral Breath Sounds Implantable Cardiac Device Does patient have a Pacemaker or an ICD?: No Airway Exam Known Difficult Airway: No Mallampati Class: 2 Mouth Opening: Normal (> 3cm) Thyromental Distance: Greater than 3 cm Neck Range of Motion: Full ROM Neck Circumference: Normal Teeth Condition: Normal Dentition ASA Classification ASA Score: ASA 3 Emergency Case?: No NPO Status NPO Status: NPO Clears >2 hours, Solids >8 hours Anesthesia Plan Resuscitation Status: Full Code Anesthesia Technique: General Anesthesia Airway Planned: Natural Airway Monitors Used: Standard Monitors
[2024-09-20 09:12] VITALS: BMI 33.2
[2024-09-20 10:03] VITALS: BP 103/69; PULSE 55; RESP 16; TEMP 36.2; O2SAT 96
--- NOTE | 2024-09-20 10:11 | W.ANESPOSTOP ---
Postoperative Evaluation Date, Time and Location Date Performed: 09/20/24 Time Performed: 10:03 Patient Location: Day Surgery Unit Vital Signs Most Recent Imported Vital Signs: Most Recent Vital Signs Temp Pulse Resp BP Pulse Ox 36.2 C L 55 L 16 103/69 96 09/20/24 10:03 09/20/24 10:03 09/20/24 10:03 09/20/24 10:03 09/20/24 10:03 Pain Score Most Recent Pain Score: Most Recent Pain Score Pain Level 0 09/20/24 10:03 Assessment Mental Status: Awake (Alert & Oriented to Patient Baseline) Airway and Respiratory Function: Patent airway with normal (patient baseline) respiratory exam Cardiovascular Function: Hemodynamically Stable Hydration Status: Adequately Hydrated Nausea & Vomiting: No Nausea or Vomiting Pain: Pt. Denies Any Pain Peripheral Nerve Block: Patient did not receive a nerve block
[2024-09-20 10:33] VITALS: BP 112/83; PULSE 60; RESP 10; TEMP 36.4; O2SAT 97
== END 2024-09-20 11:00 | disposition home or self-care (01) ==
LOC: SUR 07:37
PROVIDERS: PCP Family Medicine; Visit Provider Surgery
PROC: 0DJD8ZZ Inspection of Lower Intestinal Tract, Via Natural or Artificial Opening Endoscopic (ICD-10-PCS; CPT 45378; principal; 2024-09-20 09:00)
DX: Z12.11 Encounter for screening for malignant neoplasm of colon (principal); E11.22 Type 2 diabetes mellitus with diabetic chronic kidney disease; I10 Essential (primary) hypertension; N18.9 Chronic kidney disease, unspecified
CPT/HCPCS: G0121; J2704

== ENCOUNTER 2024-11-15 00:55 | Outpatient (CLI) | payer MEDICARE, SELFPAY ==
[2024-11-15 13:57] LABS: ALT 32 U/L (16-63); AST 19 U/L (15-37); Albumin 3.7 g/dL (3.4-5.0); Alkaline Phosphatase 46 U/L (46-116); Anion Gap 4.9 mmol/L (3-11); BUN 22 mg/dL (7-18); Bilirubin, Total 0.5 mg/dL (0.2-1.0); CO2 32.1 mmol/L (21.0-32.0); CREATININE 1.2 mg/dL (0.70-1.30); Calcium 9.6 mg/dL (8.5-10.1); Chloride 102 mmol/L (98-107); Estimated GFR 64.65 (mL/min/1.73m2); Glucose 90 mg/dL (74-106); Potassium 4.4 mmol/L (3.5-5.1); Sodium 139 mmol/L (136-145); TSH (W/Ref FT4) 0.86 uIU/mL (0.36-3.74)
[2024-11-15 22:01] LABS: PSA, Screening 0.7 ng/mL (<=6.5)
== END 2024-11-15 00:56 | disposition home or self-care (01) ==
PROVIDERS: PCP Family Medicine; Visit Provider Family Medicine
DX: Z12.5 Encounter for screening for malignant neoplasm of prostate (principal); E11.9 Type 2 diabetes mellitus without complications; E11.3299 Type 2 diabetes mellitus with mild nonproliferative diabetic retinopathy without macular edema, unspecified eye; E03.9 Hypothyroidism, unspecified
CPT/HCPCS: 36415; 80053; 84153; 84443

== ENCOUNTER 2025-07-31 19:03 | Observation (INO) | payer MEDICARE, SELFPAY ==
[2025-07-31] VITALS (23 sets, daily range): BP systolic 111–165; BP diastolic 74–92; PULSE 62–84; RESP 14–24; TEMP 36–38.2; O2SAT 95–97
--- NOTE | 2025-07-31 19:16 | W.ED.GENAD ---
Discharge Plan Disposition Patient Disposition: Admit to [facility] Condition: Stable Discharge Details Clinical Impression: Acute pyelonephritis, Gait abnormality Primary Care Provider: Nany Mao ED Provider: David Palmer Home Meds and New Rx's Prescriptions: No Action galcanezumab-gnlm 120 mg/mL pen injector 120 mg subcut QMONTH lutein 10 mg tablet 10 mg PO DAILY Rx Instructions: give with meal/snack sildenafil 100 mg tablet 100 mg PO DAILY PRN (Reason: sexual activity) Qty: 4.0 0RF Rx Instructions: administer 30 minutes to 4 hours before activity mometasone 0.1 % cream 1 applic TP DAILY PRN (Reason: skin irritation) Qty: 15 2RF Rx Instructions: local application in thin layer on ear once a day as needed multivitamin Capsule 1 cap PO DAILY Nurtec ODT 75 mg tablet,disintegrating 75 mg PO ONCE PRN Rx Instructions: as a single dose aspirin [Aspirin Low-Strength] 81 MG tablet,chewable 81 mg PO DAILY riboflavin (vitamin B2) 100 MG tablet 2 cap PO BID Lactobacillus acidophilus 1 EACH capsule 2 cap PO DAILY alpha lipoic acid 300 MG capsule 600 mg PO DAILY cholecalciferol (vitamin D3) [Vitamin D3] 1,000 UNIT capsule 1,000 unit PO DAILY duloxetine 60 mg capsule,delayed release(DR/EC) 60 mg PO DAILY Qty: 90 4RF coenzyme Q10 100 mg capsule 400 mg PO DAILY calcium carbonate 600 mg calcium (1,500 mg) tablet 1,800 mg PO DAILY omega-3 fatty acids-fish oil 300-1,000 mg capsule 1 cap PO DAILY Patient Comments: 1000 units EPA magnesium citrate 100 mg tablet 100 mg PO DAILY ascorbic acid (vitamin C) 1,000 mg capsule 1 g PO BID Stress B-Complex 500 mg-400 mcg- 23.9 mg-3 mg tablet 1 tab PO DAILY Qty: 90 0RF metformin 500 mg tablet 500 mg PO BID Qty: 180 3RF metoprolol succinate 100 mg tablet extended release 24 hr 100 mg PO DAILY Qty: 90 3RF semaglutide 2 mg/dose (8 mg/3 mL) pen injector 2 mg subcut QWEEK Qty: 9 3RF Rx Instructions: for 4 weeks gabapentin 300 mg capsule 300 mg PO BID Qty: 180 11RF pravastatin 40 mg tablet 40 mg PO DAILY Qty: 90 3RF levothyroxine 88 mcg tablet 88 mcg PO DAILY Qty: 90 3RF Rx Instructions: /take one tablet daily lisinopril 40 mg tablet 40 mg PO DAILY Qty: 90 3RF HPI General Date/Time Provider Initiated Documentation: 07/31/25 19:11. HPI Narrative: 70 year-old male presents to ED today by POV/ambulating with his with a chief complaint of dysuria, frequency, urgency, and L flank pain with onset noted today. Quality described as generalized discomfort with urination, no radiation to known fever, nausea, vomiting, chest pain, shortness of breath. Severity is described as moderate. Palliating factors include nothing specific. Provoking factors include nothing specific. Events leading up to the incident/Associated Symptoms: patient has taken a voluntary drug hiatus from all of their medications for 3 days to not overload their system. Later in visit- his notes he's been having gait abnormality and coordination issues- has history of ETOH use problems, and they recently got back from a cruise. Patient not anticoagulated. Related Data Home Medications ?Medication ?Instructions ?Recorded ?Confirmed aspirin 81 mg chewable tablet 81 mg PO DAILY 12/21/12 07/31/25 (Aspirin Low-Strength) Held on 07/31/25. Instructions: Pt Stopped/Never Started Lactobacillus acidophilus 100 2 cap PO DAILY 01/26/17 07/31/25 million cell capsule Held on 07/31/25. Instructions: Pt Stopped/Never Started alpha lipoic acid 300 mg capsule 600 mg PO DAILY 01/26/17 07/31/25 Held on 07/31/25. Instructions: Pt Stopped/Never Started riboflavin (vitamin B2) 100 mg 2 cap PO BID 01/26/17 07/31/25 tablet Held on 07/31/25. Instructions: Pt Stopped/Never Started cholecalciferol (vitamin D3) 25 1,000 unit PO DAILY 02/21/17 07/31/25 mcg (1,000 unit) capsule (Vitamin D3) Held on 07/31/25. Instructions: Pt Stopped/Never Started duloxetine 60 mg capsule,delayed 60 mg PO DAILY #90 caps 09/05/18 07/31/25 release Held on 07/31/25. Instructions: Pt Stopped/Never Started coenzyme Q10 100 mg capsule 400 mg PO DAILY 09/18/18 07/31/25 Held on 07/31/25. Instructions: Pt Stopped/Never Started mometasone 0.1 % topical cream 1 applic topical DAILY PRN skin 01/08/20 07/31/25 Held on 07/31/25. irritation #15 grams Instructions: Pt Stopped/Never Started calcium carbonate 1,800 mg PO DAILY 11/27/20 07/31/25 Held on 07/31/25. Instructions: Pt Stopped/Never Started rimegepant 75 mg disintegrating 75 mg PO ONCE PRN 12/21/22 07/31/25 tablet (Nurtec ODT) Held on 07/31/25. Instructions: Pt Stopped/Never Started galcanezumab-gnlm 120 mg/mL 120 mg subcut QMONTH Headaches 01/03/23 07/31/25 subcutaneous pen injector from concussion Held on 07/31/25. Instructions: Pt Stopped/Never Started multivitamin 1 cap PO DAILY 06/07/23 07/31/25 Held on 07/31/25. Instructions: Pt Stopped/Never Started omega-3 fatty acids-fish oil 300 1 cap PO DAILY 06/07/23 07/31/25 mg-1,000 mg capsule Held on 07/31/25. Instructions: Pt Stopped/Never Started B complex-C 500 mg-folic 400 1 tab PO DAILY #90 tabs 06/24/24 07/31/25 mcg-zinc 23.9 mg-copper 3 mg-vit E tablet (Stress B-Complex) Held on 07/31/25. Instructions: Pt Stopped/Never Started ascorbic acid (vitamin C) 1,000 mg 1 g PO BID 06/24/24 07/31/25 capsule Held on 07/31/25. Instructions: Pt Stopped/Never Started magnesium citrate 100 mg tablet 100 mg PO DAILY 06/24/24 07/31/25 Held on 07/31/25. Instructions: Pt Stopped/Never Started metformin 500 mg tablet 500 mg PO BID #180 tabs 09/12/24 07/31/25 Held on 07/31/25. Instructions: Pt Stopped/Never Started metoprolol succinate 100 mg 100 mg PO DAILY #90 tabs 09/12/24 07/31/25 tablet,extended release 24 hr Held on 07/31/25. Instructions: Pt Stopped/Never Started semaglutide 2 mg/dose (8 mg/3 mL) 2 mg (0.75 mL) subcut QWEEK #9 mL 09/12/24 07/31/25 subcutaneous pen injector Held on 07/31/25. Instructions: Pt Stopped/Never Started gabapentin 300 mg capsule 300 mg PO BID #180 caps 09/18/24 07/31/25 Held on 07/31/25. Instructions: Pt Stopped/Never Started levothyroxine 88 mcg tablet 88 mcg PO DAILY #90 tabs 09/20/24 07/31/25 Held on 07/31/25. Instructions: Pt Stopped/Never Started lisinopril 40 mg tablet 40 mg PO DAILY #90 tabs 09/20/24 07/31/25 Held on 07/31/25. Instructions: Pt Stopped/Never Started pravastatin 40 mg tablet 40 mg PO DAILY #90 tabs 09/20/24 07/31/25 Held on 07/31/25. Instructions: Pt Stopped/Never Started lutein 10 mg tablet 10 mg PO DAILY 06/20/25 07/31/25 Held on 07/31/25. Instructions: Pt Stopped/Never Started sildenafil 100 mg tablet 100 mg PO DAILY PRN sexual 06/20/25 07/31/25 Held on 07/31/25. activity #4.0 tabs Instructions: Pt Stopped/Never Started Previous Rx's ?Medication ?Instructions ?Recorded duloxetine 60 mg capsule,delayed 60 mg PO DAILY #90 caps 09/05/18 release Held on 07/31/25. Instructions: Pt Stopped/Never Started mometasone 0.1 % topical cream 1 applic topical DAILY PRN skin 01/08/20 Held on 07/31/25. irritation #15 grams Instructions: Pt Stopped/Never Started B complex-C 500 mg-folic 400 1 tab PO DAILY #90 tabs 06/24/24 mcg-zinc 23.9 mg-copper 3 mg-vit E tablet (Stress B-Complex) Held on 07/31/25. Instructions: Pt Stopped/Never Started metformin 500 mg tablet 500 mg PO BID #180 tabs 09/12/24 Held on 07/31/25. Instructions: Pt Stopped/Never Started metoprolol succinate 100 mg 100 mg PO DAILY #90 tabs 09/12/24 tablet,extended release 24 hr Held on 07/31/25. Instructions: Pt Stopped/Never Started semaglutide 2 mg/dose (8 mg/3 mL) 2 mg (0.75 mL) subcut QWEEK #9 mL 09/12/24 subcutaneous pen injector Held on 07/31/25. Instructions: Pt Stopped/Never Started gabapentin 300 mg capsule 300 mg PO BID #180 caps 09/18/24 Held on 07/31/25. Instructions: Pt Stopped/Never Started levothyroxine 88 mcg tablet 88 mcg PO DAILY #90 tabs 09/20/24 Held on 07/31/25. Instructions: Pt Stopped/Never Started lisinopril 40 mg tablet 40 mg PO DAILY #90 tabs 09/20/24 Held on 07/31/25. Instructions: Pt Stopped/Never Started pravastatin 40 mg tablet 40 mg PO DAILY #90 tabs 09/20/24 Held on 07/31/25. Instructions: Pt Stopped/Never Started sildenafil 100 mg tablet 100 mg PO DAILY PRN sexual 06/20/25 Held on 07/31/25. activity #4.0 tabs Instructions: Pt Stopped/Never Started Allergies Allergy/AdvReac Type Severity Reaction Status Date / Time apixaban (From Eliquis) AdvReac Intermediate Swelling/Ed Verified 07/31/25 19:15 caroline zonisamide AdvReac Mild Confusion Verified 07/31/25 19:15 General Stated Complaint: Urinary RADHA: 3 Review of Systems All systems reviewed & are unremarkable except as noted in HPI and below Exam Narrative Exam Narrative: GENERAL APPEARANCE: Well-nourished, toxic, awake and alert, atraumatic, mild acute distress. SKIN: Warm, pink, dry, intact, without rashes/lesions/ulcerations. HEAD: Normocephalic, atraumatic, normal hair distribution for gender/age. EYES: Normal conjunctiva, no exudates on lids/lashes. ENT: Nares patent, no circumoral cyanosis, no facial swelling NECK: Supple, trachea midline, painless cervical ROM. LUNGS/CHEST: Lungs CTA bilaterally- no rhonchi/rales/wheezes diffusely, non-labored respirations, normal A/P diameter, symmetrical expansion, no chest wall deformity HEART (CV/PV): Regular rate and rhythm without murmur, no peripheral edema, no JVD. ABDOMEN: Soft, non-distended, no guarding, L CVA tenderness to percussion, mild suprapubic tenderness MSK: Normal ROM, no swelling/deformity to bilateral UEs or LEs, moving all extremities without weakness, no cyanosis, spine midline without tenderness, normal curvature. NEURO: Mental Status AAOx4 - alert to person, place, time, events No facial droop, no forehead involvement, some wandering/intention tremor during [id number] testing, heel-irving within normal limits, repetitive motions slow Motor: No focal weakness - strength 5/5 in bilateral UEs and LEs, proximal and distal, symmetric. Sensory: sensation intact to light touch globally. Gait unsteady PSYCH: euthymic, cooperative, pleasant, appropriate speech Course Vital Signs Vital signs: Vital Signs Pulse 77 07/31/25 19:08 Respiratory Rate 19 07/31/25 19:08 Blood Pressure 165/87 H 07/31/25 19:08 Pulse Oximetry 95 07/31/25 19:08 Temperature 38.2 C H 07/31/25 19:11 Temperature Source Tympanic 07/31/25 19:11 Pulse 77 07/31/25 19:11 Respiratory Rate 19 07/31/25 19:11 Blood Pressure 165/87 H 07/31/25 19:11 Blood Pressure Position Supine 07/31/25 19:08 Pulse Oximetry 95 07/31/25 19:11 Oxygen Delivery Method Room Air 07/31/25 19:08 Oxygen Flow Rate 0 07/31/25 19:08 Pain Level 7 07/31/25 19:11 Medical Decision Making This dictation utilizes [id number] dictation software and may contain unedited grammatical errors. 70 year-old male presents to ED today by POV/ambulating with his with a chief complaint of dysuria, frequency, urgency, and L flank pain with onset noted today. Quality described as generalized discomfort with urination, no radiation to known fever, nausea, vomiting, chest pain, shortness of breath. Severity is described as moderate. Palliating factors include nothing specific. Provoking factors include nothing specific. Events leading up to the incident/Associated Symptoms: patient has taken a voluntary drug hiatus from all of their medications for 3 days to not overload their system. Later in visit- his notes he's been having gait abnormality and coordination issues- has history of ETOH use problems, and they recently got back from a cruise. Patients' medical history: History of DVT not currently anticoagulated, history of atypical chest pain, status post appendectomy, stage IIIa CKD, sciatica, moderate alcohol use disorder, T2DM, postconcussion syndrome followed by [facility], essential hypertension, anxiety. Family and social history: Endorses still having 2 or 3 drinks, recent travel to the [facility] on a cruise, no drug use, no sick contact. Pertinent exam findings / vital signs include febrile, left CVA tenderness to percussion, lower suprapubic discomfort, nontachycardic, unsteady gait without other signs of dysmetria in FNF or heel-irving, strength 5/5 diffusely, sensation intact, no slurred speech, no facial droop, denies sensory deficits. Differential / pathologies of concern include UTI, renal stone, infected kidney stone, pyelonephritis, alcohol use disorder, stroke or TIA. Diagnostic studies of: - CBC, CMP, lactate, lipase, UA, CT renal colic without, CT head without, EKG. - EKG shows sinus rhythm at 77 bpm with P waves followed by narrow complex QRS with normal axis, PVCs, no T wave inversions and no ST depressions or reciprocal elevations - CT renal shows L hydro- no stone, perinephritic stranding- pyelonephritis w/ fever - CBC shows leukocytosis to 11.6 with left shift - Lactate 1.3 - Lipase within normal limits - CMP shows acutely elevated creatinine of 2.14 indicating it is possible he has an obstructing kidney stone that he passed but there was no stone seen on CT - 10-20 WBCs in his urine is likely source of infection Interventions of: - 1g IV APAP, 15mg IVP ketorolac, 0.4mg PO tamsulosin, 1L IVF NS. - 2gm IV cefepime for pseudomonas coverage pyelonephritis - Dr. Wall will follow with any tele-neuro recommendations. ED Course/Assessment/Plan: 70-year-old male has been having UTI symptoms for the past couple days and has a low-grade fever and 100.8 F, denies any nausea but has been having worse gait abnormalities and coordination issues noted since this past Monday which are concerning for possible stroke or TIA in that time, CT head was performed which shows no acute pathology, non time sensitive teleneuro consult performed for disposition, started on cefepime for pyelo- having patient admitted for pyelo with fever, and for likely MRI tomorrow for his gait disturbances. Dr. Becerra accepts for admission @ [id number] teleneurology pending. Disposition of Pyelonephritis, Gait Abnormality. Patient verbalized understanding of the plan and return to ED criteria and engaged in shared decision making. Medical Records Medical records reviewed: Yes I reviewed the patient's medical records. Imaging Data Radiologic Study: Attestation: I personally reviewed and interpreted this imaging study as follows: Imaging: CT Scan Radiologist's impression: EXAM: CT RENAL COLIC WO CLINICAL HISTORY: L CVA tender to percussion. TECHNIQUE: Imaging Protocol: Axial computed tomography images with coronal and sagittal reformatted images were created and reviewed CONTRAST MATERIAL: Intravenous: none Oral: None COMPARISON: CT CT ABDOMEN PELVIS WO from 03/18/2022 FINDINGS: VISUALIZED LUNG BASES: No nodules nor pleural effusions evident. ABDOMEN: There is no ascites. LIVER: There are no obvious focal hepatic lesions evident of this noninfused study. GALLBLADDER/BILIARY: No obvious gallbladder pathology. CBD is not dilated. PANCREAS: No evidence of pancreatic mass nor dilatation of the pancreatic duct. SPLEEN: Spleen is not enlarged. No obvious intrasplenic lesions. ADRENALS: There is a nodule in the right adrenal gland which measures 1.6 by 1.1 cm, larger than previous. There is also a nodule in the left adrenal gland measuring 1.9 x 0.9 cm, not previously present in March 2022.. KIDNEYS:Right kidney unremarkable. There is again noted a cyst in the posterior cortex of the left kidney measuring 4.5 x 4.3 cm. There are no solid renal masses but there is perinephric streaking now evident around the left kidney as well as mild dilatation streaking around the entire length of the left ureter. There are no radiopaque calculi evident in the dilated ureter nor within the nondistended urinary bladder. There are no radiopaque calculi in the kidneys. There is mild uniform thickening of the urinary bladder wall which may be related to under distension. No solid renal masses. No calculi nor hydronephrosis. . ABDOMINAL AORTA: Abdominal aorta is calcified but not enlarged. The common iliac arteries are also calcified but not enlarged. LYMPH NODES: There is no retroperitoneal nor paraaortic adenopathy. ABDOMINAL WALL: No evidence of significant anterior abdominal wall nor inguinal hernia. GI: Again noted is evidence of prior appendectomy. No evidence of bowel obstruction. There are few sigmoid diverticuli but no diverticulitis in the sigmoid. Also diverticuli in the descending-left colon. There is no colitis pattern. PELVIS: LYMPH NODES: There is no intrapelvic nor inguinal adenopathy. URINARY BLADDER: As above. REPRODUCTIVE: Prostate gland is not enlarged. OSSEOUS: No fractures nor significant osseous lesions. However, there is degenerative anterolisthesis of L4 upon L5. There is partial sacralization of the L5 segment. Advanced facet arthropathy in the lower lumbar spine noted. IMPRESSION: 1. Main findings here are related to the left kidney. There is unilateral left kidney perinephric streaking as well as inflammatory streaking around the entire length of the moderately dilated left ureter. There are no radiopaque calculi seen in the ureter nor within the nondistended urinary bladder. There are no radiopaque calculi in either kidney. Correlation with any history of recent passage of a left-sided calculus recommended. Also consider urinary tract infection. 2. There is diverticulosis of the left side of the colon and sigmoid but no evidence of acute diverticulitis. 3. Appendix is noted to be surgically absent. No evidence of bowel obstruction. Osseous findings as above Port called by myself to ER provider 07/31/2025 at 8:20 p.m. Radiologic Study #2: Attestation: I personally reviewed and interpreted this imaging study as follows: Imaging: CT Scan My impression: No stroke seen on my read, official read pending. Lab Data Lab results reviewed: Yes I reviewed the patient's lab results. Labs: 07/31/25 20:00 Urine - Reflex from Ua Urine Culture - Pending Laboratory Tests Range/Units 07/31/25 07/31/25 20:00 20:15 WBC (4.4-10.8) 10^3/uL 11.68 H RBC (4.36-5.78) 10^6/uL 3.54 L Hgb (13.5-17.5) g/dL 11.1 L Hct (40.0-50.0) % 31.8 L MCV (80-95) fL 90 MCH (27.0-33.0) pg 31.4 MCHC (32.0-36.0) % 34.9 RDW (11.8-14.1) % 12.1 Plt Count (130-400) 10^3/uL 227 MPV (8.0-11.0) fL 10.8 Immature Gran % % 1.2 Neutrophils % % 79.2 Lymphocytes % % 8.6 Monocytes % % 10.5 Eosinophils % % 0.1 Basophils % % 0.4 Nucleated RBC % (0.0-0.3) % 0.0 Absolute Neutrophils (1.2-6.7) 10^3/uL 9.25 H Absolute Lymphocytes (1.2-3.4) 10^3/uL 1.00 L Absolute Monocytes (0.1-0.8) 10^3/uL 1.23 H Absolute Eosinophils (0.0-0.7) 10^3/uL 0.01 Absolute Basophils (0.0-0.2) 10^3/uL 0.05 VBG Lactate (<or=2.0) mmol/L 1.3 Sodium (136-145) mmol/L 131 L Potassium (3.5-5.1) mmol/L 3.9 Chloride (98-107) mmol/L 97 L Carbon Dioxide (20.0-31.0) mmol/L 24.5 Anion Gap (3-11) mmol/L 9.9 BUN (9-23) mg/dL 44 H Creatinine (0.73-1.18) mg/dL 2.14 H Est GFR (CKD-EPI 2020) (mL/min/1.73m2) 30.50 Glucose (74-106) mg/dL 125 H Calcium (8.3-10.6) mg/dL 8.3 Total Bilirubin (0.2-1.2) mg/dL 0.7 AST (<34) U/L 117 H ALT (10-49) U/L 112 H Alkaline Phosphatase (46-116) U/L 72 Total Protein (5.7-8.2) g/dL 7.1 Albumin (3.2-5.0) g/dL 4.0 Lipase (<53) U/L 28 Urine Color (Yellow) Yellow Urine Clarity (Clear) Clear Urine pH (5-8) 5.5 Ur Specific Marion (1.005-1.025) 1.015 Urine Protein (Neg-Trace) mg/dL >=300 H Urine Ketones (Negative) mg/dL Trace H Urine Blood (Negative) Moderate H Urine Nitrite (Negative) Negative Urine Bilirubin (Negative) Negative Urine Urobilinogen (Up to 0.2) mg/dL 0.2 Ur Leukocyte Esterase (Negative) Small H Urine RBC (0-2) HPF 5-10 H Urine WBC (0-5) HPF 10-20 H Ur Epithelial Cells (Negative) HPF Few Urine Crystals (Negative) HPF Negative Urine Bacteria (Negative) HPF Few Urine Casts (Negative) LPF Negative Urine Mucus (Negative) Negative Ur Culture Indicated? 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) Mild, followed by [facility] Patellar tendinitis, left knee (Chronic) Left anterior knee pain (Chronic) Type 2 diabetes mellitus with diabetic neuropathy, unspecified (Chronic) Sensorineural hearing loss, bilateral (Chronic 07/16/15) has hearing aids Postconcussion syndrome (Chronic 12/25/13) managed at [facility] Hypothyroidism (Chronic 12/24/12) Hyperlipidemia (Chronic 12/24/12) Essential hypertension (Chronic 08/30/13) Anxiety (Chronic 12/20/11) s/p concussion Medical History Deep venous thrombosis of left peroneal vein (~07/2022) managed with 3 mos of xarelto COVID-19 12/01/21, URI symptoms; 03/2023 Atypical chest pain 2019-negative ETT History of tobacco use quit 2013 Allergic rhinitis Surgical History History of colonoscopy (~09/2024) S/P Achilles tendon repair S/P carpal tunnel release S/P cubital tunnel release S/P tonsillectomy and adenoidectomy S/P appendectomy History of carpal tunnel surgery bilat Family History Mother , age 90 Essential hypertension Breast cancer Father , age 85 Essential hypertension Heart disease MURMUR Hyperlipidemia Sister Blood glucose abnormal Sister Graves' disease Essential hypertension Hyperlipidemia Sister Heart disease MURMUR Sister Heart disease MURMUR Brother Stroke Maternal Grandfather No problems noted. Paternal Grandfather Heart disease Maternal Grandmother No problems noted. Paternal Grandmother Heart disease Son Essential hypertension Daughter No problems noted. Maternal Uncle Leukemia Social History Smoking/Tobacco Use Status: Former Tobacco Use tobacco type: cigarettes and cigars Quit Date: 08/07/13 Tobacco: How many years used: 10 Quit status: has quit before Second Hand Exposure: Yes Smoking risk assessment performed?: Yes Alcohol Intake: current Alcohol Intake frequency: a few times a week Alcohol type: beer, wine and hard liquor Drug use: Daily Substance use type: marijuana and other Details: edibles Adopted: No Caregiver/Support person: No Foster care: No Household members: spouse Housing: house Number of Children: 2 Communication Needs: Hard of Hearing and Corrective Lenses Education Level: college Do you need help understanding health information?: Rarely current occupation: Retired [employer] at [employer] Pets and animals: Yes Pets and animals: cat(s) Sexually active: Yes Do you think of yourself as: straight/heterosexual Current gender identity: male What is your relationship status?: How often do you talk on the phone with friends or family?: once per week How often do you get together with friends or relatives?: once per week Do you belong to any clubs or organized social groups?: no Panel score (0-1 are the most socially isolated patients): 1 What type of physical activity do you participate in: walking Duration: 60-90 minutes/day Frequency: 1-2 times per week Na/Sabianist: None Special na needs: No Agree to transfusion: Yes Seatbelt use: always Helmet use: Yes Helmet use: always Drive intox or ride w/intox bus van driver: No Working smoke detector in home: Yes Carbon monox detector in home: Yes Firearms in home: No Do you feel safe at home: Yes Do you feel safe in your relationship?: Yes Victim of physical abuse: No Victim of emotional abuse: No Victim of sexual abuse: No
--- NOTE | 2025-07-31 19:45 | DI.CT_ITS ---
Exam(s) CT RENAL COLIC WO EXAM: CT RENAL COLIC WO CLINICAL HISTORY: L CVA tender to percussion. TECHNIQUE: Imaging Protocol: Axial computed tomography images with coronal and sagittal reformatted images were created and reviewed CONTRAST MATERIAL: Intravenous: none Oral: None COMPARISON: CT CT ABDOMEN PELVIS WO from 03/18/2022 FINDINGS: VISUALIZED LUNG BASES: No nodules nor pleural effusions evident. ABDOMEN: There is no ascites. LIVER: There are no obvious focal hepatic lesions evident of this noninfused study. GALLBLADDER/BILIARY: No obvious gallbladder pathology. CBD is not dilated. PANCREAS: No evidence of pancreatic mass nor dilatation of the pancreatic duct. SPLEEN: Spleen is not enlarged. No obvious intrasplenic lesions. ADRENALS: There is a nodule in the right adrenal gland which measures 1.6 by 1.1 cm, larger than previous. There is also a nodule in the left adrenal gland measuring 1.9 x 0.9 cm, not previously present in March 2022.. KIDNEYS:Right kidney unremarkable. There is again noted a cyst in the posterior cortex of the left kidney measuring 4.5 x 4.3 cm. There are no solid renal masses but there is perinephric streaking now evident around the left kidney as well as mild dilatation streaking around the entire length of the left ureter. There are no radiopaque calculi evident in the dilated ureter nor within the nondistended urinary bladder. There are no radiopaque calculi in the kidneys. There is mild uniform thickening of the urinary bladder wall which may be related to under distension. No solid renal masses. No calculi nor hydronephrosis. . ABDOMINAL AORTA: Abdominal aorta is calcified but not enlarged. The common iliac arteries are also calcified but not enlarged. LYMPH NODES: There is no retroperitoneal nor paraaortic adenopathy. ABDOMINAL WALL: No evidence of significant anterior abdominal wall nor inguinal hernia. GI: Again noted is evidence of prior appendectomy. No evidence of bowel obstruction. There are few sigmoid diverticuli but no diverticulitis in the sigmoid. Also diverticuli in the descending-left colon. There is no colitis pattern. PELVIS: LYMPH NODES: There is no intrapelvic nor inguinal adenopathy. URINARY BLADDER: As above. REPRODUCTIVE: Prostate gland is not enlarged. OSSEOUS: No fractures nor significant osseous lesions. However, there is degenerative anterolisthesis of L4 upon L5. There is partial sacralization of the L5 segment. Advanced facet arthropathy in the lower lumbar spine noted. IMPRESSION: 1. Main findings here are related to the left kidney. There is unilateral left kidney perinephric streaking as well as inflammatory streaking around the entire length of the moderately dilated left ureter. There are no radiopaque calculi seen in the ureter nor within the nondistended urinary bladder. There are no radiopaque calculi in either kidney. Correlation with any history of recent passage of a left-sided calculus recommended. Also consider urinary tract infection. 2. There is diverticulosis of the left side of the colon and sigmoid but no evidence of acute diverticulitis. 3. Appendix is noted to be surgically absent. No evidence of bowel obstruction. Osseous findings as above Port called by myself to ER provider 07/31/2025 at 8:20 p.m. RADIATION DOSE DELIVERED: 630.68mGy.cm Total DLP DATA REPOSITORY: All CT scans at this facility are submitted to the National Radiology Data Registry (NRDR) Dose Index Registry (DIR) with the [employer] ([employer]). RADIATION OPTIMIZATION: All CT scans at this facility use at least one of these dose optimization techniques: automated exposure control; mA and/or kV adjustment per patient size (includes targeted exams where dose is matched to clinical indication); or iterative reconstruction.
--- NOTE | 2025-07-31 19:45 | RT.EKG_ITS ---
APPROVED REPORT Exam: Resting ECG Reason for Exam: baseline/screening Patient Location: E HR:77 bpm ECG Measurements Heart Rate 77 AXIS ID 156 P 41 QRSd 94 QRS -37 QT 377 T 11 QTc 428 Conclusion Sinus rhythm...normal P axis, V-rate 60- 99 Multiple ventricular premature complexes...V complexes w/ short R-R intervls Inferior infarct, old...Q >35mS, II III aVF No STEMI
--- NOTE | 2025-07-31 19:53 | DI.CT_ITS ---
Exam(s) CT HEAD WO EXAM: CT HEAD WO CLINICAL HISTORY: gait abnormality since monday. TECHNIQUE: Imaging Protocol: Axial computed tomography images with coronal and sagittal reformatted images were created and reviewed COMPARISON: No exams were available for comparison FINDINGS: There are no skull fractures. There is no fluid in the visualized paranasal sinuses. There is no evidence of intracranial hemorrhage, mass effect, or shift of midline structures. There are no extra-axial fluid collections. The ventricles are not enlarged or shifted and there is no blood within the ventricular system nor within the basal cisterns. IMPRESSION: No acute intracranial findings on this noninfused CT scan of the brain. Given history here if clinically indicated follow-up MRI with diffusion imaging can be performed for added sensitivity and specificity. Preliminary V rad report was reviewed. RADIATION DOSE DELIVERED: 1,024.15mGy.cm Total DLP DATA REPOSITORY: All CT scans at this facility are submitted to the National Radiology Data Registry (NRDR) Dose Index Registry (DIR) with the [employer] ([employer]). RADIATION OPTIMIZATION: All CT scans at this facility use at least one of these dose optimization techniques: automated exposure control; mA and/or kV adjustment per patient size (includes targeted exams where dose is matched to clinical indication); or iterative reconstruction.
[2025-07-31] MEDS: Tamsulosin 0.4 MG CAPCR PO (19:56)
[2025-07-31] MEDS: Ketorolac 15 MG/ML VIAL IVP (20:18)
[2025-07-31] MEDS: Normal Saline 1,000 ML 1000 ML IV (20:24)
[2025-07-31 20:30] LABS: Abs Immature Grans 0.14 10^3/uL (0.0-0.06); HCT 31.8 % (40.0-50.0); HGB 11.1 g/dL (13.5-17.5); Immature Grans % 1.2 %; MCH 31.4 pg (27.0-33.0); MCHC 34.9 % (32.0-36.0); MCV 90 fL (80-95); MPV 10.8 fL (8.0-11.0); Platelet Count 227 10^3/uL (130-400); RBC 3.54 10^6/uL (4.36-5.78); RDW 12.1 % (11.8-14.1); RDW-SD 40.4 fL; WBC 11.68 10^3/uL (4.4-10.8)
[2025-07-31] MEDS: ACETAMINOPHEN 1,000 MG/100 ML BAG 400 MG IVPB (20:30)
[2025-07-31 20:44] LABS: Glucose Negative (Negative)
[2025-07-31] MEDS: CEFEPIME 2 GM in Normal Saline 100 ML IVPB (20:48)
[2025-07-31 20:52] LABS: C & S Indicated? Yes
[2025-07-31 20:52] LABS: Lipase 28 U/L (<53)
[2025-07-31 20:53] LABS: ALT 112 U/L (10-49); AST 117 U/L (<34); Albumin 4.0 g/dL (3.2-5.0); Alkaline Phosphatase 72 U/L (46-116); Anion Gap 9.9 mmol/L (3-11); BUN 44 mg/dL (9-23); Bilirubin, Total 0.7 mg/dL (0.2-1.2); CO2 24.5 mmol/L (20.0-31.0); Calcium 8.3 mg/dL (8.3-10.6); Chloride 97 mmol/L (98-107); Glucose 125 mg/dL (74-106); Potassium 3.9 mmol/L (3.5-5.1); Sodium 131 mmol/L (136-145); Total Protein 7.1 g/dL (5.7-8.2)
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
--- NOTE | 2025-07-31 21:05 | DI.VRAD_ITS ---
PROCEDURE INFORMATION: Exam: CT Head Without Contrast Exam date and time: 07/31/2025 8:17 PM Age: 70 years old Clinical indication: Other: Gait abnormality since Monday TECHNIQUE: Imaging protocol: Computed tomography of the head without contrast. Radiation optimization: All CT scans at this facility use at least one of these dose optimization techniques: automated exposure control; mA and/or kV adjustment per patient size (includes targeted exams where dose is matched to clinical indication); or iterative reconstruction. COMPARISON: No relevant prior studies available. FINDINGS: Brain: No acute intracranial hemorrhage or mass lesions. No midline shift. Normal simon-white differentiation. There are mild scattered deep and periventricular white matter changes likely associated with chronic microvascular ischemia. Cerebral ventricles: No ventriculomegaly. Paranasal sinuses: Visualized sinuses are unremarkable. No fluid levels. Mastoid air cells: Visualized mastoid air cells are well aerated. Bones: Unremarkable. No acute fracture. Soft tissues: Unremarkable. IMPRESSION: No acute intracranial findings. Dictated and Authenticated by: Bina Kerr MD. Orderin Spencer Hernandez MD
[2025-07-31 21:58] LABS: Magnesium 2.0 mg/dL (1.6-2.6)
--- NOTE | 2025-07-31 22:44 | ED.PROG_ITS ---
Date of service: 07/31/25 Time of Service: 22:44 Medical Decision Making Case was discussed with me by David Palmer. Please refer to his HPI, physical exam, assessment and plan. At time of signout patient was already admitted to the hospitalist service. However we are still awaiting callback from [facility]. I discussed the case with the neurologist Dr. Espinoza, and he recommends treating what he believes to be the primary source of his symptoms which is a pyelonephritis, however he also recommends further evaluation with an MRI of the brain, cervical thoracic and lumbar spine. He recommends that if this patient's symptoms do not improve with treatment of the pyelonephritis, and the patient has negative MRI findings then he will need to be seen by formal neurologist for further diagnostic testing. No other recommendations. Additionally CT imaging shows no acute intracranial process per radiology, and there is evidence of notable pyelonephritis for the kidney on the left. Discussed this with the hospitalist Dr. Becerra. He is aware of these findings. Patient will be admitted. FINDINGS: Brain: No acute intracranial hemorrhage or mass lesions. No midline shift. Normal simon-white differentiation. There are mild scattered deep and periventricular white matter changes likely associated with chronic microvascular ischemia. Cerebral ventricles: No ventriculomegaly. Paranasal sinuses: Visualized sinuses are unremarkable. No fluid levels. Mastoid air cells: Visualized mastoid air cells are well aerated. Bones: Unremarkable. No acute fracture. Soft tissues: Unremarkable. IMPRESSION: No acute intracranial findings. Thank you for allowing us to participate in the care of your patient. Dictated and Authenticated by: Bina Kerr MD FINDINGS: VISUALIZED LUNG BASES: No nodules nor pleural effusions evident. ABDOMEN: There is no ascites. LIVER: There are no obvious focal hepatic lesions evident of this noninfused study. GALLBLADDER/BILIARY: No obvious gallbladder pathology. CBD is not dilated. PANCREAS: No evidence of pancreatic mass nor dilatation of the pancreatic duct. SPLEEN: Spleen is not enlarged. No obvious intrasplenic lesions. ADRENALS: There is a nodule in the right adrenal gland which measures 1.6 by 1.1 cm, larger than previous. There is also a nodule in the left adrenal gland measuring 1.9 x 0.9 cm, not previously present in March 2022.. KIDNEYS:Right kidney unremarkable. There is again noted a cyst in the posterior cortex of the left kidney measuring 4.5 x 4.3 cm. There are no solid renal masses but there is perinephric streaking now evident around the left kidney as well as mild dilatation streaking around the entire length of the left ureter. There are no radiopaque calculi evident in the dilated ureter nor within the nondistended urinary bladder. There are no radiopaque calculi in the kidneys. There is mild uniform thickening of the urinary bladder wall which may be related to under distension. No solid renal masses. No calculi nor hydronephrosis. . ABDOMINAL AORTA: Abdominal aorta is calcified but not enlarged. The common iliac arteries are also calcified but not enlarged. LYMPH NODES: There is no retroperitoneal nor paraaortic adenopathy. ABDOMINAL WALL: No evidence of significant anterior abdominal wall nor inguinal hernia. GI: Again noted is evidence of prior appendectomy. No evidence of bowel obstruction. There are few sigmoid diverticuli but no diverticulitis in the sigmoid. Also diverticuli in the descending-left colon. There is no colitis pattern. PELVIS: LYMPH NODES: There is no intrapelvic nor inguinal adenopathy. URINARY BLADDER: As above. REPRODUCTIVE: Prostate gland is not enlarged. OSSEOUS: No fractures nor significant osseous lesions. However, there is degenerative anterolisthesis of L4 upon L5. There is partial sacralization of the L5 segment. Advanced facet arthropathy in the lower lumbar spine noted. IMPRESSION: 1. Main findings here are related to the left kidney. There is unilateral left kidney perinephric streaking as well as inflammatory streaking around the entire length of the moderately dilated left ureter. There are no radiopaque calculi seen in the ureter nor within the nondistended urinary bladder. There are no radiopaque calculi in either kidney. Correlation with any history of recent passage of a left-sided calculus recommended. Also consider urinary tract infection. 2. There is diverticulosis of the left side of the colon and sigmoid but no evidence of acute diverticulitis. 3. Appendix is noted to be surgically absent. No evidence of bowel obstruction. Osseous findings as above Discharge Plan Disposition Patient Disposition: Admit to [facility] Condition: Stable Discharge Details Clinical Impression: Acute pyelonephritis, Gait abnormality Admit Date/Time: 07/31/25 21:33 Admit Provider: Davonte Becerra Attending Provider: Davonte Becerra Primary Care Provider: Nany Mao ED Provider: David Palmer
[2025-07-31 23:03] LABS: COVID-19 PCR Negative (Negative); RSV PCR Negative (Negative)
[2025-08-01] VITALS (7 sets, daily range): BP systolic 120–156; BP diastolic 70–85; PULSE 60–75; RESP 16–18; TEMP 36.4–37; O2SAT 92–100
[2025-08-01] MEDS: Thiamine 100 MG TAB PO ×2 (00:11→07:54)
[2025-08-01] MEDS: Aspirin 325 MG TAB PO (00:12)
[2025-08-01] MEDS: Pravastatin 40 MG TAB PO ×2 (00:12→20:55)
[2025-08-01 00:26] LABS: TSH (W/Ref FT4) 1.55 uIU/mL (0.55-4.78)
[2025-08-01 01:09] LABS: Cannabinoids THC Positive (Negative)
[2025-08-01] MEDS: Normal Saline 1,000 ML 150 ML IV ×3 (04:03→21:03)
[2025-08-01] MEDS: Acetaminophen 325 MG TAB 650 MG PO ×2 (04:04→21:04)
[2025-08-01] MEDS: Levothyroxine 88 MCG TAB PO (06:14)
[2025-08-01] MEDS: Heparin 5,000 UNITS/ML VIAL 5000 UNITS SC ×3 (06:14→21:05)
[2025-08-01 06:39] LABS: Abs Immature Grans 0.09 10^3/uL (0.0-0.06); HCT 34.6 % (40.0-50.0); HGB 11.9 g/dL (13.5-17.5); Immature Grans % 0.7 %; MCH 31.4 pg (27.0-33.0); MCHC 34.4 % (32.0-36.0); MCV 91 fL (80-95); MPV 10.6 fL (8.0-11.0); Platelet Count 218 10^3/uL (130-400); RBC 3.79 10^6/uL (4.36-5.78); RDW 12.5 % (11.8-14.1); RDW-SD 41.8 fL; WBC 12.60 10^3/uL (4.4-10.8)
[2025-08-01 06:48] LABS: INR 1.1 (0.9-1.1); Prothrombin Time 10.5 sec (9.1-11.1)
[2025-08-01 06:56] LABS: Troponin I 16 ng/L (<54)
[2025-08-01 06:59] LABS: ALT 113 U/L (10-49); AST 91 U/L (<34); Albumin 3.8 g/dL (3.2-5.0); Alkaline Phosphatase 80 U/L (46-116); Anion Gap 10.3 mmol/L (3-11); BUN 44 mg/dL (9-23); Bilirubin, Total 0.7 mg/dL (0.2-1.2); CO2 24.2 mmol/L (20.0-31.0); Calcium 8.1 mg/dL (8.3-10.6); Chloride 98 mmol/L (98-107); Glucose 153 mg/dL (74-106); Potassium 3.6 mmol/L (3.5-5.1); Sodium 133 mmol/L (136-145); Total Protein 7.0 g/dL (5.7-8.2)
[2025-08-01] MEDS: Metoprolol 50 MG TAB PO ×2 (07:53→20:55)
[2025-08-01] MEDS: Lisinopril 20 MG TAB PO (07:53)
[2025-08-01] MEDS: Aspirin 81 MG CHEW PO (07:53)
[2025-08-01] MEDS: Gabapentin 300 MG CAP PO ×2 (07:53→20:55)
[2025-08-01] MEDS: Tamsulosin 0.4 MG CAPCR PO (07:53)
[2025-08-01] MEDS: DULoxetine 30 MG CAP 60 MG PO (07:53)
[2025-08-01] MEDS: Multivitamin TAB 1 TAB PO (07:54)
--- NOTE | 2025-08-01 08:00 | DI.MRI_ITS ---
Exam(s) MR THORACIC SPINE WO EXAM: MR THORACIC SPINE WO CLINICAL HISTORY: Recent onset unstable gait with a negative CT head TECHNIQUE: Multiplanar multisequence MRI of the thoracic spine was performed without intravenous contrast. COMPARISON: No exams were available for comparison FINDINGS: OSSEOUS: There are no thoracic vertebral fractures. There is signal abnormality in the anterior aspect of the T6 vertebral body which has the appearance probable benign hemangioma. And smaller meningioma is noted in the posterior aspect T5 vertebral body. Another is evident in T10 vertebral body. Another evident in T12 vertebral body. THORACIC SPINAL CORD: There is no abnormal signal in the cervical spinal cord and no evidence of focal cord atrophy nor focal cord swelling. There is no evidence of syringomyelia nor significant spinal cord dysraphism. There is no evidence of mass at the conus medullaris. The position of the conus medullaris is at T12-L1 level. SIGNIFICANT INDIVIDUAL LEVEL FINDINGS: There are no significant disc herniations. No central spinal canal stenosis evident. No foraminal stenosis. PARASPINAL TISSUES: No significant masses nor fluid collections evident. IMPRESSION: 1. No evidence of vertebral fractures nor disc herniations nor thoracic spinal canal stenosis and there is no foraminal stenosis in the thoracic spinal column. 2. 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 DATA REPOSITORY:
--- NOTE | 2025-08-01 08:00 | DI.MRI_ITS ---
Exam(s) MR BRAIN WO EXAM: MR BRAIN WO CLINICAL HISTORY: Recent onset unstable gait with a negative CT head TECHNIQUE: Multiplanar multisequence MRI of the brain was performed. COMPARISON: No exams were available for comparison FINDINGS: CEREBRAL PARENCHYMA: There is no evidence of intracranial hemorrhage, mass effect, or shift of midline structures. There are no extra-axial fluid collections. Ventricles are not enlarged or shifted. There is no significant focal signal abnormality in the cerebellar hemispheres. There is some increased signal evident in the central meri, not associated with hemorrhage, surrounding edema nor restricted diffusion. No abnormal signal in the midbrain and thalami and minimal if any significant periventricular signal abnormality. There are no areas of restricted diffusion to suggest acute ischemic event. PITUITARY GLAND: No mass nor parasellar abnormality. No obvious abnormality in the cavernous sinuses. FLOW VOIDS: There is absence of flow void in the left vertebral artery at the skull base. The right vertebral artery is dominant and sole contributor to the formation of the basilar artery at the skull base. There are posterior communicating arteries noted on both sides the [id number]. PARANASAL SINUSES: The visualized paranasal sinuses appear unremarkable. No obvious finding ORBITS: No obvious findings. IMPRESSION: The left vertebral artery at the skull base is not visualized, possibly related to occlusion of this vessel in the neck. The right vertebral artery is dominant and the sole contributor to formation of the basilar artery at the skull base recommend follow-up CT angiography. There is some FLAIR bright signal abnormality at the mid level of the meri, not associated with hemorrhage, surrounding edema, nor restricted diffusion. Chronic ischemic changes at this level. DATA REPOSITORY:
--- NOTE | 2025-08-01 08:00 | DI.MRI_ITS ---
Exam(s) MR LUMBAR SPINE WO EXAM: MR LUMBAR SPINE WO CLINICAL HISTORY: Recent onset unstable gait with a negative CT head. TECHNIQUE: Multiplanar multisequence MRI of the Lumbar spine was performed. COMPARISON: MR MR THORACIC SPINE WO from 08/01/2025 FINDINGS: Images of the study are degraded by motion artifact. Conus medullaris is at normal level. There is no evidence of conus mass nor subjacent clumping of intrathecal nerve roots to suggest arachnoiditis. The distal thecal sac appears unremarkable.There is no evidence of Tarlov intrasacral cysts nor other significant findings within the sacral canal Bones:There are no fractures nor ominous osseous lesions in the lumbar vertebral bodies and visualized sacrum. Benign intraosseous hemangioma is noted in the T12 vertebral body. With respect to the individual levels... T12-L1: Chronic decreased disc height and signal. There is annular bulging without an obvious disc herniation. Central canal dimensions are lower normal. Mild bilateral foraminal stenosis. L1-2: Normal disc height. There is mild concavity of the superior endplate of L2 without bone edema. Posteriorly at this level there is no significant disc herniation. Central canal dimensions are lower normal. Mild facet arthropathy. Moderate bilateral foraminal stenosis. L2-3: Normal disc height. Mild concavity of superior endplate of L3 also noted. No associated bone edema. Posteriorly a there is mild annular bulging without a dominant disc herniation. The annular bulging extends into the exiting left neural foramen. There is mild-moderate central spinal canal stenosis related to short AP dimensions of the pedicles and the mild annular bulging as well as mild degenerative changes in both facet joints. No significant foraminal stenosis. L3-4: Preserved disc height. Mild concavity of the inferior endplate of L3 noted. Posteriorly there is broad symmetrical annular bulging without a prominent focal disc herniation. There is moderate central spinal canal stenosis. The annular bulging extends into the floor both exiting neural foramina. There is mild bilateral foraminal stenosis. Facet joints at this level exhibit mild degenerative changes. L4-5: There is relatively preserved disc height but there is degenerative anterolisthesis of L4 upon L5, with approximately 9 mm anterior slippage of L4 upon L5 related to facet arthropathy. There is typical pseudo herniation of the annulus. There is also a a right sided annular tear at this level, best seen on the sagittal images. There is, however, no obvious additional disc herniation at this level. There is mild central canal stenosis. There is an element of bilateral foraminal stenosis with impingement of the exiting nerve roots bilaterally between the underlying pseudo herniation of the L4-5 annulus and the overlying L4 pedicles. L5-S1: Rudimentary disc space at this level, most probably related to sacralization of the L5 segment. There is no disc herniation at this level and central canal dimensions are within normal limits. Facet arthropathy is minimal. No evidence of foraminal stenosis. Soft tissues: paraspinal soft tissues appear unremarkable. IMPRESSION: 1. Multilevel findings as described individually above 2. There is degenerative anterolisthesis of L4 upon L5 related to facet arthropathy. There is a right-sided annular tear at this level noted but without a distinct focal disc herniation at the level the tear. There is mild central canal stenosis and there is bilateral foraminal stenosis at this level with mild-moderate impingement of the exiting bilateral nerve roots at this level between the overlying L4 pedicles and the underlying L4-5 annulus. 3. Other findings as described per individual level above. DATA REPOSITORY:
--- NOTE | 2025-08-01 08:00 | DI.MRI_ITS ---
Exam(s) MR CERVICAL SPINE WO EXAM: MR CERVICAL SPINE WO CLINICAL HISTORY: Gait abnormalities acute onset TECHNIQUE: Multiplanar multisequence MRI of the cervical spine was performed without intravenous contrast. COMPARISON: MR MR BRAIN WO from 08/01/2025 FINDINGS: CERVICOMEDULLARY JUNCTION: Intact with no evidence of cerebellar tonsillar ectopia. No obvious abnormality of the odontoid process. No evidence of Chiari 1 malformation. CERVICAL SPINAL CORD: There is no abnormal signal in the cervical spinal cord and no evidence of focal cord atrophy nor focal cord swelling. OSSEOUS:There are no cervical fractures evident. No significant osseous lesions in the cervical vertebrae. INDIVIDUAL LEVELS: C2-3: No disc herniation nor central canal stenosis. No foraminal stenosis. There are significant degenerative changes in the left facet joint with mild- moderate left foraminal stenosis.. Right facet joint appears unremarkable and there is no foraminal stenosis on the right side at this level. C3-4: Normal disc height. However, there is a posterolateral left disc protrusion which extends posteriorly 3 mm and is approximately 8 mm wide, indenting the anterior left side of the thecal sac at this level.There is significant left-side facet arthropathy at this level and element of left-sided foraminal stenosis. There is no facet arthropathy on the right side nor foraminal stenosis on the right side at this level. C4-5: This level exhibits chronic advanced disc space narrowing and anterior osteophytes. Posteriorly there is mild symmetrical annular bulging without a dominant disc herniation. Central canal dimensions are lower normal. Facet joints appear unremarkable. No foraminal stenosis on the left side but there is significant foraminal stenosis on the right side at this level. C5-6: This level exhibits chronic disc space narrowing. There are no disc herniations. Central canal dimensions are lower normal. Facet joints appear relatively unremarkable. No foraminal stenosis on the left side. There is an element of foraminal stenosis on the right side which appears to be related to small right-sided Luschka joint osteophyte. C6-7: Normal disc height and signal. Mild annular bulging without a focal disc herniation. Central canal dimensions are lower normal. There are no Luschka joint osteophytes. There are only minimal facet arthropathy changes and no foraminal stenosis on either side at this level. C7-T1: No disc herniation nor central canal stenosis. No facet arthropathy.No foraminal stenosis. IMPRESSION: 1. At C3-4 level there is a posterolateral left disc protrusion which indents the anterior left side of the thecal sac and there is asymmetric left-sided for facet arthropathy also evident at this level and left-sided foraminal stenosis. There is no foraminal stenosis on the right side at this level. 2. At C4-5 level there is significant foraminal stenosis on the right side. 3. At C5-6 level there is foraminal stenosis on the right side There is no abnormal signal in the cervical spinal cord. DATA REPOSITORY:
[2025-08-01] MEDS: cefTRIAXone 1 GM/50 ML BAG IVPB (08:04)
--- NOTE | 2025-08-01 09:00 | DI.US_ITS ---
Exam(s) US CAROTID EXAM: US CAROTID CLINICAL HISTORY: Recent onset unstable gait with negative CT head. TECHNIQUE: Ultrasound carotids performed using grayscale, color-flow, and spectral Doppler imaging. COMPARISON: US US LOWER EXTREMITY VENOUS LT from 03/28/2023 MR MR BRAIN WO from 08/01/2025 FINDINGS: CAROTID ARTERIES: There is a small focal area plaque at mid right common carotid artery level, not associated with abnormal velocities. Estimated at less than 10 percent stenosis. At the level the right carotid bulb and proximal ICA there is some plaque also evident but without associated abnormal elevated velocities. No abnormal velocities evident in the mid and distal right ICA in the neck. On the left side there is also some plaque evident in the mid common carotid artery level, predominantly noncalcified plaque with approximately 30-35 percent stenosis at this level. At the left carotid bifurcation there is a small amount of plaque on the lateral wall, without elevated velocities. Also mild plaque evident in the proximal left ICA. No elevated velocities at this level. Minimal plaque seen above this level in the mid and distal left ICA in the neck. VERTEBRAL ARTERIES: Antegrade flow is demonstrated in the right vertebral artery. Flow in left vertebral artery was difficult to demonstrate, this suspicious for possible occlusion. Measurements: R Bulb: 64cm/s PS / 24.7cm/s ED R CCA: 58.1cm/s PS / 17.8cm/s ED R ECA: 74.6cm/s PS / 8.3cm/s ED R ICA Prox: 83cm/s PS / 27.2cm/s ED R ICA Mid: 93.6cm/s PS / 37.8cm/s ED R ICA Distal: 104.3cm/s PS /38.5cm/s ED R Vert: 90.5cm/s PS / 34.2cm/s ED R SVR: 1.8 R DVR: 2.2 L Bulb: 76.3cm/s PS / 18cm/s ED L CCA: 97cm/s PS / 24.5cm/s ED L ECA: 125.8cm/s PS / 0cm/s ED L ICA Prox: 114.7cm/s PS / 29.8cm/s ED L ICA Mid: 91.6cm/s PS / 29.8cm/s ED L ICA Distal: 90.4cm/s PS / 29.8cm/s ED L Vert: PS / ED L SVR: 1.2 L DVR: 1.2 IMPRESSION: There is plaque evident in the common carotid arteries and carotid bulbs and proximal ICAs bilaterally but without elevated velocities indicating amount of stenosis is less than 50 percent bilaterally. There is lack of flow demonstrated in the left vertebral artery, concerning for thrombosis or dissection/occlusion of this vessel. The right vertebral artery is patent. Recommend follow-up CT angiography. Criteria for Carotid Stenosis: Normal: ICA PSV <125 cm/s no plaque or intimal thickening is visible. <50% stenosis: ICA PSV <125 cm/s and plaque or intimal thickening is visible. 50-69% stenosis: ICA PSV is 125-250 cm/s and plaque is visible. >70% stenosis to near occlusion: ICA PSV >250 cm/s with visible plaque and luminal narrowing. DATA REPOSITORY:
--- NOTE | 2025-08-01 09:52 | PDOC.CMIN ---
Date of service: 08/01/25 Time of Service: 09:52 Care Management Initial Assmt Initial Assessment Reason for Hospitalization: acute pyelonephritis Functional Status/Living Situation Town of Residence: [facility] Resides with: Spouse ([place]) Instrumental Activities of Daily Living (ADLs): Independent Medications Medication Management: No Issues/Barriers identified Advance Directives Advance Directives: Do you have an Advance Directive: Y 09/20/24, 07:[address] [facility]: Y 09/20/24, 07:28 Date Asked 11/22/17 09/20/24, 07:28 AD Date Reviewed 07/31/25 Today, 08:25 [address] [facility] COLST Date Scanned Code Status Resuscitation Status Full Code Insurance Coverage/Financial Issues Insurance: Medicare A[employer]na Senior Supplement Care Team Visit Care Team Role Provider Type Maurisio Gold MD MD [facility] STAFF PHYSICIAN Nany Mao MD Primary Care Provider [facility] STAFF PHYSICIAN Macie Floyd RDN, [facility] Other Providers CARDIAC CATH LAB RADIOLOGY TECHNOLOGIST Jorge Lynn Other Providers OTHER Rob Winston RDN Other Providers CARDIAC CATH LAB RADIOLOGY TECHNOLOGIST MELODY Jeter Emergency Provider PHYSICIANS TOOL GRINDER OPERATOR EXTERNAL Davonte Becerra Admit Provider NON-[facility] STAFF PHYSICIAN Attending Provider Discharge Potential Discharge Needs: PCP F/U Appt and Other (Neurology) Anticipated Barriers to Discharge: None Identified Patient/Family Education Needs: Review discharge instructions, discuss Ask Me Three Transportation: Private vehicle Plan: Anticipate Vishnu will be discharged home with no new services when medically stable. He will follow up with his community providers and plan of care and transport with family. CM will follow and continue to support discharge planning efforts. Social Determinants of Health Screening Social Determinants of health last assessed in clinic: 07/31/25 Will the Patient Participate in the Screening?: Yes Do you worry about having a steady place to live?: no Problems where you live: no known problems In the past 12 months, have you had to go without electric, gas, oil or water in your home?: no Has lack of transportation kept you from medical appointments or from doing things needed for daily living?: no Has anyone in your life made you feel unsafe or unsupported?: no How hard is it for you to pay for the very basics like food, housing, medical care, and heating? Would you say it is:: Not hard at all Do you want help finding or keeping work or a job?: I do not need or want help If for any reason you need help with day-to-day activities such as bathing, preparing meals, shopping, managing finances, etc., do you get the help you need?: I don?t need any help How often do you feel lonely or isolated from those around you?: Never Do you speak a language other than Mozambican at home?: No Does the patient want assistance with any of the above?: No 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 Hypothyroidism (Chronic 12/24/12) Hyperlipidemia (Chronic 12/24/12) Essential hypertension (Chronic 08/30/13) Anxiety (Chronic 12/20/11) s/p concussion Medical History Deep venous thrombosis of left peroneal vein (~07/2022) managed with 3 mos of xarelto COVID-19 12/01/21, URI symptoms; 03/2023 Atypical chest pain 2020-negative ETT History of tobacco use quit 2013 Allergic rhinitis Surgical History History of colonoscopy (~09/2024) S/P Achilles tendon repair S/P carpal tunnel release S/P cubital tunnel release S/P tonsillectomy and adenoidectomy S/P appendectomy History of carpal tunnel surgery bilat Family History Mother , age 90 Essential hypertension Breast cancer Father , age 85 Essential hypertension Heart disease MURMUR Hyperlipidemia Sister Blood glucose abnormal Sister Graves' disease Essential hypertension Hyperlipidemia Sister Heart disease MURMUR Sister Heart disease MURMUR Brother Stroke Maternal Grandfather No problems noted. Paternal Grandfather Heart disease Maternal Grandmother No problems noted. Paternal Grandmother Heart disease Son Essential hypertension Daughter No problems noted. Maternal Uncle Leukemia Social History Smoking/Tobacco Use Status: Former Tobacco Use tobacco type: cigarettes and cigars Quit Date: 08/07/13 Tobacco: How many years used: 10 Quit status: has quit before Second Hand Exposure: Yes Smoking risk assessment performed?: Yes Alcohol Intake: current Alcohol Intake frequency: a few times a week Alcohol type: beer, wine and hard liquor Drug use: Daily Substance use type: marijuana and other Details: edibles Adopted: No Caregiver/Support person: No Foster care: No Household members: spouse Housing: house Number of Children: 2 Communication Needs: Hard of Hearing and Corrective Lenses Education Level: college Do you need help understanding health information?: Rarely current occupation: Retired banker at [employer] Pets and animals: Yes Pets and animals: cat(s) Sexually active: Yes Do you think of yourself as: straight/heterosexual Current gender identity: male What is your relationship status?: How often do you talk on the phone with friends or family?: once per week How often do you get together with friends or relatives?: once per week Do you belong to any clubs or organized social groups?: no Panel score (0-1 are the most socially isolated patients): 1 What type of physical activity do you participate in: walking Duration: 60-90 minutes/day Frequency: 1-2 times per week Na/Presybeterian: None Special na needs: No Agree to transfusion: Yes Seatbelt use: always Helmet use: Yes Helmet use: always Drive intox or ride w/intox tow motor driver: No Working smoke detector in home: Yes Carbon monox detector in home: Yes Firearms in home: No Do you feel safe at home: Yes Do you feel safe in your relationship?: Yes Victim of physical abuse: No Victim of emotional abuse: No Victim of sexual abuse: No
--- NOTE | 2025-08-01 10:00 | DI.US_ITS ---
APPROVED REPORT EXAM: Comprehensive 2D, Doppler, and color-flow Echocardiogram Patient Location: In-Patient Room/Bed: 229 Respiratory Equipment Assistant: Ronna Castle RDCS (AE) Indications: Recent onset unstable gait with negative CT head Other Information Study Quality: Adequate Conclusion Normal left ventricular wall thickness and chamber size. Ejection fraction is 60%. Wall motion is normal Normal right ventricular size and function Both atria are normal in size Aortic valve is trileaflet and sclerotic with trace regurgitation Estimated right ventricular systolic pressure is 38 mmHg Ascending aorta measures 3.55 cm Wall motion Left Ventricle The left ventricle is normal size. The left ventricular systolic function is normal. The left ventricular ejection fraction is within the normal range. There is normal left ventricular wall thickness. There is normal LV segmental wall motion. There is no ventricular septal defect visualized. LVEF is 60%. Right Ventricle The right ventricle is normal size. The right ventricular systolic function is normal. Atria The left atrium size is normal. The right atrium size is normal. The interatrial septum is intact with no evidence for an atrial septal defect. Aortic Valve The Aortic valve is sclerotic. Aortic valve is trileaflet. No hemodynamically significant valvular aortic stenosis. Trace aortic regurgitation. Mitral Valve The mitral valve is normal in structure. No evidence of mitral valve stenosis. Trace to mild mitral regurgitation. Tricuspid Valve The tricuspid valve is normal in structure. There is no tricuspid valve stenosis. Trace tricuspid regurgitation. The RVSP is 38.4mmHg. Pulmonic Valve The pulmonary valve is normal in structure. There is no pulmonic valvular stenosis. There is no pulmonic valvular regurgitation. Great Vessels The aortic root is normal in size. The ascending aorta is mildly dilated. Aortic arch is not well visualized. IVC is normal in size and collapses >50% with inspiration. Pericardium There is no pericardial effusion. 2D Dimensions IVSD d PLAX 1.02 cm M: 0.6-1.2 Ao Root d 3.40 cm M: 3.1 - 3.7 LVPW d PLAX 1.00 cm M: 0.6 - 1.2 Ao Asc Diam d 3.55 cm M: 2.6 - 3.4 LVID d PLAX 5.15 cm M: 4.2 - 5.8 LVDs 3.50 cm M: 2.5 - 4.0 LV EF Teichholz 59.8 % FS 32.01 % LV EDV (Teich) 126.4 mL LV ESV (Teich) 50.8 mL M-Mode TAPSE 3.19 cm (M/F) >1.7 Auto EF LV EDV A4C 119.5 mL LV EDV A2C 113.4 mL LV EDV BP 116.7 mL LV ESV A4C 47.9 mL LV ESV A2C 45.7 mL LV ESV BP 46.4 mL LVEF(%) A4C 59.9 % LVEF(%) A2C 59.7 % LVEF(%) BP 60.2 % LV SV A4C 71.6 ml LV SV A2C 67.8 ml LV SV BP 70.2 ml LV CO A4C 4.9 L/min LV CO A2C 4.7 L/min LV CO BP 4.8 L/min HR A4C 68.05 BPM HR A2C 69.64 BPM LV EDV Index (BP) LA Volume LA Length A4C 5.6 cm LA Length A2C 4.9 cm LA Area A4C s 17.90 cm2 LA Area A2C s 14.08 cm2 LA Vol A4C A-L 48.22 mL LA Vol A2C A-L 34.19 mL LA Vol Biplane A-L 43.4 mL LA Vol/BSA A4C A-L LA Vol/BSA A2C A-L LA Vol/BSA BP A-L 20.7 mL/m2 LA Vol A4C MOD 44.9 mL LA Vol A2C MOD 31.2 mL LA Vol BP MOD 39.5 mL RA Volume RA Area A4C 16.1 cm2 RA ESV A4C (A-L) 46.4mL RA Vol/BSA A4C A-L RA Length A4C 4.7 cm RA ESV A4C (MOD) 42.7mL LV Diastology MV E' medial 0.105 (>0.07 m/s) MV E Vmax 0.88 (0.4-1.3 m/s) MV E/E' MED 8.39 (<14) MV A Vmax 1.05 (0.4-1.3 m/s) MV E' lateral 0.103 (>0.1 m/s) E/A Ratio 0.8 MV E/E' LAT 8.61 (<14) MV E' Average 0.104 m/s MV E/E'(average) 8.50 Aortic Valve AoV Vmax 1.97 m/s LVOT Vmax 1.50 m/s AoV Peak Grad 43.9 mmHg LVOT Peak Grad 9.0 mmHg AoV Area (Vmax) 2.56 cm2 LVOT VTI 0.303 m AoV VTI 0.373 m LVOT Mean Grad 4.9 mmHg AoV Mean Hunter. 1.26 m/s LVOT SV 101.73 mL AoV Mean Grad 7.5 mmHg LVOT Diam s 2.05 cm AoV Area (VTI) 2.73 cm2 AV Regurg Peak Gr. 15.47 mmHg Velocity Ratio 0.76 AR Decel [place] 2.3m/sec2 AR DT 1814 msec AR PHT 526 msec AR Vmax 4.25 m/s Mitral Valve MV DT 176 (160-240 msec) MV Vmax TIPS 0.93 m/s MV Mean Grad 1.5 (<2mmHg) MV VTI 0.357 m Pulmonary Valve PV Vmax 1.03 (0.5-1.5 m/s) RVOT Vmax 0.75 m/s PV Peak Grad 4.3 mmHg RVOT Peak Gr. 2.3 mmHg PV Mean Hunter 0.68 m/s RVOT VTI 0.157 m PV Mean Grad 2.1 mmHg RVOT Mean Gr. 1.3 mmHg Tricuspid Valve RA Pressure 3.00 mmHg TR Vmax 2.97 m/s TV S' 0.17 m/s TR Peak Grad 35.3 mmHg RVSP (TR) 38.4 mmHg
--- NOTE | 2025-08-01 12:50 | W.NUTRFU ---
Date of service: 08/01/25 Time of Service: 10:15 Nutrition Note NOTE: Brief visit with patient as he was about to engage in some washing. received consult request re: diabetes ed/mgt. Pt last A1C of 5.6% last month with a hx of A1C 7.7 or less over 7 years per chart data. Reports fair -good intake and tolerating consistent carb/heart healthy diet order. Denies unintentional wt loss - was on GLP-1 prior to admission.. Did leave my card to contact for outpatient MNT/counseling for continued healthy wt reduction. Glucose trending desirably this admission so far - will continue to monitor. Denies concerns with chewing/swallowing/constipation/diarrhea. Denies need for ONS at this time. Will continue to monitor glucose/ nutrition-related labs, weight, po intake, desired education Pt took my contact info should he desire outpatient nutrition counseling after discharge. Time Spent in Nutritional Counseling and Treatment: 5 min
--- NOTE | 2025-08-01 15:57 | IN_ITS ---
PT Notes Visit Reasons: Acute Left Pyelonephritis, Gait Abnormality, DANISH Physical Therapy Inpatient Initial Evaluation Date: 08/01/2025 Referring Doctor: Davonte Becerra MD PT Orders: PT CONSULT: DC non PT dependent. Unstable gait recent onset. Precautions: Fall. Standard. Activity as tolerated. SNHL. Patient Profile/Admitting Diagnosis: Vishnu is a 70-year-old male who presented to the ED on 07/31/2025 with chief complaints of difficulty urinating, chest pain, shortness of breath, low-grade fever for 3 days prior to admission. Patient is admitted for management of acute pyelonephritis currently put on IV Rocephin, gait abnormality which reportedly may be due to chronic alcoholism, hypothyroidism hyperlipidemia, hypertension, stage III kidney disease, and type 2 diabetes mellitus. 08/01/2025 Brain MRI Impression: The left vertebral artery at the skull base is not visualized, possibly related to occlusion of this vessel in the neck. The right vertebral artery is dominant and the sole contributor to formation of the basilar artery at the skull base recommend follow-up CT angiography. There is some FLAIR bright signal abnormality at the mid level of the meri, not associated with hemorrhage, surrounding edema, nor restricted diffusion. Chronic ischemic changes at this level. 07/31/2025 Cervical Spine MRI Impression: 1. At C3-4 level there is a posterolateral left disc protrusion which indents the anterior left side of the thecal sac and there is asymmetric left-sided for facet arthropathy also evident at this level and left-sided foraminal stenosis. There is no foraminal stenosis on the right side at this level. 2. At C4-5 level there is significant foraminal stenosis on the right side. 3. At C5-6 level there is foraminal stenosis on the right side. 4. There is no abnormal signal in the cervical spinal cord. 07/31/2025 Thoracic Spine MRI Impression 1. No evidence of vertebral fractures nor disc herniations nor thoracic spinal canal stenosis and there is no foraminal stenosis in the thoracic spinal column. 2. 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 07/31/2025 Lumbar Spine MRI Impression 1. Multilevel findings as described individually above 2. There is degenerative anterolisthesis of L4 upon L5 related to facet arthropathy. There is a right-sided annular tear at this level noted but without a distinct focal disc herniation at the level the tear. There is mild central canal stenosis and there is bilateral foraminal stenosis at this level with mild-moderate impingement of the exiting bilateral nerve roots at this level between the overlying L4 pedicles and the underlying L4-5 annulus. 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) Mild, followed by [facility] Patellar tendinitis, left knee (Chronic) Left anterior knee pain (Chronic) Type 2 diabetes mellitus with diabetic neuropathy, unspecified (Chronic) Sensorineural hearing loss, bilateral (Chronic 07/16/15) has hearing aids Postconcussion syndrome (Chronic 12/25/13) managed at [facility] Hypothyroidism (Chronic 12/24/12) Hyperlipidemia (Chronic 12/24/12) Essential hypertension (Chronic 08/30/13) Anxiety (Chronic 12/20/11) s/p concussion Medical History Deep venous thrombosis of left peroneal vein (~07/2022) managed with 3 mos of xarelto COVID-19 12/01/21, URI symptoms; 03/2023 Atypical chest pain 2019-negative ETT History of tobacco use quit 2013 Allergic rhinitis Surgical History History of colonoscopy (~09/2024) S/P Achilles tendon repair S/P carpal tunnel release S/P cubital tunnel release S/P tonsillectomy and adenoidectomy S/P appendectomy History of carpal tunnel surgery bilat Social History/Home Situation: Lives with in a private home with 5 steps to enter and a rail on 1 side. Independent with all aspects of ADLs prior to surgery on assistive device. Equipment Owned/DME: None Subjective: Denied chest pain throughout. Lightheaded with sitting and standing but was able to tolerate mobility assessment. Still feels weak but better than when he arrived at the ED. concerned about exact issue may be having. stated that they both were doing travelling for 2.5 weeks prior to presentation to the ED. Weakness acutely arose 4-5 days before admission. added that patient complained of L-sided back pain at onset that limited patient's ability to walk. Objective: General Observation: Resting in bed. present in room. Minimal shakiness in fingers with movement. Mental Status: Alert and oriented as to person, place, time, and purpose. responses somewhat slowed. Pain: Denied chest pain Vital Signs: WNL during session ROM: Right Upper Extremity: Shoulder Flexion WFL. Shoulder abduction WFL. Elbow flexion WFL. Wrist flexion WFL. Functional opening and closing of hand WFL. Left Upper Extremity: Shoulder Flexion WFL. Shoulder abduction WFL. Elbow flexion WFL. Wrist flexion WFL. Functional opening and closing of hand WFL. Right Lower Extremity: Hip flexion WFL. Hip abduction WFL. Knee flexion WFL. Ankle dorsiflexion WFL. Ankle plantarflexion WFL. Left Lower Extremity: Hip flexion WFL. Hip abduction WFL. Knee flexion WFL. Ankle dorsiflexion WFL. Ankle plantarflexion WFL. Strength: Right Upper Extremity: Shoulder flexors 4+/5. Shoulder abductors 4+/5. Elbow flexors 5/5. Elbow extensors 5/5. Bump Grader Operator strong. Left Upper Extremity: Shoulder flexors 4+/5. Shoulder abductors 4+/5. Elbow flexors 5/5. Elbow extensors 5/5. Bump Grader Operator strong. Right Lower Extremity: Hip flexors 4+/5. Hip abductors 4+/5. Knee flexors 5/5. Knee extensors 4+/5. Ankle dorsiflexors 4+/5. Ankle plantarflexors 4+/5. Left Lower Extremity: Hip flexors 4+/5. Hip abductors 4+/5. Knee flexors 5/5. Knee extensors 4+/5. Ankle dorsiflexors 4+/5. Ankle plantarflexors 4+/5. Bed Mobility/Transfers: Minimal cueing provided for use of B hands as needed for support, movement sequence, AD management, and posture to reduce fall risk and minimize pain report Rolling independent Supine to sit independent Sit to supine supervision Sit to stand contact guard assist without device Stand to sit contact guard assist without device Bed to transport chair contact guard assist without device Gait: With FWW 150 feet using no AD from room to therapy room but was holding onto wall for support. With SPC, 150 feet from therapy back to room. Contact guard assist provided with the first trip without AD, stand by assist with use of single-point cane. Lightheadedness persisted but subsided later on in the session. No LOB. No SOB. No ataxia. No LOB. Jennifer slowed. No chest pain reported. Stairs: Ensured safe and correct negotiation of 6 x 4-inch steps and 4 x 6-inch steps whie holding onto B rails for support. Directional change to R after descending step caused increased postural sway to L and near LOB but was immediately minimally assisted by PT to regain balance. No other LOB episode occurred for the rest of the session. No chest pain reported. Balance: Static Sitting: Normal Dynamic Sitting: Normal Static Standing: Fair Dynamic Standing: Fair Special Tests: Mobility Limitations Standardized Measure [facility] AM-PAC 6 clicks Basic Mobility Inpatient Short Form: Raw Score: 19 CMS Score: 42% deficit Informed Consent/Education: Patient was instructed in purpose of PT consult and plan of care. Agreeable to proceed with established PT POC to achieve personal goals. Assessment: 70-year-old male patient with post concussive syndrome being managed at [facility] with over 2 weeks of continued travelling by air, land, and sea who presented to the ED with gait abnormality. B UE/LE strength symmetrically good. Rapid alternating movement intact. Became more lightheaded in standing. Lost balance after doing full tandem of the 4-stage Balance Test with L leg leading, was carefully assisted back onto bed with no issues. Deferred one-legged stance portion of the test due to safety issues. Patient has had some balance issues and usually held onto the beltran with walking prior to admission related to his post concussive syndrome compounded by ongoing infectious pathology. Patient was able to optimize stability with use of single-point cane. Patient was fitted and issued a single point cane at end of session. Patient will benefit from PT for continued strengthening and balance training to regain PLOF. Patient presents with clinical signs and symptoms consistent with current/ad mitting diagnoses that have resulted to mobility limitations, gait instability, generalized weakness, and overall ADL decline as demonstrated by the following impairment level findings: 1. Decreased strength to B UE/LE major muscle groups 2. Impaired standing balance 3. Impaired activity tolerance 4. Shortness of breath Impairments are contributing to the following functional limitations: 1. Difficulty with ambulation without assistive device and physical assistance 2. Increased completion time for mobility ADL performance 3. Increased risk for falls 4. Difficulty with managing steps alone safely Patient is assessed as a 69120 moderate complexity based on the following: History: 70-year-old male with past medical history as indicated above Examination: Demonstrable impairment in strength, balance, and mobility level with underlying impairments and functional limitations as exhibited above as well as deficit score of 42% utilizing the [facility] Mobility Inpatient Short Form Presentation: Evolving Decision Makin moderate complexity Goals: Goals X1 week 1. Supine-Sit independent 2. Sit-Supine independent 3. Sit-Stand independent 4. Stand-Sit independent with SPC 5. Bed-Chair independent with SPC 6. Chair-Bed independent with SPC 7. Independent gait on level surface with use of SPC for at least 300 feet without report of pain nor dyspnea 8. Independent stair negotiation while holding onto B rails for at least 5 steps without report of pain nor dyspnea 9. Independent with home exercise program 10. Good static and dynamic standing balance/tolerance Plan of Care/Treatment Plan: 1-2x/day, 7 days/week x 1 week. Plan of care has been reviewed with the [employer]ER [employer] TACKER providing the service under Physical Therapy direction. Initiate Physical Therapy intervention for pain management as needed, strengthening, bed mobility, transfers, gait, stairs, balance training, and use of assistive device. DISCHARGE RECOMMENDATIONS: PT for continued rehabilitation and strengthening. TREATMENT CODE/TIME: 66701 x 20 minutes for 1 unit, 88834 x 41 minutes for 3 units (14:44-15:45). Thank you for the opportunity to participate in the care of this patient. Doris Escalante PT, DPT, CLT [facility] [place], [place]
--- NOTE | 2025-08-01 16:08 | PGE_ITS ---
Date of Service Date of service: 08/01/25 Time of Service: 08:00 Assessment and Plan Assessment and plan (1) Acute pyelonephritis: Start date: 07/31/25 Status: Acute Assessment and plan: Imaging consistent with acute pyelonephritis, febrile, neutrophilic leukocytosis Continue ceftriaxone and IV fluids Awaiting urine culture (2) Gait abnormality: Start date: 07/31/25 Status: Acute Assessment and plan: Teleneurology advised imaging, carotid dopplers, echocardiogram Results pending (3) Postconcussion syndrome: Status: Chronic Assessment and plan: Followed at [facility] [place], [place] (4) Alcohol use disorder, moderate, dependence: Status: Chronic Assessment and plan: No evidence of acute withdrawal at this time. (5) Hypothyroidism: Status: Chronic Assessment and plan: Continue outpatient replacement therapy daily. (6) Hyperlipidemia: Status: Chronic Assessment and plan: Continue outpatient medical therapy. (7) Essential hypertension: Status: Chronic Assessment and plan: Continue outpatient medical therapy adjusting as needed acutely. (8) Stage 3a chronic kidney disease (CKD): Status: Chronic Assessment and plan: With acute DANISH presenting with pyelonephritis, will gently hydrate with echocardiogram follow-up in the morning though the patient has no known CHF. (9) Type 2 diabetes mellitus: Status: Chronic Assessment and plan: Patient is currently on GLP-1 agonist with metformin. He does have associated neuropathy along with CKD. His neuropathy is flared with his gait abnormality and acute pyelonephritis as well as being off his medicines for 3 days. While hospitalized, he will be on glucometer measurements before meals and at bedtime with sensitive sliding scale short acting insulin coverage. (10) DANIEL (obstructive sleep apnea): Status: Chronic Assessment and plan: Patient is on CPAP and will use his home CPAP while hospitalized. Subjective Subjective Interval history since last seen: Mr. Mullins is comfortable in bed. Neurological workup without acute findings. Exam Narrative Exam Narrative: General: This is a pleasant man in no distress HEENT: Normocephalic, atraumatic CV: RRR Resp: CTAB Abd: soft, NTND Back: +CVAT on the left MSK: voluntary motion x4 Neuro: awake, alert, no focal deficits Objective Last Vital Signs Temp 37.0 C 08/01/25 07:04 Pulse 72 08/01/25 07:04 Resp 16 08/01/25 07:04 BP 128/73 08/01/25 07:04 Pulse Ox 96 08/01/25 07:04 Laboratory Results - last 24 hr 07/31/25 07/31/25 07/31/25 20:00 20:15 22:21 WBC 11.68 H RBC 3.54 L Hgb 11.1 L Hct 31.8 L MCV 90 MCH 31.4 MCHC 34.9 RDW 12.1 Plt Count 227 MPV 10.8 Immature Gran % 1.2 Neutrophils % 79.2 Lymphocytes % 8.6 Monocytes % 10.5 Eosinophils % 0.1 Basophils % 0.4 Nucleated RBC % 0.0 Absolute Neutrophils 9.25 H Absolute Lymphocytes 1.00 L Absolute Monocytes 1.23 H Absolute Eosinophils 0.01 Absolute Basophils 0.05 PT INR VBG Lactate 1.3 Sodium 131 L Potassium 3.9 Chloride 97 L Carbon Dioxide 24.5 Anion Gap 9.9 BUN 44 H Creatinine 2.14 H Est GFR (CKD-EPI 2020) 30.50 Glucose 125 H Calcium 8.3 Magnesium 2.0 Total Bilirubin 0.7 AST 117 H ALT 112 H Alkaline Phosphatase 72 Troponin I Total Protein 7.1 Albumin 4.0 Lipase 28 TSH 1.55 Urine Color Yellow Urine Clarity Clear Urine pH 5.5 Ur Specific Greer 1.015 Urine Protein >=300 H Urine Ketones Trace H Urine Blood Moderate H Urine Nitrite Negative Urine Bilirubin Negative Urine Urobilinogen 0.2 Ur Leukocyte Esterase Small H Urine RBC 5-10 H Urine WBC 10-20 H Ur Epithelial Cells Few Urine Crystals Negative Urine Bacteria Few Urine Casts Negative Urine Mucus Negative Ur Culture Indicated? Yes Urine Glucose Negative Urine Opiates Screen Negative Urine Methadone Screen Negative Ur Barbiturates Screen Negative Ur Tricyclics Screen Negative Ur Amphetamines Screen Negative U Benzodiazepines Scrn Negative Urine Cocaine Screen Negative U Cannabinoids Screen Positive A Ethyl Alcohol < 3.0 COVID-19 Source Nasopharynx SARS-CoV-2 (PCR) Negative Influenza Type A (PCR) Negative Influenza Type B (PCR) Negative RSV (PCR) Negative 08/01/25 06:10 WBC 12.60 H RBC 3.79 L Hgb 11.9 L Hct 34.6 L MCV 91 MCH 31.4 MCHC 34.4 RDW 12.5 Plt Count 218 MPV 10.6 Immature Gran % 0.7 Neutrophils % 87.3 Lymphocytes % 4.7 Monocytes % 6.3 Eosinophils % 0.5 Basophils % 0.5 Nucleated RBC % 0.0 Absolute Neutrophils 11.00 H Absolute Lymphocytes 0.59 L Absolute Monocytes 0.79 Absolute Eosinophils 0.06 Absolute Basophils 0.06 PT 10.5 INR 1.1 VBG Lactate Sodium 133 L Potassium 3.6 Chloride 98 Carbon Dioxide 24.2 Anion Gap 10.3 BUN 44 H Creatinine 2.03 H Est GFR (CKD-EPI 2020) 32.41 Glucose 153 H Calcium 8.1 L Magnesium Total Bilirubin 0.7 AST 91 H ALT 113 H Alkaline Phosphatase 80 Troponin I 16 Total Protein 7.0 Albumin 3.8 Lipase TSH Urine Color Urine Clarity Urine pH Ur Specific Greer Urine Protein Urine Ketones Urine Blood Urine Nitrite Urine Bilirubin Urine Urobilinogen Ur Leukocyte Esterase Urine RBC Urine WBC Ur Epithelial Cells Urine Crystals Urine Bacteria Urine Casts Urine Mucus Ur Culture Indicated? Urine Glucose Urine Opiates Screen Urine Methadone Screen Ur Barbiturates Screen Ur Tricyclics Screen Ur Amphetamines Screen U Benzodiazepines Scrn Urine Cocaine Screen U Cannabinoids Screen Ethyl Alcohol COVID-19 Source SARS-CoV-2 (PCR) Influenza Type A (PCR) Influenza Type B (PCR) RSV (PCR) PAWSS Have you Been Recently Intoxicated or Drunk Within the Last 30 days?: No Have you Ever Experienced Previous Episodes of Alcohol Withdrawal?: Unable to Obtain Have you ever Experienced Withdrawal Seizures?: No Have you ever Experienced Delirium Tremens(DT)s?: No Have you ever undergone Alcohol Rehabilitation Treatment (i.e, inpt ot outpatient treatment programs)?: No Have you ever Experienced Blackouts?: Yes Have you ever Combined Alcohol with other Downers within the last 90 days?: Yes Have you ever Combined Alcohol with any other Substance of Abuse during the last 90 days?: No Positive Blood Alcohol level on Presentation? [PCS.BAL]: No Evidence of Increased Autonomic Activity (i.e. HR>120, tremor, sweating, agitation, nausea)?: Yes Result: 2 VTE Prohylaxis Risk Level: Moderate/High Risk Contraindications: None Prophylaxis: Pharmacologic and Mechanical Time Spent with Patient Time Spent with Patient: 25-34 minutes Time was spent: preparing to see the patient(eg.review tests), obtaining and/or reviewing separately otained hiistory, ordering medications,tests, procedures, referring, communicating with other health post acute care nurse, indepentently interpreting results, counseling the patient and care coordination
--- NOTE | 2025-08-01 21:49 | W.PC.ACHO ---
Registration Status: ADM ELISA Primary Language: Preferred Language: Yakut ED Information & Data Chief Complaint Urinary 07/31/25 19:16 Triage Note pt here c/o dysuria, urgency 07/31/25 19:08 and bilateral flank pain. pt denies blood in urine. Medical / Surgical History Allergic rhinitis Atypical chest pain COVID-19 Deep venous thrombosis of left peroneal vein (~07/2022) History of tobacco use (Last Reviewed 08/01/25 @ 07:19 by Davonte Becerra) History of carpal tunnel surgery History of colonoscopy (~09/2024) S/P Achilles tendon repair S/P appendectomy S/P carpal tunnel release S/P cubital tunnel release S/P tonsillectomy and adenoidectomy Most Recent Vital Signs Temperature 36.6 C 08/01/25 19:43 Temperature Source Temporal Artery Scan 08/01/25 19:43 Pulse 75 08/01/25 19:43 Pulse Rhythm Regular 07/31/25 23:03 Pulse 67 07/31/25 22:10 Respiratory Rate 17 08/01/25 19:43 Respiratory Effort Normal, Non-Labored 07/31/25 23:03 Respiratory Depth Normal 07/31/25 23:03 Respiratory Pattern Normal 07/31/25 23:03 Blood Pressure 146/79 H 08/01/25 19:43 Blood Pressure Mean 101 08/01/25 19:43 Blood Pressure Position Supine 07/31/25 19:08 Pulse Oximetry 92 08/01/25 19:43 Oxygen Delivery Method Room Air 08/01/25 19:43 Oxygen Flow Rate 0 08/01/25 19:43 Pain Level 6 08/01/25 21:04 Comment room air 07/31/25 22:00 Allergies apixaban (From Eliquis) Adverse Reaction (Intermediate, Verified 07/31/25 19:15) Swelling/Edema pain and swelling in knees. zonisamide Adverse Reaction (Mild, Verified 07/31/25 19:15) Confusion confusion Precautions Isolation Standard precaution 07/31/25 19:11 Active Medications Generic Name Dose Route Start Last Admin Trade Name Freq PRN Reason Stop Dose Admin Acetaminophen 650 mg 07/31/25 23:43 08/01/25 21:04 Acetaminophen 325 Mg Tab PO 650 mg Q4H PRN PRN Administration Aspirin 81 mg 08/01/25 08:30 08/01/25 07:53 Aspirin 81 Mg Chew PO 81 mg DAILY ARMAND Administration Duloxetine HCl 60 mg 08/01/25 08:30 08/01/25 07:53 Duloxetine 30 Mg Cap PO 60 mg DAILY ARMAND Administration Gabapentin 300 mg 08/01/25 08:30 08/01/25 20:55 Gabapentin 300 Mg Cap PO 300 mg BID ARMAND Administration Heparin Sodium (Porcine) 5,000 units 08/01/25 06:00 08/01/25 21:05 Heparin 5,000 Units/Ml Vial SC 5,000 units Q8H ARMAND Administration Ceftriaxone Sodium/Dextrose 1 gm in 50 mls @ 100 mls/hr 08/01/25 08:00 08/01/25 12:40 Rocephin IVPB Infused Q24H ARMAND Infusion Sodium Chloride 1,000 mls @ 150 mls/hr 07/31/25 23:43 08/01/25 21:03 Saline 1000ml Bag IV 150 mls/hr INFUSION ARMAND Administration Insulin Aspart 0 units 08/01/25 08:00 08/01/25 17:00 Insulin Aspart 300 Units/3 Ml Pen SC Not Given 0800,1200,1700 [facility] Protocol Levothyroxine Sodium 88 mcg 08/01/25 06:00 08/01/25 06:14 Levothyroxine 88 Mcg Tab PO 88 mcg 0600 ARMAND Administration Lisinopril 20 mg 08/01/25 08:30 08/01/25 07:53 Lisinopril 20 Mg Tab PO 20 mg DAILY ARMAND Administration Metoprolol Tartrate 50 mg 08/01/25 08:30 08/01/25 20:55 Metoprolol 50 Mg Tab PO 50 mg BID ARMAND Administration Multivitamins 1 tab 08/01/25 08:30 08/01/25 07:54 Multivitamin Tab PO 1 tab DAILY ARMAND Administration Pravastatin Sodium 40 mg 08/01/25 00:03 08/01/25 20:55 Pravastatin 40 Mg Tab PO 40 mg HS ARMAND Administration Tamsulosin HCl 0.4 mg 08/01/25 08:30 08/01/25 07:53 Tamsulosin 0.4 Mg Capcr PO 0.4 mg DAILY ARMAND Administration Thiamine HCl 100 mg 08/01/25 08:30 08/01/25 07:54 Thiamine 100 Mg Tab PO 100 mg DAILY ARMAND Administration IV IV Catheter Type [] Saline Lock IV Catheter Type [] Saline Lock IV Catheter Type [Left Peripheral IV Antecubital] IV Catheter Gauge [] 20 IV Catheter Gauge [] 20 IV Catheter Gauge [Left 18 Antecubital] Diagnostics 08/01/25 07/31/25 07/31/25 Range/Units 06:10 22:21 20:15 WBC 12.60 H (4.4-10.8) 10^3/uL RBC 3.79 L (4.36-5.78) 10^6/uL Hgb 11.9 L (13.5-17.5) g/dL Hct 34.6 L (40.0-50.0) % MCV 91 (80-95) fL MCH 31.4 (27.0-33.0) pg MCHC 34.4 (32.0-36.0) % RDW 12.5 (11.8-14.1) % Plt Count 218 (130-400) 10^3/uL MPV 10.6 (8.0-11.0) fL Immature Gran % 0.7 % Neutrophils % 87.3 % Lymphocytes % 4.7 % Monocytes % 6.3 % Eosinophils % 0.5 % Basophils % 0.5 % Nucleated RBC % 0.0 (0.0-0.3) % Absolute Neutrophils 11.00 H (1.2-6.7) 10^3/uL Absolute Lymphocytes 0.59 L (1.2-3.4) 10^3/uL Absolute Monocytes 0.79 (0.1-0.8) 10^3/uL Absolute Eosinophils 0.06 (0.0-0.7) 10^3/uL Absolute Basophils 0.06 (0.0-0.2) 10^3/uL PT 10.5 (9.1-11.1) sec INR 1.1 (0.9-1.1) Sodium 133 L (136-145) mmol/L Potassium 3.6 (3.5-5.1) mmol/L Chloride 98 (98-107) mmol/L Carbon Dioxide 24.2 (20.0-31.0) mmol/L Anion Gap 10.3 (3-11) mmol/L BUN 44 H (9-23) mg/dL Creatinine 2.03 H (0.73-1.18) mg/dL Est GFR (CKD-EPI 2020) 32.41 (mL/min/1.73m2) Glucose 153 H (74-106) mg/dL Calcium 8.1 L (8.3-10.6) mg/dL Magnesium 2.0 (1.6-2.6) mg/dL Total Bilirubin 0.7 (0.2-1.2) mg/dL AST 91 H (<34) U/L ALT 113 H (10-49) U/L Alkaline Phosphatase 80 (46-116) U/L Troponin I 16 (<54) ng/L Total Protein 7.0 (5.7-8.2) g/dL Albumin 3.8 (3.2-5.0) g/dL TSH 1.55 (0.55-4.78) uIU/mL Urine Opiates Screen (Negative) Urine Methadone Screen (Negative) Ur Barbiturates Screen (Negative) Ur Tricyclics Screen (Negative) Ur Amphetamines Screen (Negative) U Benzodiazepines Scrn (Negative) Urine Cocaine Screen (Negative) U Cannabinoids Screen (Negative) Ethyl Alcohol < 3.0 (<3) mg/dL COVID-19 Source Nasopharynx SARS-CoV-2 (PCR) Negative (Negative) Influenza Type A (PCR) Negative (Negative) Influenza Type B (PCR) Negative (Negative) RSV (PCR) Negative (Negative) 07/31/ Range/Units 20:00 WBC (4.4-10.8) 10^3/uL RBC (4.36-5.78) 10^6/uL Hgb (13.5-17.5) g/dL Hct (40.0-50.0) % MCV (80-95) fL MCH (27.0-33.0) pg MCHC (32.0-36.0) % RDW (11.8-14.1) % Plt Count (130-400) 10^3/uL MPV (8.0-11.0) fL Immature Gran % % Neutrophils % % Lymphocytes % % Monocytes % % Eosinophils % % Basophils % % Nucleated RBC % (0.0-0.3) % Absolute Neutrophils (1.2-6.7) 10^3/uL Absolute Lymphocytes (1.2-3.4) 10^3/uL Absolute Monocytes (0.1-0.8) 10^3/uL Absolute Eosinophils (0.0-0.7) 10^3/uL Absolute Basophils (0.0-0.2) 10^3/uL PT (9.1-11.1) sec INR (0.9-1.1) Sodium (136-145) mmol/L Potassium (3.5-5.1) mmol/L Chloride (98-107) mmol/L Carbon Dioxide (20.0-31.0) mmol/L Anion Gap (3-11) mmol/L BUN (9-23) mg/dL Creatinine (0.73-1.18) mg/dL Est GFR (CKD-EPI 2020) (mL/min/1.73m2) Glucose (74-106) mg/dL Calcium (8.3-10.6) mg/dL Magnesium (1.6-2.6) mg/dL Total Bilirubin (0.2-1.2) mg/dL AST (<34) U/L ALT (10-49) U/L Alkaline Phosphatase (46-116) U/L Troponin I (<54) ng/L Total Protein (5.7-8.2) g/dL Albumin (3.2-5.0) g/dL TSH (0.55-4.78) uIU/mL Urine Opiates Screen Negative (Negative) Urine Methadone Screen Negative (Negative) Ur Barbiturates Screen Negative (Negative) Ur Tricyclics Screen Negative (Negative) Ur Amphetamines Screen Negative (Negative) U Benzodiazepines Scrn Negative (Negative) Urine Cocaine Screen Negative (Negative) U Cannabinoids Screen Positive A (Negative) Ethyl Alcohol (<3) mg/dL COVID-19 Source SARS-CoV-2 (PCR) (Negative) Influenza Type A (PCR) (Negative) Influenza Type B (PCR) (Negative) RSV (PCR) (Negative) 07/31/25 20:00 Urine Culture - Pending Urine - Reflex from [id number] Documentation Fingerstick Glucose Start: 07/31/25 23:43 Freq: .ACHS Status: Active Protocol: Activity Type Activity Date Activity User E-sign Co-sign Detail Recorded Client Recorded Date Recorded By Document 08/01/25 16:38 BKG DAEMON(3) [id number] 08/01/25 16:39 BKG DAEMON(4) Intake and Output - 24 Hour Total 07/31/25 19:03 thru 08/01/25 20:42 Intake Total 4370 Output Total 1525 Balance 2845 Weight 96.6 kg Intake: IV 3270 Oral 1100 Output: Urine 1525 Other: Urine Color Pale Yellow Urine Appearance Clear Urine Odor Normal Falls Risk Assessment History of Falls No History 07/31/25 23:03 Contributing Factors Impairments 07/31/25 23:03 Ambulatory Aids Independent 07/31/25 23:03 Tubes/Lines W/no contributing factors 07/31/25 23:03 Gait Evaluation W/no contributing factors 07/31/25 23:03 Cognition No cognitive impairment 07/31/25 23:03 Fall Total Score 23 07/31/25 23:03 Level of Risk Standard/Low Risk 07/31/25 23:03 Problems (Last Reviewed 08/01/25 @ 07:19 by Davonte Becerra) Acute pyelonephritis (Acute) Alcohol use disorder, moderate, dependence (Chronic) Essential hypertension (Chronic 08/30/13) Gait abnormality (Acute) Hyperlipidemia (Chronic 12/24/12) Hypothyroidism (Chronic 12/24/12) DANIEL (obstructive sleep apnea) (Chronic) Postconcussion syndrome (Chronic 12/25/13) Stage 3a chronic kidney disease (CKD) (Chronic) Type 2 diabetes mellitus (Chronic) Attestation Statement: By documenting the first initial, last name, and credentials of the reporting nurse below, both parties acknowledge that all relevant information regarding the patient handoff has been communicated, and that all questions have been addressed to ensure continuity and safety of care. Additional Patient Information/Comments: Pt began experiencing unsteady gait last Monday while on cruise in [facility]. Discontinued all home rx for 3 days d/t feeling overloaded. Continues to have gait issues and has begun having more memory and speech difficulties. Febrile. EKG unremarkable. Treated with abx and IV Tylenol in ED. Fever resolved. Additional imaging to be scheduled urgent. Report Received From: Rani ED RN
[2025-08-02] VITALS (8 sets, daily range): BP systolic 121–161; BP diastolic 73–88; PULSE 64–82; RESP 16–17; TEMP 36.2–37.7; O2SAT 96–100
--- NOTE | 2025-08-02 | DI.CT_ITS ---
Exam(s) CT BRAIN NECK CTA EXAM: CT BRAIN NECK CTA CLINICAL HISTORY: query vertebral artery patency per US carotids. TECHNIQUE: Imaging Protocol: Axial CT angiography was performed with multi- slice acquisition and multi-planar and/or 3D reconstructions. CONTRAST MATERIAL: Intravenous: Omnipaque 350 Contrast volume:70 mL COMPARISON: CT CT HEAD WO from 07/31/2025 FINDINGS: CTA Neck W: Aortic arch anatomy: There is some partially calcified plaque at the origin of the left common carotid artery off the aortic arch. Approximately 20 percent stenosis at this level. No intimal flap evident in the aortic arch. Anterior circulation: There is otherwise no significant stenosis in the common carotid arteries. There is significant plaque in the proximal internal carotid arteries bilaterally, partially calcified. Approximately 3 30-40 percent stenosis bilaterally. The internal carotid arteries above this level in the upper neck are patent as well as within the skull base-carotid canals. Posterior circulation: The right vertebral artery originates in conventional fashion off of the right subclavian artery and without significant stenosis at its origin the right vertebral artery ascends as the dominant vertebral artery with luminal diameter of approximately 4 mm within the foramen transversarium. At the skull base it is a sole contributor to formation of the basilar artery. The left vertebral artery is occluded and not reconstituted in the foramen transversarium until the C2 level. It does not contribute to the formation of the basilar artery at the skull base. CTA Brain W: Anterior circulation: Both internal carotid arteries are patent in the skull base-carotid canals as well as within the cavernous sinuses. There is peripheral circumferential calcification of both internal carotid arteries in the cavernous sinuses but without high-grade stenosis. The supraclinoid aspects of the ICAs are patent. Both A1 segments are patent as are the anterior cerebral arteries and there is no evidence of aneurysm at the level of the anterior communicating artery. Both middle cerebral arteries are patent with no evidence of significant stenosis nor intraluminal thrombus. There also no aneurysms of these vessels. Posterior circulation: The basilar artery ascends without significant stenosis. Distally it gives off patent bilateral superior cerebellar arteries. Above this level it terminates as a patent right posterior cerebral artery. The left P1 segment is thin. The left posterior cerebral artery is predominantly fed by posterior communicating artery on the left side of the [id number]. There is no evidence of aneurysm at the tip of the basilar artery nor elsewhere in the [id number]. CT BRAIN: There is no evidence of intracranial hemorrhage, mass effect, or shift of midline structures. There are no extra-axial fluid collections. Ventricles are not enlarged or shifted. There are no ring enhancing lesions in the brain and no abnormal meningeal enhancement. IMPRESSION: 1. 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 The right vertebral artery is patent and is the sole contributor to the formation of the basilar artery at the skull base 2. There is plaque at level of the proximal internal carotid arteries bilaterally with approximately 30-40 percent stenosis bilaterally in these vessels in the neck. 3. The left posterior cerebral artery is probably fed by posterior communicating artery on the left side of the [id number]. Called to hospitalist 08/02/2025 at 5:45 p.m. RADIATION DOSE DELIVERED: 2,330mGy.cm Total DLP DATA REPOSITORY: All CT scans at this facility are submitted to the National Radiology Data Registry (NRDR) Dose Index Registry (DIR) with the [employer] (ACR). RADIATION OPTIMIZATION: All CT scans at this facility use at least one of these dose optimization techniques: automated exposure control; mA and/or kV adjustment per patient size (includes targeted exams where dose is matched to clinical indication); or iterative reconstruction.
[2025-08-02] MEDS: Milk of Magnesia 30 ML CUP PO (03:03)
[2025-08-02] MEDS: Normal Saline 1,000 ML 150 ML IV ×2 (03:46→09:36)
[2025-08-02] MEDS: Levothyroxine 88 MCG TAB PO (05:27)
[2025-08-02] MEDS: Heparin 5,000 UNITS/ML VIAL 5000 UNITS SC ×3 (05:28→21:51)
[2025-08-02 06:59] LABS: Abs Immature Grans 0.07 10^3/uL (0.0-0.06); HCT 28.7 % (40.0-50.0); HGB 10.0 g/dL (13.5-17.5); MCH 31.4 pg (27.0-33.0); MCHC 34.8 % (32.0-36.0); MCV 90 fL (80-95); MPV 10.8 fL (8.0-11.0); Platelet Count 253 10^3/uL (130-400); RBC 3.18 10^6/uL (4.36-5.78); RDW 12.6 % (11.8-14.1); RDW-SD 42.6 fL; WBC 11.44 10^3/uL (4.4-10.8)
[2025-08-02 07:09] LABS: RBC Morphology Normal
[2025-08-02 07:10] LABS: ALT 94 U/L (10-49); AST 49 U/L (<34); Albumin 3.4 g/dL (3.2-5.0); Alkaline Phosphatase 84 U/L (46-116); Anion Gap 7.7 mmol/L (3-11); BUN 36 mg/dL (9-23); Bilirubin, Total 0.4 mg/dL (0.2-1.2); CO2 22.3 mmol/L (20.0-31.0); Calcium 7.3 mg/dL (8.3-10.6); Chloride 107 mmol/L (98-107); Glucose 94 mg/dL (74-106); Potassium 4.0 mmol/L (3.5-5.1); Sodium 137 mmol/L (136-145); Total Protein 6.1 g/dL (5.7-8.2)
[2025-08-02] MEDS: DULoxetine 30 MG CAP 60 MG PO (08:19)
[2025-08-02] MEDS: Aspirin 81 MG CHEW PO (08:20)
[2025-08-02] MEDS: Lisinopril 20 MG TAB PO (08:20)
[2025-08-02] MEDS: Gabapentin 300 MG CAP PO ×2 (08:20→19:35)
[2025-08-02] MEDS: Metoprolol 50 MG TAB PO ×2 (08:20→19:35)
[2025-08-02] MEDS: Tamsulosin 0.4 MG CAPCR PO (08:20)
[2025-08-02] MEDS: Thiamine 100 MG TAB PO (08:20)
[2025-08-02] MEDS: Multivitamin TAB 1 TAB PO (08:20)
[2025-08-02] MEDS: cefTRIAXone 1 GM/50 ML BAG IVPB (08:21)
--- NOTE | 2025-08-02 10:15 | PT.INTREAT ---
PT Notes Visit Reasons: Acute Left Pyelonephritis, Gait Abnormality, DANISH Inpatient Physical Therapy Treatment Note [facility] Date: 08/02/25 PRECAUTIONS:Fall. Standard. Activity as tolerated. SUBJECTIVE: Pt is agreeable to work with PT OBJECTIVE: Pt presented sitting independently at edge of bed, present for entire rx ? VITALS: Monitored by nursing ? Therapeutic Activities (69387i[2]): Direct one-on-one instruction in dynamic activities to improve functional performance. ? BED MOBILITY/TRANSFERS? Sit-stand: CG of 1? Stand-sit: CG of 1 ? Provided skilled cues and instruction on performance and technique throughout. GAIT? Assistive Device: Single point cane ? Assist: CGA of 1 and occasional min A of 1 ? Distance:? 75 ft x 2 ? Deviation: occasional decreased LE clearance ? STAIRS: Ascended and descended steps in therapy room x 1 with hand rail, single point cane and CG of 1? Provided skilled instruction in proper exercise performance ASSESSMENT:?Pt was slightly unsteady at times but overall did well with ambulating with single point cane. PLAN: 1-2x/day, 7 days/week x 1 week. Plan of care has been reviewed with the ENVIRONMENTAL PROPERTY ASSESSOR providing the service under Physical Therapy direction. Continue Physical Therapy intervention for pain management as needed, strengthening, bed mobility, transfers, gait, stairs, balance training, and use of assistive device. TREATMENT CODE/TIME: 12588 10:15-10:39 24 minutes DISCHARGE RECOMMENDATION: PT for continued rehabilitation and strengthening.
--- NOTE | 2025-08-02 12:35 | PTTR_ITS ---
PT Notes Visit Reasons: Acute Left Pyelonephritis, Gait Abnormality, DANISH Inpatient Physical Therapy Treatment Note [facility] Date: 08/03/25 PRECAUTIONS:Fall. Standard. Activity as tolerated. SUBJECTIVE: Pt reports that he does not feel like he needs a cane but will use one. He would like to be able to return to walking daily. [place]. OBJECTIVE: Pt presented sitting in chair, present for entire rx ? VITALS: Monitored by nursing ? Therapeutic Activities (21425r[1]): Direct one-on-one instruction in dynamic activities to improve functional performance. ? BED MOBILITY/TRANSFERS? Sit-stand:Supervision of 1? Stand-sit: Supervision of 1 ? Provided skilled cues and instruction on performance and technique throughout. GAIT? Assistive Device: Single point cane ? Assist: CGA of 1 ? Distance:? 100 ft x 2 ? Deviation: adequate LE clearance noted throughtout walk ? STAIRS: Ascended and descended steps in therapy room x3 with hand rail, single point cane and CG of 1; some SOB noted after 3rd time ? Provided skilled instruction in proper exercise performance Pt education: rest when noting SOB or increased unsteadiness. Consider ice planning division superintendent for cane or use of hiking poles once he is well enough to resume his usual daily walks. ASSESSMENT:?Pt was able to ambulate further and only required CG of 1. PLAN: 1-2x/day, 7 days/week x 1 week. Plan of care has been reviewed with the SERVICE STATION EQUIPMENT MECHANIC providing the service under Physical Therapy direction. Continue Physical Therapy intervention for pain management as needed, strengthening, bed mobility, transfers, gait, stairs, balance training, and use of assistive device. TREATMENT CODE/TIME: 91500 10:44-11:05 21 minutes DISCHARGE RECOMMENDATION: PT for continued rehabilitation and strengthening.
[2025-08-02] MEDS: Normal Saline Flush 10 ML SYR IVP (15:20)
[2025-08-02] MEDS: Normal Saline - Diluent 50 ML VIAL IJ (15:20)
[2025-08-02] MEDS: Normal Saline 500 ML IV ×2 (15:23→17:14)
--- NOTE | 2025-08-02 16:09 | PGE_ITS ---
Date of Service Date of service: 08/02/25 Time of Service: 08:00 Assessment and Plan Assessment and plan (1) Occlusion of right vertebral artery: Status: Acute Assessment and plan: US carotids showing R vertebral artery defect CTA head/neck showing R vertebral artery occlusion without regional flow. Left side patent. Reconsulting teleneurology. (2) Acute pyelonephritis: Start date: 07/31/25 Status: Acute Assessment and plan: Imaging consistent with acute pyelonephritis, febrile, neutrophilic leukocytosis Continue ceftriaxone and IV fluids Awaiting urine culture, GNRs so far (3) Gait abnormality: Start date: 07/31/25 Status: Acute Assessment and plan: Teleneurology advised imaging, carotid dopplers, echocardiogram Carotid US showing R vertebral artery defect, CTA showing occlusion as above Reconsulting teleneurology (4) Postconcussion syndrome: Status: Chronic Assessment and plan: Followed at [facility] (5) Alcohol use disorder, moderate, dependence: Status: Chronic Assessment and plan: No evidence of acute withdrawal at this time. (6) Hypothyroidism: Status: Chronic Assessment and plan: Continue outpatient replacement therapy daily. (7) Hyperlipidemia: Status: Chronic Assessment and plan: Continue outpatient medical therapy. (8) Essential hypertension: Status: Chronic Assessment and plan: Continue outpatient medical therapy adjusting as needed acutely. (9) Stage 3a chronic kidney disease (CKD): Status: Chronic Assessment and plan: With acute DANISH presenting with pyelonephritis, will gently hydrate with echocardiogram follow-up in the morning though the patient has no known CHF. (10) Type 2 diabetes mellitus: Status: Chronic Assessment and plan: Patient is currently on GLP-1 agonist with metformin. He does have associated neuropathy along with CKD. His neuropathy is flared with his gait abnormality and acute pyelonephritis as well as being off his medicines for 3 days. While hospitalized, he will be on glucometer measurements before meals and at bedtime with sensitive sliding scale short acting insulin coverage. (11) DANIEL (obstructive sleep apnea): Status: Chronic Assessment and plan: Patient is on CPAP and will use his home CPAP while hospitalized. Subjective Subjective Interval history since last seen: Mr. Mullins is comfortable, up in a chair with his at bedside. He has a mild headache, off and on. No other new concerns. Exam Narrative Exam Narrative: General: This is a pleasant man in no distress HEENT: Normocephalic, atraumatic CV: RRR Resp: CTAB Abd: soft, NTND Back: +CVAT on the left MSK: voluntary motion x4 Neuro: awake, alert, no focal deficits Objective Last Vital Signs Temp 36.7 C 08/02/25 15:13 Pulse 68 08/02/25 15:13 Resp 16 08/02/25 15:13 BP 155/88 H 08/02/25 15:13 Pulse Ox 98 08/02/25 15:13 Laboratory Results - last 24 hr 08/02/25 06:20 WBC 11.44 H RBC 3.18 L Hgb 10.0 L Hct 28.7 L MCV 90 MCH 31.4 MCHC 34.8 RDW 12.6 Plt Count 253 MPV 10.8 Immature Gran % See Differential Neutrophils % 77.0 Band Neutrophils % 2 Lymphocytes % 12.0 Monocytes % 7.0 Eosinophils % 2.0 Basophils % 0.0 Nucleated RBC % 0.0 Absolute Neutrophils 9.04 H Absolute Lymphocytes 1.37 Absolute Monocytes 0.80 Absolute Eosinophils 0.23 Absolute Basophils 0.00 RBC Morphology Normal Sodium 137 Potassium 4.0 Chloride 107 Carbon Dioxide 22.3 Anion Gap 7.7 BUN 36 H Creatinine 1.67 H Est GFR (CKD-EPI 2020) 40.60 Glucose 94 Calcium 7.3 L Total Bilirubin 0.4 AST 49 H ALT 94 H Alkaline Phosphatase 84 Total Protein 6.1 Albumin 3.4 PAWSS Have you Been Recently Intoxicated or Drunk Within the Last 30 days?: No Have you Ever Experienced Previous Episodes of Alcohol Withdrawal?: Unable to Obtain Have you ever Experienced Withdrawal Seizures?: No Have you ever Experienced Delirium Tremens(DT)s?: No Have you ever undergone Alcohol Rehabilitation Treatment (i.e, inpt ot outpatient treatment programs)?: No Have you ever Experienced Blackouts?: Yes Have you ever Combined Alcohol with other Downers within the last 90 days?: Yes Have you ever Combined Alcohol with any other Substance of Abuse during the last 90 days?: No Positive Blood Alcohol level on Presentation? [PCS.BAL]: No Evidence of Increased Autonomic Activity (i.e. HR>120, tremor, sweating, agitation, nausea)?: Yes Result: 2 VTE Prohylaxis Risk Level: Moderate/High Risk Contraindications: None Prophylaxis: Pharmacologic and Mechanical Time Spent with Patient Time Spent with Patient: 25-34 minutes Time was spent: preparing to see the patient(eg.review tests), obtaining and/or reviewing separately otained hiistory, ordering medications,tests, procedures, referring, communicating with other health healthcare network pricing consultant, indepentently interpreting results, counseling the patient and care coordination
--- NOTE | 2025-08-02 16:36 | W.PC.ACHO ---
Registration Status: ADM ELISA Primary Language: Preferred Language: Korean ED Information & Data Chief Complaint Urinary 07/31/25 19:16 Triage Note pt here c/o dysuria, urgency 07/31/25 19:08 and bilateral flank pain. pt denies blood in urine. Medical / Surgical History (Last Reviewed 08/01/25 @ 07:19 by Davonte Becerra) Deep venous thrombosis of left peroneal vein (~07/2022) COVID-19 Atypical chest pain History of tobacco use Allergic rhinitis (Last Reviewed 08/01/25 @ 07:19 by Davonte Becerra) History of colonoscopy (~09/2024) S/P Achilles tendon repair S/P carpal tunnel release S/P cubital tunnel release S/P tonsillectomy and adenoidectomy S/P appendectomy History of carpal tunnel surgery Most Recent Vital Signs Temperature 36.7 C 08/02/25 15:13 Temperature Source Temporal Artery Scan 08/02/25 15:13 Pulse 68 08/02/25 15:13 Pulse Rhythm Regular 07/31/25 23:03 Pulse 67 07/31/25 22:10 Respiratory Rate 16 08/02/25 15:13 Respiratory Effort Normal, Non-Labored 07/31/25 23:03 Respiratory Depth Normal 07/31/25 23:03 Respiratory Pattern Normal 07/31/25 23:03 Blood Pressure 155/88 H 08/02/25 15:13 Blood Pressure Mean 110 08/02/25 15:13 Blood Pressure Position Supine 07/31/25 19:08 Pulse Oximetry 98 08/02/25 15:13 Oxygen Delivery Method Room Air 08/02/25 15:13 Oxygen Flow Rate 0 08/02/25 15:13 Pain Level 0 08/02/25 07:45 Comment VS taken prior to give scheduled dose of metoprolol. 08/01/25 20:50 Comment room air 07/31/25 22:00 Allergies apixaban (From Eliquis) Adverse Reaction (Intermediate, Verified 07/31/25 19:15) Swelling/Edema pain and swelling in knees. zonisamide Adverse Reaction (Mild, Verified 07/31/25 19:15) Confusion confusion Precautions Isolation Standard precaution 07/31/25 19:11 Active Medications Generic Name Dose Route Start Last Admin Trade Name Freq PRN Reason Stop Dose Admin Acetaminophen 650 mg 07/31/25 23:43 08/01/25 21:04 Acetaminophen 325 Mg Tab PO 650 mg Q4H PRN PRN Administration Aspirin 81 mg 08/01/25 08:30 08/02/25 08:20 Aspirin 81 Mg Chew PO 81 mg DAILY ARMAND Administration Duloxetine HCl 60 mg 08/01/25 08:30 08/02/25 08:19 Duloxetine 30 Mg Cap PO 60 mg DAILY ARMAND Administration Gabapentin 300 mg 08/01/25 08:30 08/02/25 08:20 Gabapentin 300 Mg Cap PO 300 mg BID ARMAND Administration Heparin Sodium (Porcine) 5,000 units 08/01/25 06:00 08/02/25 15:24 Heparin 5,000 Units/Ml Vial SC 5,000 units Q8H ARMAND Administration Ceftriaxone Sodium/Dextrose 1 gm in 50 mls @ 100 mls/hr 08/01/25 08:00 08/02/25 11:51 Rocephin IVPB Infused Q24H ARMAND Infusion Insulin Aspart 0 units 08/01/25 08:00 08/02/25 11:52 Insulin Aspart 300 Units/3 Ml Pen SC Not Given 0800,1200,1700 [facility] Protocol Levothyroxine Sodium 88 mcg 08/01/25 06:00 08/02/25 05:27 Levothyroxine 88 Mcg Tab PO 88 mcg 0600 ARMAND Administration Lisinopril 20 mg 08/01/25 08:30 08/02/25 08:20 Lisinopril 20 Mg Tab PO 20 mg DAILY ARMAND Administration Magnesium Hydroxide 30 ml 07/31/25 23:43 08/02/25 03:03 Milk Of Magnesia 30 Ml Cup PO 30 ml DAILY PRN PRN Administration Metoprolol Tartrate 50 mg 08/01/25 08:30 08/02/25 08:20 Metoprolol 50 Mg Tab PO 50 mg BID ARMAND Administration Multivitamins 1 tab 08/01/25 08:30 08/02/25 08:20 Multivitamin Tab PO 1 tab DAILY ARMAND Administration Pravastatin Sodium 40 mg 08/01/25 00:03 08/01/25 20:55 Pravastatin 40 Mg Tab PO 40 mg HS ARMAND Administration Sodium Chloride 0 ml 08/02/25 15:19 08/02/25 15:20 Normal Saline Flush 10 Ml Syr IVP 10 ml PRN PRN Administration Sodium Chloride 50 ml 08/02/25 15:30 08/02/25 15:20 Normal Saline - Diluent 50 Ml Vial IJ 50 ml DIRECTED ARMAND Administration Tamsulosin HCl 0.4 mg 08/01/25 08:30 08/02/25 08:20 Tamsulosin 0.4 Mg Capcr PO 0.4 mg DAILY ARMAND Administration Thiamine HCl 100 mg 08/01/25 08:30 08/02/25 08:20 Thiamine 100 Mg Tab PO 100 mg DAILY ARMAND Administration IV IV Catheter Type [Right Peripheral IV Antecubital] IV Catheter Type [Left Hand] Saline Lock IV Catheter Type [Left Peripheral IV Antecubital] IV Catheter Gauge [Right 20 Antecubital] IV Catheter Gauge [Left Hand] 20 IV Catheter Gauge [Left 18 Antecubital] Diagnostics 08/02/25 Range/Units 06:20 WBC 11.44 H (4.4-10.8) 10^3/uL RBC 3.18 L (4.36-5.78) 10^6/uL Hgb 10.0 L (13.5-17.5) g/dL Hct 28.7 L (40.0-50.0) % MCV 90 (80-95) fL MCH 31.4 (27.0-33.0) pg MCHC 34.8 (32.0-36.0) % RDW 12.6 (11.8-14.1) % Plt Count 253 (130-400) 10^3/uL MPV 10.8 (8.0-11.0) fL Immature Gran % See Differential Neutrophils % 77.0 % Band Neutrophils % 2 % Lymphocytes % 12.0 % Monocytes % 7.0 % Eosinophils % 2.0 % Basophils % 0.0 % Nucleated RBC % 0.0 (0.0-0.3) % Absolute Neutrophils 9.04 H (1.2-6.7) 10^3/uL Absolute Lymphocytes 1.37 (1.2-3.4) 10^3/uL Absolute Monocytes 0.80 (0.1-0.8) 10^3/uL Absolute Eosinophils 0.23 (0.0-0.7) 10^3/uL Absolute Basophils 0.00 (0.0-0.2) 10^3/uL RBC Morphology Normal Sodium 137 (136-145) mmol/L Potassium 4.0 (3.5-5.1) mmol/L Chloride 107 (98-107) mmol/L Carbon Dioxide 22.3 (20.0-31.0) mmol/L Anion Gap 7.7 (3-11) mmol/L BUN 36 H (9-23) mg/dL Creatinine 1.67 H (0.73-1.18) mg/dL Est GFR (CKD-EPI 2020) 40.60 (mL/min/1.73m2) Glucose 94 (74-106) mg/dL Calcium 7.3 L (8.3-10.6) mg/dL Total Bilirubin 0.4 (0.2-1.2) mg/dL AST 49 H (<34) U/L ALT 94 H (10-49) U/L Alkaline Phosphatase 84 (46-116) U/L Total Protein 6.1 (5.7-8.2) g/dL Albumin 3.4 (3.2-5.0) g/dL 07/31/25 20:00 Urine Culture - Preliminary Urine - Reflex from Ua Gram negative annmarie [id number] Documentation Fingerstick Glucose Start: 07/31/25 23:43 Freq: .ACHS Status: Active Protocol: Activity Type Activity Date Activity User E-sign Co-sign Detail Recorded Client Recorded Date Recorded By Document 08/02/25 11:22 JOSE DAEMON [id number] 08/02/25 11:23 BKG DAEMON(2) Intake and Output - 24 Hour Total 07/31/25 19:03 thru 08/02/25 16:30 Intake Total 8400 Output Total 3125 Balance 5275 Weight 95.5 kg Intake: IV 6820 Oral 1580 Output: Urine 3125 Other: Urine Color Straw Urine Appearance Clear Urine Odor None Stool Size Small Stool Characteristics Formed [place] Risk Assessment History of Falls No History 07/31/25 23:03 Contributing Factors Impairments 07/31/25 23:03 Ambulatory Aids Independent 07/31/25 23:03 Tubes/Lines W/no contributing factors 07/31/25 23:03 Gait Evaluation W/no contributing factors 07/31/25 23:03 Cognition No cognitive impairment 07/31/25 23:03 Fall Total Score 23 07/31/25 23:03 Level of Risk Standard/Low Risk 07/31/25 23:03 Problems (Last Reviewed 08/01/25 @ 07:19 by Davonte Becerra) DANIEL (obstructive sleep apnea) (Chronic) Type 2 diabetes mellitus (Chronic) Gait abnormality (Acute) Acute pyelonephritis (Acute) Stage 3a chronic kidney disease (CKD) (Chronic) Alcohol use disorder, moderate, dependence (Chronic) Postconcussion syndrome (Chronic 12/25/13) Hypothyroidism (Chronic 12/24/12) Hyperlipidemia (Chronic 12/24/12) Essential hypertension (Chronic 08/30/13) Attestation Statement: By documenting the first initial, last name, and credentials of the reporting nurse below, both parties acknowledge that all relevant information regarding the patient handoff has been communicated, and that all questions have been addressed to ensure continuity and safety of care. Additional Patient Information/Comments: Pt brought to floor from PACU on stretcher. Pt was able to transfer from stretcher to chair independently. Pt was agited when arrived on floor. Oriented to room and call light placed within reach. Report Received From: PACU nurse
[2025-08-02] MEDS: Acetaminophen 325 MG TAB 650 MG PO (19:35)
[2025-08-02] MEDS: Pravastatin 40 MG TAB PO (19:35)
[2025-08-02] MEDS: Lactated Ringers 1,000 ML 150 ML IV (19:35)
[2025-08-03] MEDS: Acetaminophen 325 MG TAB 650 MG PO (02:07)
[2025-08-03] MEDS: Lactated Ringers 1,000 ML 150 ML IV ×2 (02:14→08:04)
[2025-08-03 03:11] VITALS: BP 146/71; PULSE 72; RESP 17; TEMP 37.1; O2SAT 97
[2025-08-03] MEDS: Heparin 5,000 UNITS/ML VIAL 5000 UNITS SC ×2 (05:48→13:47)
[2025-08-03] MEDS: Levothyroxine 88 MCG TAB PO (05:50)
[2025-08-03 05:53] VITALS: BP 146/76; PULSE 60; RESP 17; TEMP 36.5; O2SAT 96
[2025-08-03 06:37] LABS: Abs Immature Grans 0.13 10^3/uL (0.0-0.06); HCT 30.7 % (40.0-50.0); HGB 10.5 g/dL (13.5-17.5); MCH 32.0 pg (27.0-33.0); MCHC 34.2 % (32.0-36.0); MPV 9.9 fL (8.0-11.0); Platelet Count 334 10^3/uL (130-400); RBC 3.28 10^6/uL (4.36-5.78); RDW 13.1 % (11.8-14.1); RDW-SD 45.0 fL; WBC 11.85 10^3/uL (4.4-10.8)
[2025-08-03 06:51] LABS: MCV 94 fL (80-95)
[2025-08-03 06:52] LABS: RBC Morphology Normal
[2025-08-03 07:06] LABS: ALT 89 U/L (10-49); AST 38 U/L (<34); Albumin 3.6 g/dL (3.2-5.0); Alkaline Phosphatase 96 U/L (46-116); Anion Gap 9.6 mmol/L (3-11); BUN 26 mg/dL (9-23); Bilirubin, Total 0.4 mg/dL (0.2-1.2); CO2 24.4 mmol/L (20.0-31.0); Calcium 7.7 mg/dL (8.3-10.6); Chloride 109 mmol/L (98-107); Glucose 96 mg/dL (74-106); Magnesium 2.3 mg/dL (1.6-2.6); Potassium 5.2 mmol/L (3.5-5.1); Sodium 143 mmol/L (136-145); Total Protein 6.5 g/dL (5.7-8.2)
[2025-08-03] MEDS: DULoxetine 30 MG CAP 60 MG PO (08:02)
[2025-08-03] MEDS: Lisinopril 20 MG TAB PO (08:02)
[2025-08-03] MEDS: Gabapentin 300 MG CAP PO (08:02)
[2025-08-03] MEDS: Tamsulosin 0.4 MG CAPCR PO (08:03)
[2025-08-03] MEDS: Metoprolol 50 MG TAB PO (08:03)
[2025-08-03] MEDS: cefTRIAXone 1 GM/50 ML BAG IVPB (08:03)
[2025-08-03] MEDS: Aspirin 81 MG CHEW PO (08:03)
[2025-08-03] MEDS: Thiamine 100 MG TAB PO (08:03)
[2025-08-03] MEDS: Multivitamin TAB 1 TAB PO (08:03)
[2025-08-03] MEDS: Normal Saline Flush 10 ML SYR IVP (08:04)
[2025-08-03 10:51] VITALS: BP 169/70; PULSE 63; RESP 18; TEMP 36.4; O2SAT 96
[2025-08-03 15:05] VITALS: BP 171/77; PULSE 66; RESP 16; TEMP 36.9; O2SAT 99
--- NOTE | 2025-08-03 15:44 | HPE_ITS ---
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) Mild, followed by [facility] Patellar tendinitis, left knee (Chronic) Left anterior knee pain (Chronic) Type 2 diabetes mellitus with diabetic neuropathy, unspecified (Chronic) Sensorineural hearing loss, bilateral (Chronic 07/16/15) has hearing aids Postconcussion syndrome (Chronic 12/25/13) [place] [facility] Hypothyroidism (Chronic 12/24/12) Hyperlipidemia (Chronic 12/24/12) Essential hypertension (Chronic 08/30/13) Anxiety (Chronic 12/20/11) s/p concussion Medical History Deep venous thrombosis of left peroneal vein (~07/2022) managed with 3 mos of xarelto COVID-19 12/01/21, URI symptoms; 03/2023 Atypical chest pain 2020-negative ETT History of tobacco use quit 2013 Allergic rhinitis Surgical History History of colonoscopy (~09/2024) S/P Achilles tendon repair S/P carpal tunnel release S/P cubital tunnel release S/P tonsillectomy and adenoidectomy S/P appendectomy History of carpal tunnel surgery bilat Family History Mother , age 90 Essential hypertension Breast cancer Father , age 85 Essential hypertension Heart disease MURMUR Hyperlipidemia Sister Blood glucose abnormal Sister Graves' disease Essential hypertension Hyperlipidemia Sister Heart disease MURMUR Sister Heart disease MURMUR Brother Stroke Maternal Grandfather No problems noted. Paternal Grandfather Heart disease Maternal Grandmother No problems noted. Paternal Grandmother Heart disease Son Essential hypertension Daughter No problems noted. Maternal Uncle Leukemia Social History Smoking/Tobacco Use Status: Former Tobacco Use tobacco type: cigarettes and cigars Quit Date: 08/07/13 Tobacco: How many years used: 10 Quit status: has quit before Second Hand Exposure: Yes Smoking risk assessment performed?: Yes Alcohol Intake: current Alcohol Intake frequency: a few times a week Alcohol type: beer, wine and hard liquor Drug use: Daily Substance use type: marijuana and other Details: edibles Adopted: No Caregiver/Support person: No Foster care: No Household members: spouse Housing: house Number of Children: 2 Communication Needs: Hard of Hearing and Corrective Lenses Education Level: college Do you need help understanding health information?: Rarely current occupation: Retired banker at [employer] Pets and animals: Yes Pets and animals: cat(s) Sexually active: Yes Do you think of yourself as: straight/heterosexual Current gender identity: male What is your relationship status?: How often do you talk on the phone with friends or family?: once per week How often do you get together with friends or relatives?: once per week Do you belong to any clubs or organized social groups?: no Panel score (0-1 are the most socially isolated patients): 1 What type of physical activity do you participate in: walking Duration: 60-90 minutes/day Frequency: 1-2 times per week Na/Scientology: None Special na needs: No Agree to transfusion: Yes Seatbelt use: always Helmet use: Yes Helmet use: always Drive intox or ride w/intox flatbed company driver: No Working smoke detector in home: Yes Carbon monox detector in home: Yes Firearms in home: No Do you feel safe at home: Yes Do you feel safe in your relationship?: Yes Victim of physical abuse: No Victim of emotional abuse: No Victim of sexual abuse: No Meds Allergies and Home Medications Allergies Allergy/AdvReac Type Severity Reaction Status Date / Time apixaban (From Eliquis) AdvReac Intermediate Swelling/Ed Verified 07/31/25 19:15 caroline zonisamide AdvReac Mild Confusion Verified 07/31/25 19:15 Home Medications ?Medication ?Instructions ?Recorded ?Confirmed ?Type aspirin 81 mg chewable tablet 81 mg PO DAILY 12/21/12 07/31/25 History (Aspirin Low-Strength) Lactobacillus acidophilus 100 2 cap PO DAILY 01/26/17 07/31/25 History million cell capsule riboflavin (vitamin B2) 100 mg 2 cap PO BID 01/26/17 1 10/01/24 History tablet cholecalciferol (vitamin D3) 25 1,000 unit PO DAILY 07/31/25 History mcg (1,000 unit) capsule (Vitamin D3) duloxetine 60 mg capsule,delayed 60 mg PO DAILY #90 ca ps 09/05/18 07/31/25 Rx release coenzyme Q10 100 mg capsule 400 mg PO DAILY 09/18/18 1 10/01/24 History mometasone 0.1 % topical cream 1 applic topical DAILY PRN skin 01/08/20 07/31/25 Rx irritation #15 grams calcium carbonate 1,800 mg PO DAILY 11/27/20 1 10/01/24 History rimegepant 75 mg disintegrating 75 mg PO ONCE PRN 12/0507/31/25 History tablet (Nurtec ODT) galcanezumab-gnlm 120 mg/mL 120 mg subcut QMONTH Heada ches 01/03/23 07/31/25 History subcutaneous pen injector from concussion multivitamin 1 cap PO DAILY 06/07/2307/08 History omega-3 fatty acids-fish oil 300 1 cap PO DAILY 07/31/25 History mg-1,000 mg capsule B complex-C 500 mg-folic 400 1 tab PO DAILY #90 tabs 1 08/24/23 07/31/25 Rx mcg-zinc 23.9 mg-copper 3 mg-vit E tablet (Stress B-Complex) ascorbic acid (vitamin C) 1,000 mg 1 g PO BID 06/24/24 07/31/25 History capsule magnesium citrate 100 mg tablet 100 mg PO DAILY 07/31/25 History metformin 500 mg tablet 500 mg PO BID #180 tabs 0201/2907/31/25 Rx metoprolol succinate 100 mg 100 mg PO DAILY #90 tabs 0 09/12/24 07/31/25 Rx tablet,extended release 24 hr semaglutide 2 mg/dose (8 mg/3 mL) 2 mg (0.75 mL) subcu t QWEEK #9 mL 09/12/24 07/31/25 Rx subcutaneous pen injector gabapentin 300 mg capsule 300 mg PO BID #180 caps 09/0707/31/25 Rx levothyroxine 88 mcg tablet 88 mcg PO DAILY #90 tabs 0 09/20/24 07/31/25 Rx lisinopril 40 mg tablet 40 mg PO DAILY #90 tabs 09/0707/31/25 Rx pravastatin 40 mg tablet 40 mg PO DAILY #90 tabs 09/0707/31/25 Rx lutein 10 mg tablet 10 mg PO DAILY 06/20/2507/08 History sildenafil 100 mg tablet 100 mg PO DAILY PRN sexual 1 08/20/24 07/31/25 Rx activity #4.0 tabs levofloxacin 750 mg tablet 750 mg PO DAILY #5 tabs Rx Results Labs 08/03/25 06:27 08/03/25 06:27 Labs: Laboratory Results - last 24 hr 08/03/25 06:27 WBC 11.85 H RBC 3.28 L Hgb 10.5 L Hct 30.7 L MCV 94 D MCH 32.0 MCHC 34.2 RDW 13.1 Plt Count 334 MPV 9.9 Immature Gran % See Differential Neutrophils % 72.0 Band Neutrophils % 1 Lymphocytes % 17.0 Monocytes % 6.0 Eosinophils % 2.0 Basophils % 0.0 Metamyelocytes % 2 Nucleated RBC % 0.0 Absolute Neutrophils 8.65 H Absolute Lymphocytes 2.01 Absolute Monocytes 0.71 Absolute Eosinophils 0.24 Absolute Basophils 0.00 RBC Morphology Normal Sodium 143 Potassium 5.2 H D Chloride 109 H Carbon Dioxide 24.4 Anion Gap 9.6 BUN 26 H Creatinine 1.56 H Est GFR (CKD-EPI 2020) 43.92 Glucose 96 Calcium 7.7 L Magnesium 2.3 Total Bilirubin 0.4 AST 38 H ALT 89 H Alkaline Phosphatase 96 Total Protein 6.5 Albumin 3.6 Last Vital Signs Temp 36.9 C 08/03/25 15:05 Pulse 66 08/03/25 15:05 Resp 16 08/03/25 15:05 BP 171/77 H 08/03/25 15:05 Pulse Ox 99 08/03/25 15:05 VTE Prohylaxis Risk Level: Moderate/High Risk Contraindications: None Prophylaxis: Pharmacologic and Mechanical PAWSS Have you Been Recently Intoxicated or Drunk Within the Last 30 days?: No Have you Ever Experienced Previous Episodes of Alcohol Withdrawal?: Unable to Obtain Have you ever Experienced Withdrawal Seizures?: No Have you ever Experienced Delirium Tremens(DT)s?: No Have you ever undergone Alcohol Rehabilitation Treatment (i.e, inpt ot outpatient treatment programs)?: No Have you ever Experienced Blackouts?: Yes Have you ever Combined Alcohol with other Downers within the last 90 days?: Yes Have you ever Combined Alcohol with any other Substance of Abuse during the last 90 days?: No Positive Blood Alcohol level on Presentation? [PCS.BAL]: No Evidence of Increased Autonomic Activity (i.e. HR>120, tremor, sweating, agitation, nausea)?: Yes Result: 2
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
--- NOTE | 2025-08-06 09:20 | PDOC.HHF2F ---
Date of service: 08/03/25 Time of Service: 08:00 Home Health Referral Home Health Orders Clinical synopsis of why skilled professionals are needed: Patient has acute on chronic weakness and gait instability secondary to multiple concussions. PT evaluation while hospitalized recommending home health PT. Medical diagnosis necessitation home health referral: Postconcussion syndrome Physical Therapist: Check all that apply Increase strength & endurance for safe mobility at home: Ordered To design/establish home maintenance program: Ordered Fall reduction therapy program for patient with history of frequent falls: Ordered Home safety evaluation and teaching/gait training including stair management (if applicable): Ordered Encounter Date and Reason: I certify that a FTF encounter for this patient was performed on August 03, 2025 and that such encounter was related to the primary reason the patient requires home health services. The encounter was conducted in the following manner: By me as the certifying physician, MANUFACTURING ENGINEER ASSEMBLY, PA or By an inpatient physician, MANUFACTURING ENGINEER ASSEMBLY or PA during an inpatient stay who communicated findings to me, Certification And Authentication I certify that I composed the above information based on my clinical judgment relating to this patient's medical condition and, if applicable, clinical findings communicated to me by the NPP or inpatient physician who performed the FTF encounter. Name of Provider that will be monitoring home health services: Nany Mao
== END 2025-08-03 16:33 | disposition home health service (06) ==
LOC: ER 20:36 → MS 22:52
PROVIDERS: Admitting Provider Family Medicine; Emergency Provider Physician Assistant; PCP Family Medicine; Responsible Provider Family Medicine; Visit Provider Family Medicine
DX: N10 Acute pyelonephritis (principal); R26.9 Unspecified abnormalities of gait and mobility; I65.02 Occlusion and stenosis of left vertebral artery; F10.20 Alcohol dependence, uncomplicated; E03.9 Hypothyroidism, unspecified; E78.2 Mixed hyperlipidemia; I12.9 Hypertensive chronic kidney disease with stage 1 through stage 4 chronic kidney disease, or unspecified chronic kidney disease; E11.22 Type 2 diabetes mellitus with diabetic chronic kidney disease; G47.33 Obstructive sleep apnea (adult) (pediatric); K57.30 Diverticulosis of large intestine without perforation or abscess without bleeding; M50.21 Other cervical disc displacement, high cervical region; M48.02 Spinal stenosis, cervical region; M48.061 Spinal stenosis, lumbar region without neurogenic claudication; B96.20 Unspecified Escherichia coli [E. coli] as the cause of diseases classified elsewhere; N28.1 Cyst of kidney, acquired; F07.81 Postconcussional syndrome; N17.9 Acute kidney failure, unspecified; N18.31 Chronic kidney disease, stage 3a; Z79.84 Long term (current) use of oral hypoglycemic drugs; Z79.85 Long-term (current) use of injectable non-insulin antidiabetic drugs; M54.32 Sciatica, left side; E11.40 Type 2 diabetes mellitus with diabetic neuropathy, unspecified; H90.3 Sensorineural hearing loss, bilateral; F41.9 Anxiety disorder, unspecified; Z86.718 Personal history of other venous thrombosis and embolism; D72.829 Elevated white blood cell count, unspecified
CPT/HCPCS: 00123; 36415; 70496; 70498; 80053; 80307; 83690; 87077; 87637; 93005; 93306; 96365; 96375; 97162; 97530; 99285; 70450; 70551; 72141; 72146; 72148; 74176; 80320; 81003; 81015; 83605; 83735; 84443; 84484; 85025; 85610; 87086; 87186; 93010; 93880; 99223; 99231; 99239; G0378; J0131; J0692; J0696; J1644; J1815; J1885